=== PATIENT | female | born 1965 | race Caucasian/White ===

== ENCOUNTER 2018-03-04 03:18 | Inpatient (IN) ==
[2018-03-04] MEDS ORDERED: Ipratropium/Albuterol Neb 3 ML IH ONE (04:03)
[2018-03-04] MEDS ORDERED: 0.9 % Sodium Chloride 500 ML IVC ONE (04:05)
--- NOTE | 2018-03-04 04:05 | Emergency Department Note ---
Disposition Clinical Impression: Dyspnea, COPD (chronic obstructive pulmonary disease), History of lung cancer Disposition: Still a Patient Condition: Good Referrals: Jhonny Perdomo MD [Primary Care Provider] - Forms: ED Satisfaction Letter General Adult HPI - General Chief complaint: ED Shortness of Breath/Dyspnea Stated complaint: hamzah Time Seen by Provider: 03/04/18 03:40 Source: patient, EMS Limitations: no limitations Nursing Notes Reviewed: Yes Vital Signs Reviewed: Yes - History of Present Illness HPI Narrative: 52-year-old female with a past medical history of hypertension, hyperlipidemia, lung cancer, COPD. She reports approximately 2 weeks of shortness of breath. She has seen her oncologist about this who has put her on steroids. She is still on the stretcher now. She reports that she is not getting any better. She does state that it feels like her COPD is the problem. No hemoptysis. No hx of PE/DVT. Intermittent cough. No fever. Pain Scale: 0 Consistency: constant Improves with: nothing Worsens with: other (exertion) Associated symptoms: Reports: denies other symptoms Treatments Prior to Arrival: none - Related Data Home Medications Medication Instructions Recorded Confirmed Albuterol Neb [AccuNeb] 0.63 mg IH Q6H PRN 11/27/17 02/28/18 Albuterol Sulfate [Ventolin Hfa] 2 puff IH QID PRN 11/27/17 02/28/18 Atenolol [Tenormin] 25 mg PO DAILY 11/27/17 02/28/18 Diclofenac Sodium [Voltaren] 1 appl TP QID PRN 11/27/17 02/28/18 Gabapentin [Neurontin] 600 mg PO TID 11/27/17 02/28/18 Ipratropium/Albuterol Sulfate 1 puff IH QID 11/27/17 02/24/18 [Combivent Respimat 20-100 Mcg] Loratadine [Claritin] 10 mg PO DAILY 11/27/17 02/28/18 Montelukast [Singulair] 10 mg PO HS 11/27/17 02/28/18 Omeprazole [PriLOSEC] 20 mg PO DAILY 11/27/17 02/28/18 Oxybutynin [Ditropan] 2.5 mg PO DAILY 11/27/17 02/28/18 Oxygen 2 l NS AD 11/27/17 02/28/18 Spironolactone [Aldactone] 25 mg PO BID 11/27/17 02/28/18 DULoxetine [Cymbalta] 30 mg PO DAILY 11/29/17 02/28/18 Previous Rx's Medication Instructions Recorded Promethazine [Phenergan] 25 mg PO Q6HR PRN #30 tablet 01/23/18 Ondansetron [Zofran] 8 mg PO Q8HR PRN #30 tablet 02/10/18 OxyCODONE Immed Rel [Roxicodone 5 5 - 10 mg PO Q4H PRN 30 Days #240 02/10/18 MG] tablet ALPRAZolam [Xanax 0.5 MG Tablet] 0.5 mg PO QID PRN 30 Days #120 02/18/18 tablet Demeclocycline HCl 300 mg PO BID #60 tablet 02/19/18 Benzonatate [Tessalon] 100 mg PO TID #60 capsule 02/20/18 Guaifenesin [Mucus ER] 600 mg PO BID #60 tab.er.12h 02/20/18 Nystatin [Nystatin Suspension] 500,000 units PO QID #120 ml 02/20/18 Ipratropium/Albuterol Neb [Duoneb] 3 ml IH [id number] PRN #100 inhsol 02/25/18 predniSONE [PredniSONE] 10 mg PO DAILY #30 tablet 02/28/18 Allergies Allergy/AdvReac Type Severity Reaction Status Date / Time budesonide [From Symbicort] AdvReac Chest Pain Verified 02/28/18 14:33 Formoterol [From Symbicort] AdvReac Chest Pain Verified 02/28/18 14:33 All systems ED: reviewed and negative except as stated. Constitutional: Denies: fever ENT ED: Denies: throat pain Cardiovascular: Denies: chest pain Respiratory: Reports: cough, dyspnea Gastrointestinal: Denies: abdominal pain Integumentary: Denies: rash Past Medical History - Past Medical History Medical history: Reports: asthma, cancer, COPD, hyperlipidemia, hypertension Surgical history: Reports: appendectomy, , cholecystectomy Psychiatric history: Reports: anxiety, depression - Social History Smoking Status: Current every day smoker Smokeless Tobacco Status: No Alcohol use: Reports: none Drug use: Reports: none Physical Exam - General Limitations: no limitations General appearance: alert, in no apparent distress - Head Head exam: atraumatic - Eye Eye exam: Present: normal appearance, PERRL - ENT ENT exam: normal exam - Neck Neck exam: Present: normal inspection - Respiratory Respiratory exam: Present: other (rhonchi with occasional expiratory wheeze) - Cardiovascular Cardiovascular exam: Present: regular rate, normal rhythm - Abdominal Exam Abdominal exam: Present: soft, Non-Tender - Extremities Exam Extremities exam: Present: other (1+ bilateral edema.) - Back Exam Back exam: Present: normal inspection - Neurological Exam Neurological exam: Present: alert, oriented X3 - Psychiatric Psychiatric exam: Present: normal affect, normal mood - Skin Skin exam: Present: warm, dry Course Course Narrative: CTA pending. Labwork stable. Signed out to the day team to make final disposition pending results. She feels improvement after the breathing treatments. She does have a decreased BP, but is not symptomatic with it. Vital Signs Temperature 98.6 F 03/04/18 03:23 Pulse Rate 88 03/04/18 03:23 Respiratory Rate 18 03/04/18 03:23 Blood Pressure 97/60 03/04/18 03:23 O2 Sat by Pulse Oximetry 95 03/04/18 03:23 Temperature 98.6 F 03/04/18 03:23 Pulse Rate 103 03/04/18 06:05 Respiratory Rate 18 03/04/18 06:05 Blood Pressure 85/54 03/04/18 06:05 O2 Sat by Pulse Oximetry 93 03/04/18 06:05 Oxygen Delivery Oxygen Delivery Nasal Cannula Medical Decision Making - Medical Records Medical records reviewed: Yes I reviewed the patient's medical records. - Lab Data Lab results reviewed: Yes I reviewed the patient's lab results. Result diagrams: 03/04/18 04:23 03/04/18 04:23 Lab Results 03/04/18 03/04/18 03/04/18 Range/Units 04:23 04:23 04:23 WBC 2.5 L (4.3-11.1) K/mcL RBC 2.95 L (3.82-4.97) M/mcL Hgb 8.4 L (11.5-15.4) g/dL Hct 26.4 L (35.3-44.9) % MCV 89.5 (83.0-100.0) fL MCH 28.5 (28.0-33.3) pg MCHC 31.8 (31.6-35.5) g/dL RDW 13.4 (11.5-14.5) % Plt Count 301 (140-400) K/mcL MPV 9.3 L (9.4-12.4) fL Immature Gran % 4.4 H (0-4) % Seg Neutrophils % 80.4 % Lymphocytes % 10.0 % Monocytes % 4.4 % Eosinophils % 0.0 % Basophils % 0.8 % Neutrophils # 2.0 (1.6-8.9) K/mcL Lymphocytes # 0.3 L (0.6-4.6) K/mcL Monocytes # 0.1 (0.0-1.3) K/mcL Eosinophils # 0.0 (0.0-0.6) K/mcL Basophils # 0.0 (0.0-0.2) K/mcL D-Dimer 1220 H (0-500) ng/mLFEU Sodium 133 L (136-145) mEq/L Potassium 4.1 (3.5-5.1) mEq/L Chloride 90 L (98-107) mEq/L Carbon Dioxide 37 H (23-29) mEq/L BUN 16 (6-20) mg/dL Creatinine 0.57 L (0.60-1.20) mg/dL Est GFR ( Amer) > 60 (> 60) Est GFR (Non-Af Amer) > 60 (> 60) BUN/Creatinine Ratio 28 H (6-26) Glucose 115 H (70-105) mg/dL Calculated Osmolality 278 L (280-300) Calcium 9.4 (8.6-10.3) mg/dL Troponin I < 0.03 (< 0.04) ng/mL B-Natriuretic Peptide (Less than 100) pg/mL 03/04/18 Range/Units 04:23 WBC (4.3-11.1) K/mcL RBC (3.82-4.97) M/mcL Hgb (11.5-15.4) g/dL Hct (35.3-44.9) % MCV (83.0-100.0) fL MCH (28.0-33.3) pg MCHC (31.6-35.5) g/dL RDW (11.5-14.5) % Plt Count (140-400) K/mcL MPV (9.4-12.4) fL Immature Gran % (0-4) % Seg Neutrophils % % Lymphocytes % % Monocytes % % Eosinophils % % Basophils % % Neutrophils # (1.6-8.9) K/mcL Lymphocytes # (0.6-4.6) K/mcL Monocytes # (0.0-1.3) K/mcL Eosinophils # (0.0-0.6) K/mcL Basophils # (0.0-0.2) K/mcL D-Dimer (0-500) ng/mLFEU Sodium (136-145) mEq/L Potassium (3.5-5.1) mEq/L Chloride (98-107) mEq/L Carbon Dioxide (23-29) mEq/L BUN (6-20) mg/dL Creatinine (0.60-1.20) mg/dL Est GFR ( Amer) (> 60) Est GFR (Non-Af Amer) (> 60) BUN/Creatinine Ratio (6-26) Glucose (70-105) mg/dL Calculated Osmolality (280-300) Calcium (8.6-10.3) mg/dL Troponin I (< 0.04) ng/mL B-Natriuretic Peptide 86 (Less than 100) pg/mL - Radiology Data Radiology results reviewed: Yes I reviewed the patient's radiology results. - EKG Data EKG #1 EKG attestation: Yes I reviewed and interpreted this EKG. EKG shows normal: sinus rhythm Rate: normal Rhythm: NSR Interpretation: no acute changes Attestation Statement - Attestation Attestation: I examined this patient and my medical decision-making was reviewed with the Resident Physician. I agree with the documented findings, disposition and treatment plan as described except to the extent set forth below. Patient with dyspnea, history of cancer, will need CT scan of the chest to rule out pulmonary embolism. Possible pneumonia on chest x-ray. Would recommend admission for antibiotics, evaluation of dyspnea in the setting of chemotherapy.
[2018-03-04 04:38] LABS: Basophils % 0.8 %; Hematocrit 26.4 % (35.3-44.9); Hemoglobin 8.4 g/dL (11.5-15.4); Immature Granulocytes % 4.4 % (0-4); Lymphocytes # 0.3 K/mcL (0.6-4.6); Mean Corpuscular HGB Conc 31.8 g/dL (31.6-35.5); Mean Corpuscular Hemoglobin 28.5 pg (28.0-33.3); Mean Corpuscular Volume 89.5 fL (83.0-100.0); Mean Platelet Volume 9.3 fL (9.4-12.4); Monocytes # 0.1 K/mcL (0.0-1.3); Monocytes % 4.4 %; Platelet Count 301 K/mcL (140-400); Red Blood Count 2.95 M/mcL (3.82-4.97); Red Cell Distribution Width 13.4 % (11.5-14.5); Segmented Neutrophils % 80.4 %
[2018-03-04] MEDS ORDERED: Isovue-370 500 ML INFUS..BTL IV ONE (04:50)
[2018-03-04 05:02] LABS: Troponin I < 0.03 ng/mL (< 0.04)
[2018-03-04 05:03] LABS: BUN/Creatinine Ratio 28 (6-26); Blood Urea Nitrogen 16 mg/dL (6-20); Calcium 9.4 mg/dL (8.6-10.3); Carbon Dioxide 37 mEq/L (23-29); Chloride 90 mEq/L (98-107); Glucose 115 mg/dL (70-105); Osmolality,Calculated 278 (280-300); Potassium 4.1 mEq/L (3.5-5.1); Sodium 133 mEq/L (136-145); eGFR For African Americans > 60 (> 60); eGFR For Non-African Americans > 60 (> 60)
[2018-03-04] MEDS ORDERED: 0.9 % Sodium Chloride 1,000 ML IVC ONE (06:31)
[2018-03-04] MEDS ORDERED: Ondansetron 4 MG/2 ML VIAL IVP PRN (08:15)
[2018-03-04] MEDS ORDERED: Acetaminophen 325 MG TABLET PO PRN (08:15)
[2018-03-04] MEDS ORDERED: *HR* Promethazine 25 MG/ML VIAL IVP PRN (08:15)
[2018-03-04] MEDS ORDERED: Naloxone 0.4 MG/ML INJ IVP PRN (08:15)
[2018-03-04] MEDS ORDERED: levoFLOXacin 750 MG TABLET PO ONE (08:19)
[2018-03-04] MEDS ORDERED: ALPRAZolam 0.5 MG TABLET PO PRN (08:20)
--- NOTE | 2018-03-04 08:23 | Emergency Department Note ---
Disposition Clinical Impression: History of lung cancer Dyspnea Qualifiers: Dyspnea type: dyspnea on exertion Qualified Code(s): R06.09 - Other forms of dyspnea COPD (chronic obstructive pulmonary disease) Qualifiers: COPD type: unspecified COPD Qualified Code(s): J44.9 - Chronic obstructive pulmonary disease, unspecified Disposition: Admitted As Inpatient Condition: Good Referrals: Jhonny Perdomo MD [Primary Care Provider] - Forms: ED Satisfaction Letter Time of Disposition: 08:00 SOB HPI - General Chief Complaint: ED Shortness of Breath/Dyspnea Stated Complaint: hamzah Time Seen by Provider: 03/04/18 03:40 Source: patient, EMS Mode of arrival: ambulatory Limitations: no limitations Nursing Notes Reviewed: Yes Vital Signs Reviewed: Yes - Related Data Home Medications Medication Instructions Recorded Confirmed Albuterol Neb [AccuNeb] 0.63 mg IH Q6H PRN 11/27/17 03/04/18 Albuterol Sulfate [Ventolin Hfa] 2 puff IH QID PRN 11/27/17 03/04/18 Atenolol [Tenormin] 25 mg PO DAILY 11/27/17 03/04/18 Diclofenac Sodium [Voltaren] 1 appl TP QID PRN 11/27/17 03/04/18 Gabapentin [Neurontin] 600 mg PO TID 11/27/17 03/04/18 Ipratropium/Albuterol Sulfate 1 puff IH QID 11/27/17 03/04/18 [Combivent Respimat 20-100 Mcg] Loratadine [Claritin] 10 mg PO DAILY 11/27/17 03/04/18 Montelukast [Singulair] 10 mg PO HS 11/27/17 03/04/18 Omeprazole [PriLOSEC] 20 mg PO DAILY 11/27/17 03/04/18 Oxybutynin [Ditropan] 2.5 mg PO DAILY 11/27/17 03/04/18 Oxygen 2 l NS AD 11/27/17 03/04/18 Spironolactone [Aldactone] 25 mg PO BID 11/27/17 03/04/18 DULoxetine [Cymbalta] 30 mg PO DAILY 11/29/17 03/04/18 Previous Rx's Medication Instructions Recorded Promethazine [Phenergan] 25 mg PO Q6HR PRN #30 tablet 01/23/18 Ondansetron [Zofran] 8 mg PO Q8HR PRN #30 tablet 02/10/18 OxyCODONE Immed Rel [Roxicodone 5 5 - 10 mg PO Q4H PRN 30 Days #240 02/10/18 MG] tablet ALPRAZolam [Xanax 0.5 MG Tablet] 0.5 mg PO QID PRN 30 Days #120 02/18/18 tablet Benzonatate [Tessalon] 100 mg PO TID #60 capsule 02/20/18 Guaifenesin [Mucus ER] 600 mg PO BID #60 tab.er.12h 02/20/18 Nystatin [Nystatin Suspension] 500,000 units PO QID #120 ml 02/20/18 Ipratropium/Albuterol Neb [Duoneb] 3 ml IH [id number] PRN #100 inhsol 02/25/18 predniSONE [PredniSONE] 10 mg PO DAILY #30 tablet 02/28/18 Allergies Allergy/AdvReac Type Severity Reaction Status Date / Time budesonide [From Symbicort] AdvReac Chest Pain Verified 03/04/18 07:38 Formoterol [From Symbicort] AdvReac Chest Pain Verified 03/04/18 07:38 Constitutional: Denies: fever ENT ED: Denies: throat pain Cardiovascular: Denies: chest pain Respiratory: Reports: cough, dyspnea Gastrointestinal: Denies: abdominal pain Integumentary: Denies: rash Past Medical History - Past Medical History Medical history: Reports: asthma, cancer, COPD, hyperlipidemia, hypertension Surgical history: Reports: appendectomy, , cholecystectomy Psychiatric history: Reports: anxiety, depression - Social History Smoking Status: Current every day smoker Smokeless Tobacco Status: No Alcohol use: Reports: none Drug use: Reports: none Physical Exam - General Limitations: no limitations General appearance: alert, in no apparent distress Course Vital Signs Temperature 98.6 F 03/04/18 03:23 Pulse Rate 88 03/04/18 03:23 Respiratory Rate 18 03/04/18 03:23 Blood Pressure 97/60 03/04/18 03:23 O2 Sat by Pulse Oximetry 95 03/04/18 03:23 Temperature 98.6 F 03/04/18 03:23 Pulse Rate 96 03/04/18 08:01 Respiratory Rate 20 03/04/18 08:01 Blood Pressure 95/64 03/04/18 08:01 O2 Sat by Pulse Oximetry 98 03/04/18 08:01 Oxygen Delivery Oxygen Delivery Nasal Cannula Shortness of Breath/Dyspnea - [facility] Narrative Medical decision making narrative: 52-year-old female received in sign out at the start of my shift pending CTA of the chest. CT of the of the chest did not show evidence of infiltrate, likely shows radiation-induced changes from her chemotherapy and radiation therapy. Patient desatted to 89% on her baseline 2 L. Patient has increased work of breathing still in the emergency department. Patient given Solu-Medrol in the emergency department. She will be admitted to the hospitalist for further Evaluation of Her Dyspnea and Hypoxia Likely Secondary to Her Radiation and Chemotherapy. Unlikely pneumonia without fever - Medical Records Medical records reviewed: Yes I reviewed the patient's medical records. - Lab Data Lab results reviewed: Yes I reviewed the patient's lab results. Result diagrams: 03/04/18 04:23 03/04/18 04:23 Lab Results 03/04/18 03/04/18 03/04/18 Range/Units 04:23 04:23 04:23 WBC 2.5 L (4.3-11.1) K/mcL RBC 2.95 L (3.82-4.97) M/mcL Hgb 8.4 L (11.5-15.4) g/dL Hct 26.4 L (35.3-44.9) % MCV 89.5 (83.0-100.0) fL MCH 28.5 (28.0-33.3) pg MCHC 31.8 (31.6-35.5) g/dL RDW 13.4 (11.5-14.5) % Plt Count 301 (140-400) K/mcL MPV 9.3 L (9.4-12.4) fL Immature Gran % 4.4 H (0-4) % Seg Neutrophils % 80.4 % Lymphocytes % 10.0 % Monocytes % 4.4 % Eosinophils % 0.0 % Basophils % 0.8 % Neutrophils # 2.0 (1.6-8.9) K/mcL Lymphocytes # 0.3 L (0.6-4.6) K/mcL Monocytes # 0.1 (0.0-1.3) K/mcL Eosinophils # 0.0 (0.0-0.6) K/mcL Basophils # 0.0 (0.0-0.2) K/mcL D-Dimer 1220 H (0-500) ng/mLFEU Sodium 133 L (136-145) mEq/L Potassium 4.1 (3.5-5.1) mEq/L Chloride 90 L (98-107) mEq/L Carbon Dioxide 37 H (23-29) mEq/L BUN 16 (6-20) mg/dL Creatinine 0.57 L (0.60-1.20) mg/dL Est GFR ( Amer) > 60 (> 60) Est GFR (Non-Af Amer) > 60 (> 60) BUN/Creatinine Ratio 28 H (6-26) Glucose 115 H (70-105) mg/dL Calculated Osmolality 278 L (280-300) Calcium 9.4 (8.6-10.3) mg/dL Troponin I < 0.03 (< 0.04) ng/mL B-Natriuretic Peptide (Less than 100) pg/mL 03/04/18 Range/Units 04:23 WBC (4.3-11.1) K/mcL RBC (3.82-4.97) M/mcL Hgb (11.5-15.4) g/dL Hct (35.3-44.9) % MCV (83.0-100.0) fL MCH (28.0-33.3) pg MCHC (31.6-35.5) g/dL RDW (11.5-14.5) % Plt Count (140-400) K/mcL MPV (9.4-12.4) fL Immature Gran % (0-4) % Seg Neutrophils % % Lymphocytes % % Monocytes % % Eosinophils % % Basophils % % Neutrophils # (1.6-8.9) K/mcL Lymphocytes # (0.6-4.6) K/mcL Monocytes # (0.0-1.3) K/mcL Eosinophils # (0.0-0.6) K/mcL Basophils # (0.0-0.2) K/mcL D-Dimer (0-500) ng/mLFEU Sodium (136-145) mEq/L Potassium (3.5-5.1) mEq/L Chloride (98-107) mEq/L Carbon Dioxide (23-29) mEq/L BUN (6-20) mg/dL Creatinine (0.60-1.20) mg/dL Est GFR ( Amer) (> 60) Est GFR (Non-Af Amer) (> 60) BUN/Creatinine Ratio (6-26) Glucose (70-105) mg/dL Calculated Osmolality (280-300) Calcium (8.6-10.3) mg/dL Troponin I (< 0.04) ng/mL B-Natriuretic Peptide 86 (Less than 100) pg/mL - Radiology Data Radiology results reviewed: Yes I reviewed the patient's radiology results.
[2018-03-04] MEDS: methylPREDNISolone 125 MG/2 ML VIAL IVP ONE ×2 (08:45→10:15)
[2018-03-04] MEDS ORDERED: Ipratropium/Albuterol Neb 3 ML ONE (08:56)
[2018-03-04] MEDS ORDERED: Albuterol 2.5 MG/3 ML NEBULIZER IH ONE (08:57)
[2018-03-04] MEDS ORDERED: Albuterol 2.5 MG/3 ML NEBULIZER ONE ×2 (08:59→09:04)
--- NOTE | 2018-03-04 09:20 | Internal Med History&Physical ---
Date of Encounter: 03/04/18 Time of Encounter: 09:00 Internal Medicine - H&P: HPI Chief complaint: Shortness of breath, Cough Admitted From: Emergency Dept Plans for Post Hospital Care: Home History of present illness: Ms. 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 She denied any CP. She does c/o fatigue and weakness. She does look very lethargic. Past Med Surg Social Fam HX - Past Medical History Medical history: asthma, cancer, COPD, hyperlipidemia, hypertension Psychiatric history: anxiety, depression - Past Surgical History Surgical History: appendectomy, , cholecystectomy - Social History Smoking Status: Current every day smoker Smokeless Tobacco Status: No Alcohol use: none Drug use: none - Family History Mother Living Status: Hx Family Cardiac Disorders: No Hx Family Respiratory Disorders: Yes (COPD) Hx Family Cancer: No Hx Family GI Disorders: Yes (hernia) Hx Family Endocrine Disorder: Yes (thyriod) Hx Family Neuromuscular Disorders: No Hx Family Neurologic Disorders: No Hx Family HEENT Disorders: No Hx Family Autoimmune Disorders: No Father Living Status: Hx Family Cardiac Disorders: Yes Hx Family Respiratory Disorders: Yes (COPD) Hx Family Cancer: Yes (colon cancer) Hx Family GI Disorders: No Hx Family Endocrine Disorder: No Hx Family Neuromuscular Disorders: No Hx Family Neurologic Disorders: No Hx Family HEENT Disorders: No Hx Family Autoimmune Disorders: No Internal Medicine - H&P: Meds Albuterol Neb [AccuNeb] 0.63 mg IH Q6H PRN 11/27/17 [History] Albuterol Sulfate [Ventolin Hfa] 2 puff IH QID PRN 11/27/17 [History] Atenolol [Tenormin] 25 mg PO DAILY 11/27/17 [History] Diclofenac Sodium [Voltaren] 1 appl TP QID PRN 11/27/17 [History] Gabapentin [Neurontin] 600 mg PO TID 11/27/17 [History] Ipratropium/Albuterol Sulfate [Combivent Respimat 20-100 Mcg] 1 puff IH QID [History] Loratadine [Claritin] 10 mg PO DAILY 11/27/17 [History] Montelukast [Singulair] 10 mg PO HS 11/27/17 [History] Omeprazole [PriLOSEC] 20 mg PO DAILY 11/27/17 [History] Oxybutynin [Ditropan] 2.5 mg PO DAILY 11/27/17 [History] Oxygen 2 l NS AD 11/27/17 [History] Spironolactone [Aldactone] 25 mg PO BID 11/27/17 [History] DULoxetine [Cymbalta] 30 mg PO DAILY 11/29/17 [History] Promethazine [Phenergan] 25 mg PO Q6HR PRN #30 tablet 01/23/18 [Rx] Ondansetron [Zofran] 8 mg PO Q8HR PRN #30 tablet 02/10/18 [Rx] OxyCODONE Immed Rel [Roxicodone 5 MG] 5 - 10 mg PO Q4H PRN 30 Days #240 tablet 02/10/18 [Rx] ALPRAZolam [Xanax 0.5 MG Tablet] 0.5 mg PO QID PRN 30 Days #120 tablet 02/18/18 [Rx] Benzonatate [Tessalon] 100 mg PO TID #60 capsule 02/20/18 [Rx] Guaifenesin [Mucus ER] 600 mg PO BID #60 tab.er.12h 02/20/18 [Rx] Nystatin [Nystatin Suspension] 500,000 units PO QID #120 ml 02/20/18 [Rx] Ipratropium/Albuterol Neb [Duoneb] 3 ml IH [id number] PRN #100 inhsol 02/25/18 [Rx] predniSONE [PredniSONE] 10 mg PO DAILY #30 tablet 02/28/18 [Rx] 3 Allergy/AdvReac Type Severity Reaction Status Date / Time budesonide [From Symbicort] AdvReac Chest Pain Verified 03/04/18 07:38 Formoterol [From Symbicort] AdvReac Chest Pain Verified 03/04/18 07:38 All Systems PM: A 10-system review of systems was performed and is negative for pertinent findings except as documented above in the HPI. Review of systems: All the systems are reviewed everything is benign except the systems and symptoms I mentioned in the history of present illness - Constitutional Vitals: Temp Pulse Resp BP Pulse Ox 98.6 F 115 18 130/78 99 03/04/18 03:23 03/04/18 08:33 03/04/18 09:02 03/04/18 08:33 03/04/18 09:02 General appearance: Present: mild distress, A&O X 3, answers questions appropriately - Head Head exam: Present: atraumatic, normal inspection - Neck Neck exam general surgery: Present: supple - Respiratory Respiratory exam: Present: decreased breath sounds, respiratory distress (mild) , rhonchi (+), wheezes (moderate). Absent: rales - Cardiovascular Cardiovascular exam: Present: +S1, +S2, tachycardia. Absent: systolic murmur - GI/Abdominal GI/Abdominal exam: Present: normal bowel sounds, soft. Absent: rebound, rigid, tenderness - Extremities Exam Extremities exam: Absent: calf tenderness, pedal edema, tenderness - Back Exam Back exam: Absent: CVA tenderness (L), CVA tenderness (R) - Neurological Exam Neurological exam: Present: alert, oriented X3 - Psychiatric Psychiatric exam: Present: anxious - Skin Skin exam: Present: dry. Absent: rash Internal Med - H&P Results - Labs CBC & Chem 7: 03/04/18 04:23 03/04/18 04:23 - Assessment and plan (1) SIRS (systemic inflammatory response syndrome) Current Visit: Yes Status: Acute Assessment and plan: Patient does meet SIRS criteria with sinus tachycardia, leukopenia and source of infection as pneumonia Cont empirical abx Levaquin will place the pt on tele started on IV hydration (2) Acute and chronic respiratory failure with hypoxia Current Visit: No Status: Acute Assessment and plan: Due to pneumonia with underlying COPD and lung cancer reviewed chest x-ray showed left lower lobe atelectasis verses pneumonia continue broad-spectrum antibiotic Levaquin started her on Duoneb schedule Q4 H also placed her on high-dose IV steroids Solu-Medrol 40 mg Q six-hour titrating her oxygen as she required (3) Acute exacerbation of chronic obstructive airways disease Current Visit: No Status: Acute Assessment and plan: See above (4) Pneumonia Current Visit: No Status: Acute Assessment and plan: Mostly bacterial will check sputum culture, Gram stain, step pneumonia, Legionella and respiratory viral panel continue empirical antibiotic with Levaquin Qualifiers: Pneumonia type: due to unspecified organism Laterality: left Lung location: lower lobe of lung Qualified Code(s): J18.1 - Lobar pneumonia, unspecified organism (5) Small cell carcinoma Current Visit: No Status: Acute Assessment and plan: Finished chemo a week ago now undergoing active radiotherapy (6) Anxiety Current Visit: No Status: Chronic Assessment and plan: Resumed home medications Xanax (7) Tobacco abuse Current Visit: No Status: Chronic (8) Protein-calorie malnutrition, mild Current Visit: Yes Status: Acute Assessment and plan: She does look like she has mild protein calorie malnutrition I would consult parking enforcer - Time Spent With Patient Total time spent is greater than 50% in coordination of care (as documented) at patient's floor/unit and/or counseling patient:
[2018-03-04] MEDS: Levofloxacin 500 MG/100 ML 500 MG/100 ML BAG IVPB SCH (10:45)
[2018-03-04] MEDS: 0.9 % Sodium Chloride 1,000 ML IVC SCH ×2 (10:45→23:00)
[2018-03-04] MEDS: Gabapentin 300 MG CAPSULE PO SCH ×3 (10:46→21:37)
[2018-03-04] MEDS: Loratadine 10 MG TABLET PO SCH (10:46)
[2018-03-04] MEDS: Nystatin SUSP 5 ML UD.LIQ PO SCH ×4 (10:46→21:33)
[2018-03-04] MEDS: Benzonatate 100 MG CAPSULE PO SCH ×3 (10:46→21:13)
[2018-03-04] MEDS: Ipratropium/Albuterol Neb 3 ML IH SCH ×4 (11:23→23:22)
[2018-03-04 11:41] LABS: Adenovirus Not Detected (Not Detect); Bordetella Pertussis Not Detected (Not Detect); Chlamydophila pneumoniae Not Detected (Not Detect); Coronavirus 229E Not Detected (Not Detect); Coronavirus HKU1 Not Detected (Not Detect); Coronavirus NL63 Not Detected (Not Detect); Coronavirus OC43 Not Detected (Not Detect); Human Metapneumovirus Not Detected (Not Detect); Human Rhinovirus/Enterovirus Not Detected (Not Detect); Influenza A Subtype 2009 H1 Not Detected (Not Detect); Influenza A Untypeable Not Detected (Not Detect); Influenza B Not Detected (Not Detect); Mycoplasma pneumoniae Not Detected (Not Detect); Parainfluenza Virus 1 Not Detected (Not Detect); Parainfluenza Virus 2 Not Detected (Not Detect); Parainfluenza Virus 3 Not Detected (Not Detect); Parainfluenza Virus 4 Not Detected (Not Detect); Respiratory Syncytial Virus Not Detected (Not Detect)
[2018-03-04] MEDS: MethylPREDNISolone 40 MG/ML VIAL IVP SCH ×3 (13:34→23:59)
[2018-03-04] MEDS: *HR* HYDROcodone/Acet 5/325 mg TABLET PO PRN ×2 (13:46→21:27)
[2018-03-05] MEDS: Ipratropium/Albuterol Neb 3 ML IH SCH ×6 (03:42→23:27)
[2018-03-05] MEDS: *HR* Enoxaparin 40 MG/0.4 ML SYRINGE SQ SCH (05:21)
[2018-03-05] MEDS: MethylPREDNISolone 40 MG/ML VIAL IVP SCH ×3 (05:21→16:47)
[2018-03-05] MEDS: *HR* HYDROcodone/Acet 5/325 mg TABLET PO PRN ×2 (05:44→16:47)
[2018-03-05 07:11] LABS: Red Cell Distribution Width 13.3 % (11.5-14.5)
[2018-03-05 07:13] LABS: Hematocrit 22.7 % (35.3-44.9); Hemoglobin 7.2 g/dL (11.5-15.4); Immature Granulocytes % 1.6 % (0-4); Lymphocytes # 0.1 K/mcL (0.6-4.6); Mean Corpuscular HGB Conc 31.7 g/dL (31.6-35.5); Mean Corpuscular Hemoglobin 28.1 pg (28.0-33.3); Mean Corpuscular Volume 88.7 fL (83.0-100.0); Mean Platelet Volume 8.7 fL (9.4-12.4); Monocytes # 0.1 K/mcL (0.0-1.3); Monocytes % 3.8 %; Neutrophils # 1.6 K/mcL (1.6-8.9); Platelet Count 234 K/mcL (140-400); Red Blood Count 2.56 M/mcL (3.82-4.97); Segmented Neutrophils % 88.6 %
[2018-03-05] MEDS ORDERED: Benzonatate 100 MG CAPSULE PO PRN (07:17)
[2018-03-05 07:30] LABS: BUN/Creatinine Ratio 24 (6-26); Blood Urea Nitrogen 12 mg/dL (6-20); Calcium 8.3 mg/dL (8.6-10.3); Carbon Dioxide 32 mEq/L (23-29); Chloride 93 mEq/L (98-107); Glucose 193 mg/dL (70-105); Osmolality,Calculated 273 (280-300); Sodium 129 mEq/L (136-145); eGFR For African Americans > 60 (> 60); eGFR For Non-African Americans > 60 (> 60)
[2018-03-05 07:49] LABS: Anisocytosis 1+ (Not Present); Platelet Estimate Normal (Normal)
[2018-03-05] MEDS: Gabapentin 300 MG CAPSULE PO SCH ×3 (08:05→21:49)
[2018-03-05] MEDS: Loratadine 10 MG TABLET PO SCH (08:06)
[2018-03-05] MEDS: Levofloxacin 500 MG/100 ML 500 MG/100 ML BAG IVPB SCH (08:06)
[2018-03-05] MEDS: Nystatin SUSP 5 ML UD.LIQ PO SCH ×4 (08:06→21:49)
[2018-03-05] MEDS: 0.9 % Sodium Chloride 1,000 ML IVC SCH (08:07)
[2018-03-05] MEDS: *HR* OxyCODONE Immed Rel 5 MG TABLET PO PRN ×2 (08:29→21:48)
[2018-03-05] MEDS: Spironolactone 25 MG TABLET PO SCH ×2 (08:29→21:49)
[2018-03-05] MEDS ORDERED: Albuterol 2.5 MG/3 ML NEBULIZER IH PRN (12:08)
--- NOTE | 2018-03-05 12:16 | Electrocardiograph Report ---
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
--- NOTE | 2018-03-05 12:51 | Internal Med Progress Note ---
Date of Encounter: 03/05/18 Time of Encounter: 12:49 - Assessment and plan (1) Acute exacerbation of chronic obstructive airways disease Current Visit: Yes Status: Acute Assessment and plan: Continue duonebs,steroids, antibiotics,O2 supplement (2) Pneumonia Current Visit: Yes Status: Acute Assessment and plan: Legionella and Strep Ag negative Blood culture negative Awaiting sputum culture Continue Levaquin, change to full dose 750mg daily Qualifiers: Pneumonia type: due to unspecified organism Laterality: left Lung location: lower lobe of lung Qualified Code(s): J18.1 - Lobar pneumonia, unspecified organism (3) Tobacco abuse Current Visit: Yes Status: Chronic Assessment and plan: encourage cessation (4) Acute and chronic respiratory failure with hypoxia Current Visit: Yes Status: Acute Assessment and plan: Due to pneumonia with underlying COPD and lung cancer Continue O2, now at home dose of O2 (5) Anxiety Current Visit: Yes Status: Chronic Assessment and plan: Resumed home medications Xanax (6) Small cell carcinoma Current Visit: Yes Status: Chronic Assessment and plan: Finished chemo a week ago now undergoing active radiotherapy (7) SIRS (systemic inflammatory response syndrome) Current Visit: Yes Status: Acute Assessment and plan: See sepsis (8) Protein-calorie malnutrition, mild Current Visit: Yes Status: Chronic Assessment and plan: Follow tire maintenance technician /safety and health consultant blair (9) Sepsis Current Visit: Yes Status: Acute Assessment and plan: met sepsis criteria on admission with leukopenia, tacycardia, tachypnea and PNA Blood culture neg Legionella and Strep Ag negative Continue Levaquin IV Qualifiers: Sepsis type: sepsis due to unspecified organism Qualified Code(s): A41.9 - Sepsis, unspecified organism - Time Spent With Patient Total time spent is greater than 50% in coordination of care (as documented) at patient's floor/unit and/or counseling patient: - Subjective Interval history: Seen and examined at the bedside. She reports some improvement in her breathing. She still has cough minimal sputum production. Review patient home medications, and increase Levaquin [place] 7050 mg daily. Blood culture, streptococcal antigen, and Legionella antigen and negative. - Constitutional Vitals: Temp Pulse Resp BP Pulse Ox 97.6 F 86 18 98/61 88 03/05/18 10:39 03/05/18 10:39 03/05/18 10:55 03/05/18 10:39 03/05/18 10:55 General appearance: Present: A&O X 3, pleasant, no acute distress, answers questions appropriately - Head Additional comments: alopecia - Eye Eye exam: Present: PERRL, conjuntiva pink, sclera anicteric Pupils: Present: PERRL - ENT ENT exam: Present: mucous membranes moist - Neck Neck exam general surgery: Present: supple, trachea midline. Absent: lymphadenopathy - Respiratory Respiratory exam: Present: rhonchi - Cardiovascular Cardiovascular exam: Present: RRR, +S1, +S2. Absent: diastolic murmur, gallop, rubs, systolic murmur - GI/Abdominal GI/Abdominal exam: Present: normal bowel sounds, soft, no peritoneal signs. Absent: distended, tenderness - Extremities Exam Extremities exam: Present: warm, radial pulses palpable and symmetrical. Absent : calf tenderness, cyanotic, pedal edema - Neurological Exam Neurological exam: Present: alert, CN II-XII intact, oriented X3, no focal deficits. Absent: pronater drift, facial droop, speech deficit - Skin Skin exam: Present: dry, intact Internal Medicine: Result - Labs CBC & Chem 7: 03/05/18 06:58 03/05/18 06:58 Labs: Short CBC 03/05/18 Range/Units 06:58 WBC 1.8 L (4.3-11.1) K/mcL Hgb 7.2 L (11.5-15.4) g/dL Hct 22.7 L (35.3-44.9) % Plt Count 234 (140-400) K/mcL Neutrophils # 1.6 (1.6-8.9) K/mcL BMP 03/05/18 06:58 Sodium 129 L Potassium 4.0 Chloride 93 L Carbon Dioxide 32 H BUN 12 Creatinine 0.51 L Glucose 193 H Calcium 8.3 L - ABG Interpretation ABG results: PT/INR, D-dimer D-Dimer 1220 ng/mLFEU (0-500) H 03/04/18 04:23 Consult Discharge Plan - Plan Referrals: Jhonny Perdomo MD [Primary Care Provider] - 03/14/18 1:15 pm (Please follow up as schedule...)
[2018-03-06] MEDS: MethylPREDNISolone 40 MG/ML VIAL IVP SCH ×4 (00:52→16:39)
[2018-03-06] MEDS: Ipratropium/Albuterol Neb 3 ML IH SCH ×5 (03:46→20:04)
[2018-03-06] MEDS: *HR* Enoxaparin 40 MG/0.4 ML SYRINGE SQ SCH (05:20)
[2018-03-06] MEDS: *HR* HYDROcodone/Acet 5/325 mg TABLET PO PRN ×3 (05:37→20:48)
[2018-03-06 06:40] LABS: Hemoglobin 8.1 g/dL (11.5-15.4); Immature Granulocytes % 1.2 % (0-4); Lymphocytes # 0.1 K/mcL (0.6-4.6); Lymphocytes % 4.9 %; Mean Corpuscular HGB Conc 32.4 g/dL (31.6-35.5); Mean Corpuscular Hemoglobin 29.1 pg (28.0-33.3); Mean Corpuscular Volume 89.9 fL (83.0-100.0); Mean Platelet Volume 9.7 fL (9.4-12.4); Monocytes # 0.1 K/mcL (0.0-1.3); Neutrophils # 1.4 K/mcL (1.6-8.9); Nucleated Red Blood Cells 2.5 /100 WBC (0); Platelet Count 264 K/mcL (140-400); Red Blood Count 2.78 M/mcL (3.82-4.97); Red Cell Distribution Width 13.3 % (11.5-14.5); Segmented Neutrophils % 85.9 %
[2018-03-06 06:49] LABS: BUN/Creatinine Ratio 18 (6-26); Blood Urea Nitrogen 10 mg/dL (6-20); Calcium 8.7 mg/dL (8.6-10.3); Carbon Dioxide 33 mEq/L (23-29); Chloride 91 mEq/L (98-107); Glucose 198 mg/dL (70-105); Osmolality,Calculated 279 (280-300); Potassium 3.9 mEq/L (3.5-5.1); Sodium 132 mEq/L (136-145); eGFR For African Americans > 60 (> 60); eGFR For Non-African Americans > 60 (> 60)
[2018-03-06 07:34] LABS: Platelet Estimate Normal (Normal)
[2018-03-06] MEDS: Gabapentin 300 MG CAPSULE PO SCH ×3 (08:50→20:47)
[2018-03-06] MEDS: Spironolactone 25 MG TABLET PO SCH ×2 (08:51→20:46)
[2018-03-06] MEDS: Loratadine 10 MG TABLET PO SCH (08:51)
[2018-03-06] MEDS: Nystatin SUSP 5 ML UD.LIQ PO SCH ×4 (08:59→20:47)
[2018-03-06] MEDS ORDERED: Levofloxacin 750 MG/150 ML 750 MG/150 ML BAG IVPB SCH (09:00)
[2018-03-06] MEDS: *HR* OxyCODONE Immed Rel 5 MG TABLET PO PRN ×2 (09:00→16:38)
--- NOTE | 2018-03-06 12:24 | Internal Med Progress Note ---
Date of Encounter: 03/06/18 Time of Encounter: 10:00 - Assessment and plan (1) Acute exacerbation of chronic obstructive airways disease Current Visit: Yes Status: Acute Assessment and plan: Continue duonebs,steroids, antibiotics,O2 supplement (2) Pneumonia Current Visit: Yes Status: Acute Assessment and plan: Legionella and Strep Ag negative Blood culture negative Awaiting sputum culture, prelim negative Continue Levaquin 750mg daily Qualifiers: Pneumonia type: due to unspecified organism Laterality: left Lung location: lower lobe of lung Qualified Code(s): J18.1 - Lobar pneumonia, unspecified organism (3) Tobacco abuse Current Visit: Yes Status: Chronic Assessment and plan: encourage cessation (4) Acute and chronic respiratory failure with hypoxia Current Visit: Yes Status: Acute Assessment and plan: Due to pneumonia with underlying COPD and lung cancer Continue O2, now at home dose of O2 (5) Anxiety Current Visit: Yes Status: Chronic Assessment and plan: Continue home medications Xanax (6) Small cell carcinoma Current Visit: Yes Status: Chronic Assessment and plan: Finished chemo a week ago now undergoing active radiotherapy (7) SIRS (systemic inflammatory response syndrome) Current Visit: Yes Status: Acute (8) Protein-calorie malnutrition, mild Current Visit: Yes Status: Chronic Assessment and plan: Follow 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 /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 mixer 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 (9) Sepsis Current Visit: Yes Status: Acute Assessment and plan: met sepsis criteria on admission with leukopenia, tacycardia, tachypnea and PNA Blood culture neg Legionella and Strep Ag negative Continue Levaquin IV Qualifiers: Sepsis type: sepsis due to unspecified organism Qualified Code(s): A41.9 - Sepsis, unspecified organism (10) Hyponatremia Current Visit: Yes Status: Chronic Assessment and plan: due to SIADH from [place] Resume home Demeclocycline - Time Spent With Patient Total time spent is greater than 50% in coordination of care (as documented) at patient's floor/unit and/or counseling patient: - Subjective Interval history: Seen and examined at the bedside. She reports some improvement in her breathing. She still has cough minimal sputum production. Blood culture, streptococcal antigen, and Legionella antigen and negative. - Constitutional Vitals: Temp Pulse Resp BP Pulse Ox 98.2 F 91 16 97/56 100 03/06/18 10:52 03/06/18 10:52 03/06/18 11:19 03/06/18 10:52 03/06/18 11:19 General appearance: Present: A&O X 3, pleasant, no acute distress, answers questions appropriately - Head Head exam: Present: atraumatic, normocephalic - Eye Eye exam: Present: PERRL, conjuntiva pink, sclera anicteric Pupils: Present: PERRL - Neck Neck exam general surgery: Present: supple, trachea midline. Absent: lymphadenopathy - Respiratory Respiratory exam: Present: wheezes. Absent: accessory muscle use, rales, rhonchi - Cardiovascular Cardiovascular exam: Present: RRR, +S1, +S2. Absent: diastolic murmur, gallop, rubs, systolic murmur - GI/Abdominal GI/Abdominal exam: Present: normal bowel sounds, soft, no peritoneal signs. Absent: distended, tenderness - Extremities Exam Extremities exam: Present: warm, radial pulses palpable and symmetrical. Absent : calf tenderness, cyanotic, pedal edema - Neurological Exam Neurological exam: Present: alert, CN II-XII intact, oriented X3, no focal deficits. Absent: pronater drift, facial droop, speech deficit - Skin Skin exam: Present: dry, intact Internal Medicine: Result - Labs CBC & Chem 7: 03/06/18 05:33 03/06/18 05:33 Labs: Short CBC 03/06/18 Range/Units 05:33 WBC 1.6 L (4.3-11.1) K/mcL Hgb 8.1 L (11.5-15.4) g/dL Hct 25.0 L (35.3-44.9) % Plt Count 264 (140-400) K/mcL Neutrophils # 1.4 L (1.6-8.9) K/mcL BMP 03/06/18 05:33 Sodium 132 L Potassium 3.9 Chloride 91 L Carbon Dioxide 33 H BUN 10 Creatinine 0.55 L Glucose 198 H Calcium 8.7 - ABG Interpretation ABG results: PT/INR, D-dimer D-Dimer 1220 ng/mLFEU (0-500) H 03/04/18 04:23 Consult Discharge Plan - Plan Referrals: Jhonny Perdomo MD [Primary Care Provider] - 03/14/18 1:15 pm (Please follow up as schedule...)
[2018-03-07] MEDS: Ipratropium/Albuterol Neb 3 ML IH SCH ×6 (00:55→20:54)
[2018-03-07] MEDS: MethylPREDNISolone 40 MG/ML VIAL IVP SCH (01:11)
[2018-03-07] MEDS: *HR* OxyCODONE Immed Rel 5 MG TABLET PO PRN ×2 (01:11→09:07)
[2018-03-07] MEDS: *HR* Enoxaparin 40 MG/0.4 ML SYRINGE SQ SCH (04:54)
[2018-03-07] MEDS: *HR* HYDROcodone/Acet 5/325 mg TABLET PO PRN ×2 (04:55→14:00)
[2018-03-07] MEDS ORDERED: predniSONE 20 MG TABLET PO SCH (09:00)
[2018-03-07] MEDS ORDERED: levoFLOXacin 750 MG TABLET PO SCH (09:00)
[2018-03-07] MEDS: Loratadine 10 MG TABLET PO SCH (09:06)
[2018-03-07] MEDS: Spironolactone 25 MG TABLET PO SCH (09:06)
[2018-03-07] MEDS: Gabapentin 300 MG CAPSULE PO SCH ×2 (09:06→14:00)
[2018-03-07] MEDS: Nystatin SUSP 5 ML UD.LIQ PO SCH ×2 (09:06→14:00)
--- NOTE | 2018-03-07 11:51 | Discharge Summary ---
- NOTES TO OUTPATIENT PROVIDER Notes to Outpatient Provider: Admitted for pneumonia and COPDE. Discharged on prednisone taper and levaquin, to complete 7 days of treatment. Other chronic medical conditions remain stable Date of Encounter: 03/07/18 Time of Encounter: 11:42 - Discharge Diagnosis (1) Acute exacerbation of chronic obstructive airways disease Priority: Primary Status: Acute (2) Pneumonia Priority: Primary Status: Acute Qualifiers: Pneumonia type: due to unspecified organism Laterality: left Lung location: lower lobe of lung Qualified Code(s): J18.1 - Lobar pneumonia, unspecified organism (3) Tobacco abuse Priority: Secondary Status: Chronic (4) Acute and chronic respiratory failure with hypoxia Priority: Primary Status: Acute (5) Anxiety Priority: Secondary Status: Chronic (6) Small cell carcinoma Priority: Secondary Status: Chronic (7) SIRS (systemic inflammatory response syndrome) Priority: Primary Status: Acute (8) Protein-calorie malnutrition, mild Priority: Secondary Status: Chronic (9) Sepsis Priority: Primary Status: Acute Qualifiers: Sepsis type: sepsis due to unspecified organism Qualified Code(s): A41.9 - Sepsis, unspecified organism (10) Hyponatremia Priority: Secondary Status: Chronic Hospital course: Ms. Marie is a 52 year old female with small call lung CA on chemo and radiation, Anxiety, tobacco abuse, SIADH She was admitted and managed for sepsis secondary to Pneumonia, acute on chronic hypoxic respiratory failure secondary to Pneumonia and COPD exacerbation Sputum culture as well as Urine Legionella and Strep Ag were negative. CTA ruled out pulmonary embolism and showed interval decrease in the size of the mediastinal and right hilar lymphadenopathy and stable left adrenal mass, severe emphysematous changes, no definite consolidations noted. CBC showed leukopenia, and chem showed chronic hyponatremia The patient was managed with antibiotics, steroids, oxygen supplementation and inhaled nebulizers. She is seen and examined at the bedside today. Cough is still productive of mucoid sputum, she remains afebrile, white count is stable leukopenic, but she may stable. She has no new complaints. Her oxygen requirement has returned to her baseline. She has no new complaints. She is medically stable to be discharged home on oral antibiotics to complete a 7 day course, and tapering prednisone. Other chronic medical conditions remained stable. Follow-up with radiation oncologist, oncologist, and primary care physician, and continue other home medications. Tobacco cessation counseling done. Plan of care was discussed with the patient who verbalized understanding. Discharge discussed with: patient, nurse, case management Time spent discussing smoking cessation with patient: 3 to 10 minutes - Time Spent with Patient Total time spent providing and/or coordinating discharge services: Greater than 30 minutes - Discharge Medications Home Medications: Albuterol Neb [AccuNeb] 0.63 mg IH Q6H PRN 11/27/17 [History] Albuterol Sulfate [Ventolin Hfa] 2 puff IH QID PRN 11/27/17 [History] Atenolol [Tenormin] 25 mg PO DAILY 11/27/17 [History] Diclofenac Sodium [Voltaren] 1 appl TP QID PRN 11/27/17 [History] Gabapentin [Neurontin] 600 mg PO TID 11/27/17 [History] Ipratropium/Albuterol Sulfate [Combivent Respimat 20-100 Mcg] 1 puff IH QID [History] Loratadine [Claritin] 10 mg PO DAILY 11/27/17 [History] Montelukast [Singulair] 10 mg PO HS 11/27/17 [History] Omeprazole [PriLOSEC] 20 mg PO DAILY 11/27/17 [History] Oxybutynin [Ditropan] 2.5 mg PO DAILY 11/27/17 [History] Oxygen 2 l NS AD 11/27/17 [History] Spironolactone [Aldactone] 25 mg PO BID 11/27/17 [History] DULoxetine [Cymbalta] 30 mg PO DAILY 11/29/17 [History] Promethazine [Phenergan] 25 mg PO Q6HR PRN #30 tablet 01/23/18 [Rx] Ondansetron [Zofran] 8 mg PO Q8HR PRN #30 tablet 02/10/18 [Rx] OxyCODONE Immed Rel [Roxicodone 5 MG] 5 - 10 mg PO Q4H PRN 30 Days #240 tablet 02/10/18 [Rx] ALPRAZolam [Xanax 0.5 MG Tablet] 0.5 mg PO QID PRN 30 Days #120 tablet 02/18/18 [Rx] Benzonatate [Tessalon] 100 mg PO TID #60 capsule 02/20/18 [Rx] Guaifenesin [Mucus ER] 600 mg PO BID #60 tab.er.12h 02/20/18 [Rx] Nystatin [Nystatin Suspension] 500,000 units PO QID #120 ml 02/20/18 [Rx] Ipratropium/Albuterol Neb [Duoneb] 3 ml IH [id number] PRN #100 inhsol 02/25/18 [Rx] Demeclocycline [Declomycin] 300 mg PO Q12HR tablet 03/07/18 [Rx] Docusate [Colace] 100 mg PO BID PRN capsule 03/07/18 [Rx] levoFLOXacin [Levaquin] 750 mg PO DAILY #4 tablet 03/07/18 [Rx] predniSONE [PredniSONE] See Taper PO DAILY #20 tablet 03/07/18 [Rx] Allergies/Adverse Reactions: 3 Allergy/AdvReac Type Severity Reaction Status Date / Time budesonide [From Symbicort] AdvReac Chest Pain Verified 03/04/18 07:38 Formoterol [From Symbicort] AdvReac Chest Pain Verified 03/04/18 07:38 Date of admission: 03/04/18 08:53 Primary care physician: Jhonny Perdomo MD Consults: 03/04/18 09:28 Consult to Nutrition [CONS] Routine Comment: Consulting Provider: NUTRITION Reason for Dietary Consult: PO Supplementation Discharging clinician: Williams Hernandez Anticipated date of discharge: 03/07/18 - Constitutional Vitals: Temp Pulse Resp BP Pulse Ox 98.4 F 101 18 114/70 95 03/07/18 09:40 03/07/18 09:40 03/07/18 09:40 03/07/18 09:40 03/07/18 09:40 General appearance: Present: A&O X 3, pleasant, no acute distress, answers questions appropriately - Head Head exam: Present: atraumatic, normocephalic - Eye Eye exam: Present: PERRL, conjuntiva pink, sclera anicteric Pupils: Present: PERRL - Neck Neck exam general surgery: Present: supple, trachea midline. Absent: lymphadenopathy - Respiratory Respiratory exam: Present: rhonchi. Absent: stridor, wheezes, tachypnea - Cardiovascular Cardiovascular exam: Present: RRR, +S1, +S2. Absent: diastolic murmur, gallop, rubs, systolic murmur - GI/Abdominal GI/Abdominal exam: Present: normal bowel sounds, soft, no peritoneal signs. Absent: distended, tenderness - Extremities Exam Extremities exam: Present: warm, radial pulses palpable and symmetrical. Absent : calf tenderness, cyanotic, pedal edema - Neurological Exam Neurological exam: Present: alert, CN II-XII intact, oriented X3, no focal deficits. Absent: pronater drift, facial droop, speech deficit - Skin Skin exam: Present: dry, intact - Patient Status Disposition: Home, Self-Care Condition: Good Functional capacity at discharge: independent ambulation Overall status at discharge: patient is progressing back to baseline - Discharge Instructions Follow Up With: Jhonny Perdomo MD [Primary Care Provider] - 03/14/18 1:15 pm (Please follow up as schedule...) - Diet and Activity Activity: resume usual activities as tolerated, wear oxygen at all times Diet: low salt diet
[2018-03-07 15:40] VITALS: BP 109/62
== END 2018-03-07 17:45 | disposition home or self-care (01) | DRG 720 ==
LOC: EMEROO 03:18 → 2ANU 03:18 → SUATTDRO 08:53 → 2ANU 09:27
PROVIDERS: ADMIT Family Medicine; ATTEND Internal Medicine

== ENCOUNTER 2018-03-29 12:27 | Inpatient (IN) ==
[2018-03-29] MEDS ORDERED: Ipratropium/Albuterol Neb 3 ML IH ONE (12:33)
[2018-03-29] MEDS ORDERED: methylPREDNISolone 125 MG/2 ML VIAL IVP ONE (12:33)
[2018-03-29] MEDS ORDERED: Isovue-370 500 ML INFUS..BTL IV ONE (12:37)
[2018-03-29] MEDS ORDERED: Piperacillin/Tazobactam 3.375 GM in 0.9 % Sodium Chloride Mini Bag 100 ML IVPB ONE (12:38)
[2018-03-29] MEDS ORDERED: Levofloxacin 750 MG/150 ML 750 MG/150 ML BAG IVPB ONE (12:38)
[2018-03-29] MEDS: 0.9 % Sodium Chloride 1,000 ML IVC SCH ×2 (12:46→13:40)
--- NOTE | 2018-03-29 12:47 | Emergency Department Note ---
Disposition Clinical Impression: COPD exacerbation, Acute and chronic respiratory failure with hypoxia Anemia Qualifiers: Anemia type: unspecified type Qualified Code(s): D64.9 - Anemia, unspecified Lung cancer Qualifiers: Laterality: unspecified laterality Lung location: unspecified part of lung Qualified Code(s): C34.90 - Malignant neoplasm of unspecified part of unspecified bronchus or lung Disposition: Admitted As Inpatient Condition: Fair Time of Disposition: 15:42 General Adult HPI - General Chief complaint: ED Shortness of Breath/Dyspnea Stated complaint: MATT Time Seen by Provider: 03/29/18 12:32 Source: patient, EMS Mode of arrival: EMS Limitations: no limitations Nursing Notes Reviewed: Yes Vital Signs Reviewed: Yes - History of Present Illness HPI Narrative: Patient is a 52-year-old female with a current history of lung cancer in which she is currently undergoing chemotherapy treatments at the [facility]. She is brought in by squad from her home clinic presentation of worsening shortness of breath and productive cough. On exam she has diffuse wheezes in all lungs arvizu. She states that she receives chemotherapy Saturday and Saturday of every week. She states approximately 2 days ago she began having increased shortness of breath and productive cough. States that she has noted feeling warm, however has not checked her temperature. Patient states that she has been undergoing chemotherapy for lung cancer for the past 2 months, she has no port she states they placed an IV and every treatment. Patient states that she is a former smoker having quit 2 months ago. States that she is also on a baseline 2 L nasal cannula oxygen at home due to her COPD. She states that she takes breathing treatments once every 6 hours at home of albuterol. She received 1 treatment of albuterol in the squad she said this improved her symptoms mildly. Pain Scale: 5 - Related Data Home Medications Medication Instructions Recorded Confirmed Albuterol Neb [AccuNeb] 0.63 mg IH Q6H PRN 11/27/17 03/29/18 Albuterol Sulfate [Ventolin Hfa] 2 puff IH QID PRN 11/27/17 03/29/18 Atenolol [Tenormin] 25 mg PO DAILY 11/27/17 03/29/18 Diclofenac Sodium [Voltaren] 1 appl TP QID PRN 11/27/17 03/29/18 Gabapentin [Neurontin] 600 mg PO TID 11/27/17 03/29/18 Ipratropium/Albuterol Sulfate 1 puff IH QID 11/27/17 03/29/18 [Combivent Respimat 20-100 Mcg] Loratadine [Claritin] 10 mg PO DAILY 11/27/17 03/29/18 Montelukast [Singulair] 10 mg PO HS 11/27/17 03/29/18 Omeprazole [PriLOSEC] 20 mg PO DAILY 11/27/17 03/29/18 Oxybutynin [Ditropan] 2.5 mg PO DAILY 11/27/17 03/29/18 Oxygen 2 l NS AD 11/27/17 03/29/18 Spironolactone [Aldactone] 25 mg PO BID 11/27/17 03/29/18 DULoxetine [Cymbalta] 30 mg PO DAILY 11/29/17 03/29/18 Previous Rx's Medication Instructions Recorded Promethazine [Phenergan] 25 mg PO Q6HR PRN #30 tablet 01/23/18 Ondansetron [Zofran] 8 mg PO Q8HR PRN #30 tablet 02/10/18 Nystatin [Nystatin Suspension] 500,000 units PO QID #120 ml 02/20/18 Ipratropium/Albuterol Neb [Duoneb] 3 ml IH [id number] PRN #100 inhsol 02/25/18 Docusate [Colace] 100 mg PO BID PRN capsule 03/07/18 Nicotine Patch [Nicoderm] 14 mg TD DAILY #30 patch.td24 03/07/18 ALPRAZolam [Xanax 0.5 MG Tablet] 0.5 mg PO QID PRN 30 Days #120 03/17/18 tablet OxyCODONE Immed Rel [Roxicodone 5 5 - 10 mg PO Q4H PRN 30 Days #240 03/17/18 MG] tablet Allergies Allergy/AdvReac Type Severity Reaction Status Date / Time budesonide [From Symbicort] AdvReac Chest Pain Verified 03/04/18 07:38 Formoterol [From Symbicort] AdvReac Chest Pain Verified 03/04/18 07:38 All systems ED: reviewed and negative except as stated. Review of Systems: As Per HPI Constitutional: Reports: fever, weakness. Denies: chills ENT ED: Denies: throat pain, congestion, dysphagia Cardiovascular: Reports: dyspnea on exertion. Denies: chest pain, palpitations , orthopnea, edema, syncope Respiratory: Reports: cough, wheezes, sputum production. Denies: hemoptysis Gastrointestinal: Denies: abdominal pain, nausea, vomiting, diarrhea Genitourinary: Denies: urgency, dysuria Musculoskeletal: Denies: back pain, neck pain Integumentary: Denies: rash Neurological: Denies: headache, weakness Past Medical History - Past Medical History Attestation: Yes The following information was validated with the patient. Medical history: Reports: asthma, cancer, COPD, hyperlipidemia, hypertension Surgical history: Reports: appendectomy, , cholecystectomy Psychiatric history: Reports: anxiety, depression - Social History Smoking Status: Former smoker Smokeless Tobacco Status: No Alcohol use: Reports: none Drug use: Reports: none Physical Exam VITAL SIGNS: Patient is tachycardic on exam in the 120s, has tachypnea greater than 20, afebrile, and blood pressure is normotensive, and has increased oxygen requirements of 3L's saturation at 92%. CONSTITUTIONAL: Patient is ill-appearing; A & O 3. She does appear to have increased work of breathing and is in moderate respiratory distress. She related with difficulty from the stretcher to the hospital bed. She is sitting up she is able to speak in full sentences with a breath in between. HEAD: Normocephalic; atraumatic EYES: PERRL, no scleral icterus NOSE: The nose is normal in appearance without rhinorrhea NECK: No JVD or distended neck veins RESP: Patient does have diffuse wheezing moderately throughout all lung arvizu. Patient also has coarse rhonchorous sounds in the upper airway that improved with coughing. CARD: Regular rhythm, without murmurs, rub or gallop ABD: Non-distended; non-tender, soft, without rigidity, rebound or guarding,no pulsatile mass CHEST: No pain with palpation SKIN: Normal for age and race; warm and dry without diaphoresis ; no apparent lesions EXTREMITIES: Pulses are 2 plus and equal times 4 extremities, no peripheral edema or calf muscle pain - General Limitations: no limitations General appearance: alert, in distress Course Course Narrative: On exam patient appears to be in respiratory distress, she has increased oxygen requirements, tachypnea, no fever patient has difficulty in relating from the EMS bed to the hospital bed. Patient will undergo a workup for COPD versus pneumonia versus pulmonary embolism versus cardiac etiology of the shortness of breath. Given her increased sputum production and cough highest of my concerns is COPD versus pneumonia or infectious cause. Given patient's tachycardia and tachypnea suspected infection I am considering her sepsis at this time. She will undergo blood cultures, lab work, EKG, chest x-ray, and CTA to rule out PE. She will be treated with initial normal saline bolus at this time given that her blood pressure is stable. Not being criteria for sepsis shock or severe sepsis at this time. We will continue to monitor patient's response to treatment and initiate IV antibiotics. - Reevaluation(s) Reevaluation #1: Patient is completed her one hour breathing treatments. Oxygen saturation remains at 92% on 3 L, respirations are 18-20, heart rate is improving from the 120s to 110. Her blood pressure remained stable at this time. Her breathing has improved, however given her work of breathing and her continued wheezing considering BiPAP at this time we will reevaluate the patient and 20 minutes. Patient's CBC shows a leukopenia as well as an anemia which does appear to be chronic for this patient. Still waiting on other labs to return for patient to go to CT scan. Time: 13:32 Reevaluation #2: Patient continues to do well on NC oxygen. Will provide additional albuterol round. Discussed the patient's case with her woven label designer Dr. Adams to discuss a blood transfusion. States that he has been following her blood work and she has been anemic which is secondary to the chemoradiation that she is currently undergoing. He does suggest a 1 unit transfusion to see if that helps with her symptoms. The patient was typed and screened she will be given 1 unit of blood. She also be admitted for COPD exacerbation. Time: 14:50 Reevaluation #3: Discussed the patient's case with the hospitalist on-call. Discussed admitting the patient for COPD as well as anemia. Discussed initiating blood transfusion while in the emergency department also discussed continuing treatment for COPD as well as antibiotics. Hospitalist agrees with this plan and he agrees to accept the patient. Time: 16:19 Vital Signs Temperature 98.1 F 03/29/18 12:29 Pulse Rate 126 06/23/18 12:29 Respiratory Rate 20 03/29/18 12:29 Blood Pressure 115/68 03/29/18 12:29 O2 Sat by Pulse Oximetry 92 03/29/18 12:29 Temperature 97.9 F 03/29/18 16:02 Pulse Rate 117 03/29/18 16:30 Respiratory Rate 22 03/29/18 16:30 Blood Pressure 128/83 03/29/18 16:30 O2 Sat by Pulse Oximetry 96 03/29/18 16:30 Oxygen Delivery Oxygen Delivery Nasal Cannula Medical Decision Making - Medical Records Medical records reviewed: Yes I reviewed the patient's medical records. - Lab Data Lab results reviewed: Yes I reviewed the patient's lab results. Result diagrams: 03/29/18 12:49 03/29/18 12:49 Lab Results 03/29/18 03/29/18 03/29/18 Range/Units 12:49 12:49 12:49 WBC 1.4 L (4.3-11.1) K/mcL RBC 2.44 L (3.82-4.97) M/mcL Hgb 7.3 L (11.5-15.4) g/dL Hct 22.1 L (35.3-44.9) % MCV 90.6 (83.0-100.0) fL MCH 29.9 (28.0-33.3) pg MCHC 33.0 (31.6-35.5) g/dL RDW 18.0 H (11.5-14.5) % Plt Count 140 (140-400) K/mcL MPV 9.7 (9.4-12.4) fL Immature Gran % 3.6 (0-4) % Seg Neutrophils % 91.4 % Lymphocytes % 4.3 % Monocytes % 0.7 % Eosinophils % 0.0 % Basophils % 0.0 % Neutrophils # 1.3 L (1.6-8.9) K/mcL Lymphocytes # 0.1 L (0.6-4.6) K/mcL Monocytes # 0.0 (0.0-1.3) K/mcL Eosinophils # 0.0 (0.0-0.6) K/mcL Basophils # 0.0 (0.0-0.2) K/mcL Toxic Granulation Present A (Not Present) Platelet Estimate Normal (Normal) Sodium 133 L (136-145) mEq/L Potassium 3.9 (3.5-5.1) mEq/L Chloride 89 L (98-107) mEq/L Carbon Dioxide 36 H (23-29) mEq/L BUN 17 (6-20) mg/dL Creatinine 0.59 L (0.60-1.20) mg/dL Est GFR ( Amer) > 60 (> 60) Est GFR (Non-Af Amer) > 60 (> 60) BUN/Creatinine Ratio 29 H (6-26) Glucose 119 H (70-105) mg/dL Calculated Osmolality 279 L (280-300) Lactic Acid 0.8 (0.5-2.2) mmol/L Calcium 9.0 (8.6-10.3) mg/dL Phosphorus 4.2 (2.7-4.5) mg/dL Magnesium 1.3 L (1.6-2.6) mg/dL Total Bilirubin 0.7 (0.3-1.0) mg/dL Direct Bilirubin 0.2 (0.0-0.2) mg/dL Indirect Bilirubin 0.5 (0.0-1.2) mg/dL AST 20 (13-39) Units/L ALT 14 (7-52) Units/L Alkaline Phosphatase 75 (34-104) Units/L Troponin I < 0.03 (< 0.04) ng/mL B-Natriuretic Peptide (Less than 100) pg/mL Serum Total Protein 5.9 L (6.4-8.9) g/dL Albumin 3.6 (3.5-5.7) g/dL Globulin 2.3 L (2.4-3.5) g/dL Albumin/Globulin Ratio 1.6 (1.1-2.2) Urine Color (Yellow) Urine Clarity (Clear) Urine pH (5.0-8.0) pH Units Ur Specific [place] (1.010-1.025) Urine Protein (Neg-Trace) mg/dL Urine Glucose (UA) (Normal) mg/dL Urine Ketones (Negative) mg/dL Urine Blood (Negative) Urine Nitrite (Negative) Urine Bilirubin (Negative) Urine Urobilinogen (Normal) mg/dL Ur Leukocyte Esterase (Negative) Urine Microscopic RBC (0-3) per hpf Urine Microscopic WBC (0-3) per hpf Ur Squamous Epith Cells (None-Few) per lpf Urine Bacteria (None-Few) per hpf Hyaline Casts (None-Few) per lpf Ur Culture Indicated? (NO) Blood Type Antibody Screen Crossmatch 03/29/18 03/29/18 03/29/18 Range/Units 12:49 13:30 13:36 WBC (4.3-11.1) K/mcL RBC (3.82-4.97) M/mcL Hgb (11.5-15.4) g/dL Hct (35.3-44.9) % MCV (83.0-100.0) fL MCH (28.0-33.3) pg MCHC (31.6-35.5) g/dL RDW (11.5-14.5) % Plt Count (140-400) K/mcL MPV (9.4-12.4) fL Immature Gran % (0-4) % Seg Neutrophils % % Lymphocytes % % Monocytes % % Eosinophils % % Basophils % % Neutrophils # (1.6-8.9) K/mcL Lymphocytes # (0.6-4.6) K/mcL Monocytes # (0.0-1.3) K/mcL Eosinophils # (0.0-0.6) K/mcL Basophils # (0.0-0.2) K/mcL Toxic Granulation (Not Present) Platelet Estimate (Normal) Sodium (136-145) mEq/L Potassium (3.5-5.1) mEq/L Chloride (98-107) mEq/L Carbon Dioxide (23-29) mEq/L BUN (6-20) mg/dL Creatinine (0.60-1.20) mg/dL Est GFR ( Amer) (> 60) Est GFR (Non-Af Amer) (> 60) BUN/Creatinine Ratio (6-26) Glucose (70-105) mg/dL Calculated Osmolality (280-300) Lactic Acid (0.5-2.2) mmol/L Calcium (8.6-10.3) mg/dL Phosphorus (2.7-4.5) mg/dL Magnesium (1.6-2.6) mg/dL Total Bilirubin (0.3-1.0) mg/dL Direct Bilirubin (0.0-0.2) mg/dL Indirect Bilirubin (0.0-1.2) mg/dL AST (13-39) Units/L ALT (7-52) Units/L Alkaline Phosphatase (34-104) Units/L Troponin I (< 0.04) ng/mL B-Natriuretic Peptide 141 H (Less than 100) pg/mL Serum Total Protein (6.4-8.9) g/dL Albumin (3.5-5.7) g/dL Globulin (2.4-3.5) g/dL Albumin/Globulin Ratio (1.1-2.2) Urine Color Yellow (Yellow) Urine Clarity Clear (Clear) Urine pH 6.5 (5.0-8.0) pH Units Ur Specific [place] 1.018 (1.010-1.025) Urine Protein Trace (Neg-Trace) mg/dL Urine Glucose (UA) Normal (Normal) mg/dL Urine Ketones 40 H (Negative) mg/dL Urine Blood Negative (Negative) Urine Nitrite Negative (Negative) Urine Bilirubin Negative (Negative) Urine Urobilinogen Normal (Normal) mg/dL Ur Leukocyte Esterase Small H (Negative) Urine Microscopic RBC 0-3 (0-3) per hpf Urine Microscopic WBC 3-5 H (0-3) per hpf Ur Squamous Epith Cells Many H (None-Few) per lpf Urine Bacteria None Seen (None-Few) per hpf Hyaline Casts None Seen (None-Few) per lpf Ur Culture Indicated? NO. A (NO) Blood Type A POSITIVE Antibody Screen NEGATIVE Crossmatch See Detail - Radiology Data Radiology results reviewed: Yes I reviewed the patient's radiology results. Chest X-Ray 03/29/18 12:33 IMPRESSION: No acute cardiopulmonary abnormality. Stable chest. Emphysema. D/ / Rima Martinez MD / Rima Martinez MD Interpreting Provider: Rima Martinez MD Chest CTA 03/29/18 12:37 IMPRESSION: 1. No pulmonary embolism. 2. Mucous plugging in the left lower lobe with complete opacification of the right middle lobar bronchus. There is near complete atelectasis of the right middle lobe. 3. Advanced centrilobular emphysema. Stable fibrotic changes. 4. Apparent decrease in the size of a pulmonary nodule in the right lower lobe. Continued imaging follow-up is recommended in 6 months. D/ / Jose Marsh MD / Joes Marsh MD Interpreting Provider: Jose Marsh MD - EKG Data EKG #1 EKG attestation: Yes I reviewed and interpreted this EKG. EKG results narrative: EKG done at 12:30 shows sinus tachycardia at a rate of 122 bpm. Normal axis. NH is shortened at 122, QRS is 77, QT is 272 and QTc is 344 and these are within normal limits. No signs of ST elevation, ST depression or new Q waves present. No signs of ischemia at this time. Critical Care Time Critical Care Time: Yes Total Critical Care Time: 35 Attestation: Critical care time managing patient's shortness of breath is 35 minutes. Attestation Statement - Attestation Attestation: Patient was seen with resident physician. I reviewed the history, physical, assessment and plan, and agree with the findings. I also personally evaluated this patient and had [id number] time with this patient. 52-year-old female currently being treated for lung cancer by [facility]. She presents to the emergency department with worsening shortness of breath for last 2-3 days. She says symptoms have been getting progressively worse with increased cough and sputum production. Also said increased work of breathing. She has felt warm but has not actually checked her temperature. No nausea vomiting or diarrhea. Denies chest pain. Review systems as above remainder negative. Physical exam vital signs patient's tachycardic. Blood pressure stable. ENT is unremarkable. Heart tachycardic regular rhythm. Lungs diffuse wheezing throughout with increased work of breathing, on arrival patient was very much struggling. Abdomen is soft and nontender. Extremities are largely unremarkable. Neurologically alert and oriented. Skin no obvious rashes. Psych normal little bit anxious. ED course we will do full septic and pulmonary workup on the patient. We will give aggressive respiratory therapy's and oxygen therapy as well. The patient will be admitted to the hospitalist service her IV antibiotics and a respiratory care. She improved throughout her stay. CT scan of the chest did not reveal PE, but rather some mucous plugging. Her respiratory status improved with the breathing treatments. We spoke with the hospitalist service agreed to accept the patient for a more definitive management. Chest x-ray did not show pneumonia but with her initial vital signs she was given an initial antibiotic dose to cover her for potential sepsis, meeting the criteria with her vital signs. Critical care time for this case is 35 minutes. Agree with the resident physician assessment and plan.
[2018-03-29 13:04] LABS: Hematocrit 22.1 % (35.3-44.9); Hemoglobin 7.3 g/dL (11.5-15.4); Immature Granulocytes % 3.6 % (0-4); Lymphocytes # 0.1 K/mcL (0.6-4.6); Lymphocytes % 4.3 %; Mean Corpuscular Hemoglobin 29.9 pg (28.0-33.3); Mean Corpuscular Volume 90.6 fL (83.0-100.0); Mean Platelet Volume 9.7 fL (9.4-12.4); Monocytes % 0.7 %; Neutrophils # 1.3 K/mcL (1.6-8.9); Platelet Count 140 K/mcL (140-400); Red Blood Count 2.44 M/mcL (3.82-4.97); Segmented Neutrophils % 91.4 %
[2018-03-29 13:31] LABS: Alanine Aminotransferase 14 Units/L (7-52); Albumin 3.6 g/dL (3.5-5.7); Albumin/Globulin Ratio 1.6 (1.1-2.2); Alkaline Phosphatase 75 Units/L (34-104); Aspartate Amino Transferase 20 Units/L (13-39); BUN/Creatinine Ratio 29 (6-26); Bilirubin,Direct 0.2 mg/dL (0.0-0.2); Bilirubin,Indirect 0.5 mg/dL (0.0-1.2); Bilirubin,Total 0.7 mg/dL (0.3-1.0); Blood Urea Nitrogen 17 mg/dL (6-20); Carbon Dioxide 36 mEq/L (23-29); Chloride 89 mEq/L (98-107); Globulin 2.3 g/dL (2.4-3.5); Glucose 119 mg/dL (70-105); Magnesium 1.3 mg/dL (1.6-2.6); Osmolality,Calculated 279 (280-300); Phosphorous 4.2 mg/dL (2.7-4.5); Potassium 3.9 mEq/L (3.5-5.1); Sodium 133 mEq/L (136-145); Total Protein 5.9 g/dL (6.4-8.9); Troponin I < 0.03 ng/mL (< 0.04); eGFR For African Americans > 60 (> 60); eGFR For Non-African Americans > 60 (> 60)
[2018-03-29 13:40] LABS: Platelet Estimate Normal (Normal); Toxic Granulation Present (Not Present)
[2018-03-29 13:45] LABS: Bilirubin,Urine Negative (Negative); Blood,Urine Negative (Negative); Clarity,Urine Clear (Clear); Color,Urine Yellow (Yellow); Glucose,Urine (UA) Normal (Normal); Ketones,Urine 40 mg/dL (Negative); Leukocyte Esterase,Urine Small (Negative); Nitrite,Urine Negative (Negative); PH,Urine 6.5 pH Units (5.0-8.0); Protein,Urine Trace mg/dL (Neg-Trace); Specific Gravity,Urine 1.018 (1.010-1.025); Urobilinogen,Urine Normal (Normal)
[2018-03-29 13:48] LABS: Bacteria,Urine None Seen per hpf (None-Few); Hyaline Casts,Urine None Seen per lpf (None-Few); RBC,Urine 0-3 per hpf (0-3); Squamous Epithelial Cell,Urine Many per lpf (None-Few)
[2018-03-29] MEDS ORDERED: Albuterol 2.5 MG/3 ML NEBULIZER IH ONE (14:27)
--- NOTE | 2018-03-29 17:49 | Internal Med History&Physical ---
Date of Encounter: 03/29/18 Time of Encounter: 17:36 Internal Medicine - H&P: HPI Admitted From: Emergency Dept Plans for Post Hospital Care: Home History of present illness: Current is a 52 year old female hyponatremia, lung cancer, chronic respiratory failure, small cell carcinoma, SIADH, COPD (emphysema), protein calorie malnutrition, tobacco abuse, and hypoxia. Pt is currently undergoing chemo at [facility]. Pt reports that she has been short of breath more than usual. SHe is on 2L NC of oxygen at home. She also reports subjective fevers and chills. Coughs on occasion but rare sputum. She denies chest pain. She also complains of pain in her legs. In ED WBC 1.4, hgb 7.3, hct 22.1, plt 140. Na 133, K 3.9, HCO3 36, BUN 17, Cr 0.59. BNP 141. Urine analysis leuks small, squamous epithelial cells, WBC 3-5 Chest x ray IMPRESSION: No acute cardiopulmonary abnormality. Stable chest. Emphysema. Past Med Surg Social Fam HX - Past Medical History Medical history: asthma, cancer, COPD, hyperlipidemia, hypertension Additional medical history: lung CA Psychiatric history: anxiety, depression - Past Surgical History Surgical History: appendectomy, , cholecystectomy Additional surgical history: x3 - Social History Smoking Status: Former smoker Smokeless Tobacco Status: No Alcohol use: none Drug use: none - Family History Mother Living Status: Hx Family Cardiac Disorders: No Hx Family Respiratory Disorders: Yes (COPD) Hx Family Cancer: No Hx Family GI Disorders: Yes (hernia) Hx Family Endocrine Disorder: Yes (thyriod) Hx Family Neuromuscular Disorders: No Hx Family Neurologic Disorders: No Hx Family HEENT Disorders: No Hx Family Autoimmune Disorders: No Father Living Status: Hx Family Cardiac Disorders: Yes Hx Family Respiratory Disorders: Yes (COPD) Hx Family Cancer: Yes (colon cancer) Hx Family GI Disorders: No Hx Family Endocrine Disorder: No Hx Family Neuromuscular Disorders: No Hx Family Neurologic Disorders: No Hx Family HEENT Disorders: No Hx Family Autoimmune Disorders: No Internal Medicine - H&P: Meds Albuterol Neb [AccuNeb] 0.63 mg IH Q6H PRN 11/27/17 [History] Albuterol Sulfate [Ventolin Hfa] 2 puff IH QID PRN 11/27/17 [History] Atenolol [Tenormin] 25 mg PO DAILY 11/27/17 [History] Diclofenac Sodium [Voltaren] 1 appl TP QID PRN 11/27/17 [History] Gabapentin [Neurontin] 600 mg PO TID 11/27/17 [History] Ipratropium/Albuterol Sulfate [Combivent Respimat 20-100 Mcg] 1 puff IH QID [History] Loratadine [Claritin] 10 mg PO DAILY 11/27/17 [History] Montelukast [Singulair] 10 mg PO HS 11/27/17 [History] Omeprazole [PriLOSEC] 20 mg PO DAILY 11/27/17 [History] Oxybutynin [Ditropan] 2.5 mg PO DAILY 11/27/17 [History] Oxygen 2 l NS AD 11/27/17 [History] Spironolactone [Aldactone] 25 mg PO BID 11/27/17 [History] DULoxetine [Cymbalta] 30 mg PO DAILY 11/29/17 [History] Promethazine [Phenergan] 25 mg PO Q6HR PRN #30 tablet 01/23/18 [Rx] Ondansetron [Zofran] 8 mg PO Q8HR PRN #30 tablet 02/10/18 [Rx] Nystatin [Nystatin Suspension] 500,000 units PO QID #120 ml 02/20/18 [Rx] Ipratropium/Albuterol Neb [Duoneb] 3 ml IH [id number] PRN #100 inhsol 02/25/18 [Rx] Docusate [Colace] 100 mg PO BID PRN capsule 03/07/18 [Rx] Nicotine Patch [Nicoderm] 14 mg TD DAILY #30 patch.td24 03/07/18 [Rx] ALPRAZolam [Xanax 0.5 MG Tablet] 0.5 mg PO QID PRN 30 Days #120 tablet 03/17/18 [Rx] OxyCODONE Immed Rel [Roxicodone 5 MG] 5 - 10 mg PO Q4H PRN 30 Days #240 tablet 03/17/18 [Rx] 3 Allergy/AdvReac Type Severity Reaction Status Date / Time budesonide [From Symbicort] AdvReac Chest Pain Verified 03/04/18 07:38 Formoterol [From Symbicort] AdvReac Chest Pain Verified 03/04/18 07:38 All Systems PM: A 10-system review of systems was performed and is negative for pertinent findings except as documented above in the HPI. - Constitutional Vitals: Temp Pulse Resp BP Pulse Ox 97.9 F 107 20 131/71 98 03/29/18 17:31 03/29/18 17:31 03/29/18 17:31 03/29/18 17:31 03/29/18 17:31 General appearance: Present: mild distress, A&O X 3 - Head Head exam: Present: atraumatic, normocephalic Additional comments: Alopecia related to chemo - Eye Eye exam: Present: PERRL, conjuntiva pink, sclera anicteric Pupils: Present: PERRL - Neck Neck exam general surgery: Present: supple, trachea midline. Absent: lymphadenopathy - Respiratory Respiratory exam: Present: wheezes. Absent: accessory muscle use, rales, rhonchi Additional comments: B/L expiratory wheezes on exam. - Cardiovascular Cardiovascular exam: Present: RRR, +S1, +S2. Absent: diastolic murmur, gallop, rubs, systolic murmur - GI/Abdominal GI/Abdominal exam: Present: normal bowel sounds, soft, no peritoneal signs. Absent: distended, tenderness - Extremities Exam Extremities exam: Present: warm, radial pulses palpable and symmetrical. Absent : calf tenderness, cyanotic, pedal edema - Neurological Exam Neurological exam: Present: CN II-XII intact, oriented X3, no focal deficits. Absent: pronater drift, facial droop, speech deficit - Skin Skin exam: Present: dry, intact Internal Med - H&P Results - Labs CBC & Chem 7: 03/29/18 12:49 03/29/18 12:49 - Assessment and plan (1) Dyspnea Current Visit: No Status: Acute Assessment and plan: Pt requiring more oxygen than her baseline. Will continue oxygen supplement. Give Duonebs brenda and prn. steroid taper. Will reassess following blood transfusion. Qualifiers: Dyspnea type: dyspnea on exertion Qualified Code(s): R06.09 - Other forms of dyspnea (2) Protein-calorie malnutrition, mild Current Visit: No Status: Chronic Assessment and plan: secondary o hx of small cell carcinoma. May give boost supplment as needed. (3) Anemia Current Visit: Yes Status: Acute Assessment and plan: Given one unit RBC, will give another unit of PRBC and monitor CBC. Qualifiers: Anemia type: unspecified type Qualified Code(s): D64.9 - Anemia, unspecified (4) Small cell carcinoma Current Visit: No Status: Chronic Assessment and plan: Pt is undergoing chemo at [facility]. Follow up out pt as brenda. (5) Acute exacerbation of chronic obstructive airways disease Current Visit: No Status: Acute Assessment and plan: Duoneb brenda and prn nebs. Oxygen prn. Steroid taper. Given one time antibiotic therapy in ED for possible HCAP but imaging ngative for infiltrate, infection, or opacity. Will monitor for now. (6) Leukopenia due to antineoplastic chemotherapy Current Visit: Yes Status: Acute Assessment and plan: Will monitor CBC - Time Spent With Patient Total time spent is greater than 50% in coordination of care (as documented) at patient's floor/unit and/or counseling patient: 25 - 35 minutes
[2018-03-29] MEDS ORDERED: (Diclofenac Sodium [Voltaren] 1 APPL) TP PRN (18:47)
[2018-03-29] MEDS ORDERED: Albuterol Neb 0.63 MG/3 ML VIAL IH PRN (18:47)
[2018-03-29] MEDS ORDERED: Naloxone 0.4 MG/ML INJ IVP PRN (18:52)
[2018-03-29] MEDS ORDERED: Acetaminophen 325 MG TABLET PO PRN (18:52)
[2018-03-29] MEDS: *HR* OxyCODONE Immed Rel 5 MG TABLET PO PRN (20:13)
[2018-03-29] MEDS: ALPRAZolam 0.5 MG TABLET PO PRN (20:14)
[2018-03-29] MEDS: Spironolactone 25 MG TABLET PO SCH (20:14)
[2018-03-29] MEDS: Gabapentin 300 MG CAPSULE PO SCH (20:14)
[2018-03-29] MEDS: Nystatin SUSP 5 ML UD.LIQ PO SCH (20:14)
[2018-03-29] MEDS: Ipratropium/Albuterol Neb 3 ML IH SCH (22:06)
[2018-03-29] MEDS: MethylPREDNISolone 40 MG/ML VIAL IVP SCH (23:00)
[2018-03-30] MEDS: Ipratropium/Albuterol Neb 3 ML IH SCH ×5 (03:20→23:54)
[2018-03-30] MEDS: ALPRAZolam 0.5 MG TABLET PO PRN ×2 (04:10→20:16)
[2018-03-30] MEDS: *HR* OxyCODONE Immed Rel 5 MG TABLET PO PRN ×4 (04:10→20:16)
[2018-03-30 04:43] LABS: Mean Platelet Volume 9.5 fL (9.4-12.4); Monocytes % 0.9 %
[2018-03-30 04:45] LABS: Eosinophils % 0.9 %; Hematocrit 20.7 % (35.3-44.9); Hemoglobin 6.8 g/dL (11.5-15.4); Immature Granulocytes % 11.6 % (0-4); Lymphocytes % 3.6 %; Mean Corpuscular HGB Conc 32.9 g/dL (31.6-35.5); Mean Corpuscular Hemoglobin 28.9 pg (28.0-33.3); Mean Corpuscular Volume 88.1 fL (83.0-100.0); Neutrophils # 0.9 K/mcL (1.6-8.9); Platelet Count 117 K/mcL (140-400); Red Blood Count 2.35 M/mcL (3.82-4.97); Red Cell Distribution Width 16.9 % (11.5-14.5)
[2018-03-30 05:01] LABS: BUN/Creatinine Ratio 21 (6-26); Blood Urea Nitrogen 12 mg/dL (6-20); Calcium 8.5 mg/dL (8.6-10.3); Carbon Dioxide 33 mEq/L (23-29); Chloride 95 mEq/L (98-107); Glucose 181 mg/dL (70-105); Osmolality,Calculated 282 (280-300); Potassium 3.9 mEq/L (3.5-5.1); Sodium 134 mEq/L (136-145); eGFR For African Americans > 60 (> 60); eGFR For Non-African Americans > 60 (> 60)
[2018-03-30 05:07] LABS: Anisocytosis 2+ (Not Present); Platelet Estimate Normal (Normal); Poikilocytosis 2+ (Not Present); Polychromasia 1+ (Not Present)
[2018-03-30] MEDS: MethylPREDNISolone 40 MG/ML VIAL IVP SCH ×3 (06:15→16:01)
[2018-03-30 08:50] LABS: Immature Reticulocyte % 2.1 % (11.0-38.0); Retculocyte # 0.03 M/mcL (0.05-0.10); Reticulocyte % 1.3 % (1.6-2.8)
--- NOTE | 2018-03-30 08:54 | Internal Med Progress Note ---
Date of Encounter: 03/30/18 Time of Encounter: 09:00 - Assessment and plan (1) Acute and chronic respiratory failure with hypoxia Current Visit: Yes Status: Acute Assessment and plan: Seconadary to COPD exacerbation. Continue nebs, steroids and antibiotics (2) Anemia Current Visit: Yes Status: Acute Assessment and plan: R/o GI bleed vs bone marrow suppression from malignancy. Obtain retic count, stool FOBT. Patient was transfused 1 unit of PRBC overnight. Hemoglobin 6.8 this am from 7.2. Repeat CBC and Transfuse 2 units PRBC if <7. GI consulted for endoscopy but patient declined EGD/colonoscopy. Will feed and inform GI Qualifiers: Anemia type: unspecified type Qualified Code(s): D64.9 - Anemia, unspecified (3) Acute exacerbation of chronic obstructive airways disease Current Visit: No Status: Acute Assessment and plan: Nebs, steroids and antibiotics (4) Leukopenia due to antineoplastic chemotherapy Current Visit: Yes Status: Acute Assessment and plan: Continue to monitor CBC. Outpatient follow up (5) Small cell carcinoma Current Visit: No Status: Chronic Assessment and plan: Continue chemotherapy and outpatient follow up (6) DVT prophylaxis Current Visit: No Status: Acute Assessment and plan: scdS - Time Spent With Patient Total time spent is greater than 50% in coordination of care (as documented) at patient's floor/unit and/or counseling patient: - Subjective Interval history: No acute events overnight - Constitutional Vitals: Temp Pulse Resp BP Pulse Ox 97.8 F 109 18 122/76 96 03/30/18 07:51 03/30/18 07:51 03/30/18 07:51 03/30/18 07:51 03/30/18 07:51 General appearance: Present: mild distress, A&O X 3 - Head Head exam: Present: atraumatic, normocephalic - Eye Eye exam: Present: PERRL, conjuntiva pink, sclera anicteric Pupils: Present: PERRL - Neck Neck exam general surgery: Present: supple, trachea midline. Absent: lymphadenopathy - Respiratory Respiratory exam: Present: CTAB. Absent: accessory muscle use, rales, rhonchi, wheezes - Cardiovascular Cardiovascular exam: Present: RRR, +S1, +S2. Absent: diastolic murmur, gallop, rubs, systolic murmur - GI/Abdominal GI/Abdominal exam: Present: normal bowel sounds, soft, no peritoneal signs. Absent: distended, tenderness - Extremities Exam Extremities exam: Present: warm, radial pulses palpable and symmetrical. Absent : calf tenderness, cyanotic, pedal edema - Neurological Exam Neurological exam: Present: CN II-XII intact, oriented X3, no focal deficits. Absent: pronater drift, facial droop, speech deficit - Skin Skin exam: Present: dry, intact Internal Medicine: Result - Labs CBC & Chem 7: 03/30/18 10:01 03/30/18 04:14 Labs: Short CBC 03/30/18 Range/Units 04:14 WBC 1.1 L (4.3-11.1) K/mcL Hgb 6.8 L (11.5-15.4) g/dL Hct 20.7 L (35.3-44.9) % Plt Count 117 L (140-400) K/mcL Neutrophils # 0.9 L (1.6-8.9) K/mcL BMP 03/30/18 04:14 Sodium 134 L Potassium 3.9 Chloride 95 L Carbon Dioxide 33 H BUN 12 Creatinine 0.56 L Glucose 181 H Calcium 8.5 L - VTE Documentation of Mechanical Device: Graduated compression elastic hosiery Consult Discharge Plan - Plan Referrals: Jhonny Perdomo MD [Primary Care Provider] -
[2018-03-30] MEDS: Gabapentin 300 MG CAPSULE PO SCH ×3 (09:37→20:17)
[2018-03-30] MEDS: Nystatin SUSP 5 ML UD.LIQ PO SCH ×4 (09:38→20:16)
[2018-03-30] MEDS: Levofloxacin 500 MG/100 ML 500 MG/100 ML BAG IVPB SCH (09:38)
[2018-03-30] MEDS: Spironolactone 25 MG TABLET PO SCH ×2 (09:38→20:16)
[2018-03-30] MEDS: Loratadine 10 MG TABLET PO SCH (09:38)
[2018-03-30] MEDS: Nicotine 14 MG PATCH.TD24 TD SCH (09:39)
[2018-03-30 10:25] LABS: Basophils % 1.3 %; Hematocrit 21.3 % (35.3-44.9); Hemoglobin 7.1 g/dL (11.5-15.4); Immature Granulocytes % 10.2 % (0-4); Lymphocytes # 0.1 K/mcL (0.6-4.6); Lymphocytes % 5.1 %; Mean Corpuscular HGB Conc 33.3 g/dL (31.6-35.5); Mean Corpuscular Hemoglobin 29.1 pg (28.0-33.3); Mean Corpuscular Volume 87.3 fL (83.0-100.0); Mean Platelet Volume 10.1 fL (9.4-12.4); Monocytes % 1.9 %; Neutrophils # 1.3 K/mcL (1.6-8.9); Platelet Count 102 K/mcL (140-400); Red Blood Count 2.44 M/mcL (3.82-4.97); Red Cell Distribution Width 16.7 % (11.5-14.5); Segmented Neutrophils % 81.5 %
[2018-03-30 10:55] LABS: Anisocytosis 2+ (Not Present); Platelet Estimate Decreased (Normal)
[2018-03-30] MEDS ORDERED: 0.9 % Sodium Chloride 250 ML ONE (14:52)
[2018-03-30 19:34] LABS: Hematocrit 27.1 % (35.3-44.9); Lymphocytes # 0.1 K/mcL (0.6-4.6); Mean Corpuscular HGB Conc 32.8 g/dL (31.6-35.5); Mean Corpuscular Volume 91.2 fL (83.0-100.0); Platelet Count 115 K/mcL (140-400); Red Blood Count 2.97 M/mcL (3.82-4.97); Red Cell Distribution Width 16.1 % (11.5-14.5)
[2018-03-30 19:35] LABS: Hemoglobin 8.9 g/dL (11.5-15.4)
[2018-03-30 20:00] LABS: Neutrophils # 3.2 K/mcL (1.6-8.9)
[2018-03-30 20:01] LABS: Anisocytosis 2+ (Not Present); Macrocytosis Present (Not Present); Platelet Estimate Slight Decrease (Normal); Toxic Granulation Present (Not Present)
[2018-03-31] MEDS: MethylPREDNISolone 40 MG/ML VIAL IVP SCH ×4 (00:41→20:11)
[2018-03-31] MEDS: Ipratropium/Albuterol Neb 3 ML IH SCH ×6 (03:39→23:53)
[2018-03-31 04:07] LABS: Hemoglobin 7.8 g/dL (11.5-15.4)
[2018-03-31 04:09] LABS: Hematocrit 23.8 % (35.3-44.9); Immature Platelets 2.4 % (1.1-6.1); Mean Corpuscular HGB Conc 32.8 g/dL (31.6-35.5); Mean Corpuscular Hemoglobin 29.3 pg (28.0-33.3); Mean Corpuscular Volume 89.5 fL (83.0-100.0); Mean Platelet Volume 9.4 fL (9.4-12.4); Platelet Count 112 K/mcL (140-400); Red Blood Count 2.66 M/mcL (3.82-4.97); Red Cell Distribution Width 16.1 % (11.5-14.5)
[2018-03-31 04:31] LABS: BUN/Creatinine Ratio 22 (6-26); Blood Urea Nitrogen 12 mg/dL (6-20); Calcium 8.5 mg/dL (8.6-10.3); Carbon Dioxide 34 mEq/L (23-29); Chloride 95 mEq/L (98-107); Glucose 227 mg/dL (70-105); Osmolality,Calculated 283 (280-300); Potassium 3.9 mEq/L (3.5-5.1); Sodium 133 mEq/L (136-145); eGFR For African Americans > 60 (> 60); eGFR For Non-African Americans > 60 (> 60)
[2018-03-31 04:36] LABS: Anisocytosis 2+ (Not Present); Macrocytosis Present (Not Present); Neutrophils # 2.1 K/mcL (1.6-8.9); Platelet Estimate Slight Decrease (Normal)
[2018-03-31 04:37] LABS: Toxic Granulation Present (Not Present)
[2018-03-31] MEDS: *HR* OxyCODONE Immed Rel 5 MG TABLET PO PRN ×4 (05:29→20:14)
--- NOTE | 2018-03-31 07:03 | Electrocardiograph Report ---
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
[2018-03-31] MEDS: Loratadine 10 MG TABLET PO SCH (07:49)
[2018-03-31] MEDS: Spironolactone 25 MG TABLET PO SCH ×2 (07:49→20:14)
[2018-03-31] MEDS: Gabapentin 300 MG CAPSULE PO SCH ×3 (07:49→20:14)
[2018-03-31] MEDS: Levofloxacin 500 MG/100 ML 500 MG/100 ML BAG IVPB SCH (07:50)
[2018-03-31] MEDS: Nicotine 14 MG PATCH.TD24 TD SCH (07:50)
[2018-03-31] MEDS: Nystatin SUSP 5 ML UD.LIQ PO SCH ×4 (07:50→18:33)
[2018-03-31] MEDS: Ondansetron ODT 4 MG TAB.RAPDIS PO PRN ×2 (08:01→15:38)
--- NOTE | 2018-03-31 08:21 | Internal Med Progress Note ---
Date of Encounter: 03/31/18 Time of Encounter: 08:20 - Assessment and plan (1) Acute and chronic respiratory failure with hypoxia Current Visit: Yes Status: Acute Assessment and plan: Seconadary to COPD exacerbation. Continue nebs, steroids and antibiotics (2) Anemia Current Visit: Yes Status: Acute Assessment and plan: R/o GI bleed vs bone marrow suppression from malignancy. Obtain retic count, stool FOBT. Patient has been transfused a total of 2units. Hemoglobin 7.8 this am. GI consulted for endoscopy but patient declined EGD/colonoscopy. Will feed and inform GI Qualifiers: Anemia type: unspecified type Qualified Code(s): D64.9 - Anemia, unspecified (3) Acute exacerbation of chronic obstructive airways disease Current Visit: No Status: Acute Assessment and plan: Nebs, steroids and antibiotics (4) Leukopenia due to antineoplastic chemotherapy Current Visit: Yes Status: Acute Assessment and plan: Continue to monitor CBC. Outpatient follow up (5) Small cell carcinoma Current Visit: No Status: Chronic Assessment and plan: Continue chemotherapy and outpatient follow up (6) DVT prophylaxis Current Visit: No Status: Acute Assessment and plan: scdS - Time Spent With Patient Total time spent is greater than 50% in coordination of care (as documented) at patient's floor/unit and/or counseling patient: - Subjective Interval history: No acute events overnight - Constitutional Vitals: Temp Pulse Resp BP Pulse Ox 97.4 F L 100 16 123/75 96 03/31/18 06:48 03/31/18 06:48 03/31/18 07:14 03/31/18 06:48 03/31/18 07:14 General appearance: Present: mild distress, A&O X 3 - Head Head exam: Present: atraumatic, normocephalic - Eye Eye exam: Present: PERRL, conjuntiva pink, sclera anicteric Pupils: Present: PERRL - Neck Neck exam general surgery: Present: supple, trachea midline. Absent: lymphadenopathy - Respiratory Respiratory exam: Present: CTAB. Absent: accessory muscle use, rales, rhonchi, wheezes - Cardiovascular Cardiovascular exam: Present: RRR, +S1, +S2. Absent: diastolic murmur, gallop, rubs, systolic murmur - GI/Abdominal GI/Abdominal exam: Present: normal bowel sounds, soft, no peritoneal signs. Absent: distended, tenderness - Extremities Exam Extremities exam: Present: warm, radial pulses palpable and symmetrical. Absent : calf tenderness, cyanotic, pedal edema - Neurological Exam Neurological exam: Present: CN II-XII intact, oriented X3, no focal deficits. Absent: pronater drift, facial droop, speech deficit - Skin Skin exam: Present: dry, intact Internal Medicine: Result - Labs CBC & Chem 7: 03/31/18 03:37 03/31/18 03:37 Labs: Short CBC 03/30/18 03/30/18 03/30/18 Range/Units 04:14 10:01 19:22 WBC 1.1 L 1.6 L 3.3 L D (4.3-11.1) K/mcL Hgb 6.8 L 7.1 L 8.9 L D (11.5-15.4) g/dL Hct 20.7 L 21.3 L 27.1 L (35.3-44.9) % Plt Count 117 L 102 L 115 L (140-400) K/mcL Neutrophils # 0.9 L 1.3 L 3.2 (1.6-8.9) K/mcL 03/31/18 Range/Units 03:37 WBC 2.1 L (4.3-11.1) K/mcL Hgb 7.8 L (11.5-15.4) g/dL Hct 23.8 L (35.3-44.9) % Plt Count 112 L (140-400) K/mcL Neutrophils # 2.1 (1.6-8.9) K/mcL BMP 03/31/18 03:37 Sodium 133 L Potassium 3.9 Chloride 95 L Carbon Dioxide 34 H BUN 12 Creatinine 0.54 L Glucose 227 H Calcium 8.5 L - VTE Documentation of Mechanical Device: Graduated compression elastic hosiery Consult Discharge Plan - Plan Referrals: Jhonny Perdomo MD [Primary Care Provider] -
[2018-04-01] MEDS: ALPRAZolam 0.5 MG TABLET PO PRN (00:24)
[2018-04-01] MEDS: *HR* OxyCODONE Immed Rel 5 MG TABLET PO PRN ×3 (00:24→11:23)
[2018-04-01] MEDS: Ondansetron ODT 4 MG TAB.RAPDIS PO PRN (00:25)
[2018-04-01] MEDS: Nystatin SUSP 5 ML UD.LIQ PO SCH ×2 (01:21→08:52)
[2018-04-01] MEDS: MethylPREDNISolone 40 MG/ML VIAL IVP SCH ×2 (01:29→07:04)
[2018-04-01] MEDS: Ipratropium/Albuterol Neb 3 ML IH SCH ×3 (03:45→11:18)
[2018-04-01 04:27] LABS: Mean Platelet Volume 9.4 fL (9.4-12.4)
[2018-04-01 04:29] LABS: Hematocrit 24.2 % (35.3-44.9); Hemoglobin 7.8 g/dL (11.5-15.4); Mean Corpuscular HGB Conc 32.2 g/dL (31.6-35.5); Mean Corpuscular Hemoglobin 29.2 pg (28.0-33.3); Mean Corpuscular Volume 90.6 fL (83.0-100.0); Red Blood Count 2.67 M/mcL (3.82-4.97); Red Cell Distribution Width 16.3 % (11.5-14.5)
[2018-04-01 04:32] LABS: Platelet Count 78 K/mcL (140-400)
[2018-04-01 04:51] LABS: BUN/Creatinine Ratio 24 (6-26); Blood Urea Nitrogen 13 mg/dL (6-20); Calcium 8.3 mg/dL (8.6-10.3); Carbon Dioxide 38 mEq/L (23-29); Chloride 93 mEq/L (98-107); Glucose 231 mg/dL (70-105); Osmolality,Calculated 287 (280-300); Sodium 135 mEq/L (136-145); eGFR For African Americans > 60 (> 60); eGFR For Non-African Americans > 60 (> 60)
[2018-04-01 04:52] LABS: Anisocytosis 1+ (Not Present); Hypochromasia Present (Not Present); Macrocytosis Present (Not Present); Platelet Estimate Decreased (Normal)
[2018-04-01 07:07] VITALS: BP 116/73
[2018-04-01] MEDS: Loratadine 10 MG TABLET PO SCH (08:52)
[2018-04-01] MEDS: Levofloxacin 500 MG/100 ML 500 MG/100 ML BAG IVPB SCH (08:52)
[2018-04-01] MEDS: Gabapentin 300 MG CAPSULE PO SCH (08:52)
[2018-04-01] MEDS: Spironolactone 25 MG TABLET PO SCH (08:53)
[2018-04-01] MEDS: Nicotine 14 MG PATCH.TD24 TD SCH (08:53)
[2018-04-01] MEDS ORDERED: levoFLOXacin 500 MG TABLET PO SCH (10:00)
--- NOTE | 2018-04-01 10:05 | Discharge Summary ---
<Alcides Baxter - Last Filed: 04/01/18 10:01> - NOTES TO OUTPATIENT PROVIDER Notes to Outpatient Provider: Make sure patient follows up with her oncology team and follows her blood counts Orders not resulted at time of discharge: Pending orders 03/30/18 08:36 Occult Blood,Stool [BF] Routine 04/02/18 04:00 Basic Metabolic Panel AM 0400 CBC [Complete Blood Count] [HEME] AM 0400 04/03/18 04:00 Basic Metabolic Panel AM 0400 CBC [Complete Blood Count] [HEME] AM 0400 04/04/18 04:00 Basic Metabolic Panel AM 0400 CBC [Complete Blood Count] [HEME] AM 0400 04/05/18 04:00 Basic Metabolic Panel AM 0400 CBC [Complete Blood Count] [HEME] AM 0400 Date of Encounter: 04/01/18 Time of Encounter: 10:02 - Discharge Diagnosis (1) Acute exacerbation of chronic obstructive airways disease Priority: Primary Status: Acute (2) Acute and chronic respiratory failure with hypoxia Priority: Primary Status: Acute (3) Small cell carcinoma Priority: Secondary Status: Chronic (4) Anemia Priority: Secondary Status: Chronic Qualifiers: Anemia type: unspecified type Qualified Code(s): D64.9 - Anemia, unspecified (5) Leukopenia due to antineoplastic chemotherapy Priority: Secondary Status: Chronic Hospital course: Ms. Marie is a 52 year old female with history of small cell lung cancer, pancytopenia, COPD presented with shortness of breath, wheezing, increased sputum production. Patient underwent CTA to rule out PE as well as lower extremity Dopplers which were negative for DVT/PE. She was treated for COPD exacerbation with IV antibiotics, steroids, and breathing treatments. Patient improved and has returned to her home oxygen dose. She states she feels much better today and she is ready to go home. Patient was noted to be pancytopenic which is chronic for her due to her ongoing chemotherapy treatments. She will follow-up with her oncologist this week. Patient will be discharged home in stable condition. Discharge discussed with: patient, nurse - Time Spent with Patient Total time spent providing and/or coordinating discharge services: - Discharge Medications Prescriptions: levoFLOXacin [Levaquin] 500 mg PO DAILY #3 tablet predniSONE [PredniSONE] 40 mg PO DAILY 2 Days #4 tablet Home Medications: Albuterol Neb [AccuNeb] 0.63 mg IH Q6H PRN 11/27/17 [History] Albuterol Sulfate [Ventolin Hfa] 2 puff IH QID PRN 11/27/17 [History] Atenolol [Tenormin] 25 mg PO DAILY 11/27/17 [History] Diclofenac Sodium [Voltaren] 1 appl TP QID PRN 11/27/17 [History] Gabapentin [Neurontin] 600 mg PO TID 11/27/17 [History] Ipratropium/Albuterol Sulfate [Combivent Respimat 20-100 Mcg] 1 puff IH QID [History] Loratadine [Claritin] 10 mg PO DAILY 11/27/17 [History] Montelukast [Singulair] 10 mg PO HS 11/27/17 [History] Omeprazole [PriLOSEC] 20 mg PO DAILY 11/27/17 [History] Oxybutynin [Ditropan] 2.5 mg PO DAILY 11/27/17 [History] Oxygen 2 l NS AD 11/27/17 [History] Spironolactone [Aldactone] 25 mg PO BID 11/27/17 [History] DULoxetine [Cymbalta] 30 mg PO DAILY 11/29/17 [History] Promethazine [Phenergan] 25 mg PO Q6HR PRN #30 tablet 01/23/18 [Rx] Ondansetron [Zofran] 8 mg PO Q8HR PRN #30 tablet 02/10/18 [Rx] Nystatin [Nystatin Suspension] 500,000 units PO QID #120 ml 02/20/18 [Rx] Ipratropium/Albuterol Neb [Duoneb] 3 ml IH [id number] PRN #100 inhsol 02/25/18 [Rx] Docusate [Colace] 100 mg PO BID PRN capsule 03/07/18 [Rx] Nicotine Patch [Nicoderm] 14 mg TD DAILY #30 patch.[id number] 03/07/18 [Rx] ALPRAZolam [Xanax 0.5 MG Tablet] 0.5 mg PO QID PRN 30 Days #120 tablet 03/17/18 [Rx] OxyCODONE Immed Rel [Roxicodone 5 MG] 5 - 10 mg PO Q4H PRN 30 Days #240 tablet 03/17/18 [Rx] levoFLOXacin [Levaquin] 500 mg PO DAILY #3 tablet 04/01/18 [Rx] predniSONE [PredniSONE] 40 mg PO DAILY 2 Days #4 tablet 04/01/18 [Rx] Allergies/Adverse Reactions: 3 Allergy/AdvReac Type Severity Reaction Status Date / Time budesonide [From Symbicort] AdvReac Chest Pain Verified 03/04/18 07:38 Formoterol [From Symbicort] AdvReac Chest Pain Verified 03/04/18 07:38 Date of admission: 03/29/18 16:26 Primary care physician: Jhonny Perdomo MD Consults: 03/29/18 19:14 Consult to Nurse Navigator [CONS] Routine Comment: 03/30/18 08:44 Consult to Gastroenterology [CONS] Routine Consulting Provider: Gastroenterology Cheryl Reason for Consult: anemia r/o GI bleed Call Completed: Yes Discharging clinician: Alcides Baxter Anticipated date of discharge: 04/01/18 - Constitutional Vitals: Temp Pulse Resp BP Pulse Ox 98.1 F 102 16 116/73 92 04/01/18 07:04 04/01/18 07:04 04/01/18 07:25 04/01/18 07:04 04/01/18 07:25 General appearance: Present: A&O X 3, no acute distress - Respiratory Respiratory exam: Present: wheezes (mild, diffuse). Absent: CTAB, rales, rhonchi - Cardiovascular Cardiovascular exam: Present: RRR. Absent: gallop, rubs, systolic murmur - GI/Abdominal GI/Abdominal exam: Present: soft. Absent: distended, tenderness - Neurological Exam Neurological exam: Present: alert, CN II-XII intact, oriented X3, no focal deficits - Patient Status Disposition: Home, Self-Care Condition: Fair Functional capacity at discharge: independent ambulation Overall status at discharge: patient is progressing back to baseline - Discharge Instructions Instructions: Prednisone (By mouth), Levofloxacin (By mouth), Acute Respiratory Distress Syndrome (DC), Chronic Obstructive Pulmonary Disease (DC), Anemia (GEN) Follow Up With: Jhonny Perdomo MD [Primary Care Provider] - 04/07/18 10:00 am () Wilian Armstrong Jr, [employer]FORM [employer] SUPERVISOR [Advanced Practice Nurse] - 04/07/18 8:45 am Additional Instructions: Please follow-up with your primary care physician within one week. Please follow-up with your cancer doctors as scheduled. Please take your antibiotic and steroid until completed. Please resume your home medications. Please return for new or worsening symptoms. - Diet and Activity Activity: increase activity as tolerated, wear oxygen at all times Diet: advance to your usual diet - VTE Documentation of Mechanical Device: Graduated compression elastic hosiery <Chalo Ceja - Last Filed: 04/01/18 14:43> Orders not resulted at time of discharge: Pending orders 03/30/18 08:36 Occult Blood,Stool [BF] Routine Date of Encounter: 04/01/18 - Discharge Diagnosis (1) Acute exacerbation of chronic obstructive airways disease Status: Acute (2) Acute and chronic respiratory failure with hypoxia Status: Acute (3) Small cell carcinoma Status: Chronic (4) Anemia Status: Chronic Qualifiers: Anemia type: unspecified type Qualified Code(s): D64.9 - Anemia, unspecified (5) Leukopenia due to antineoplastic chemotherapy Status: Chronic Hospital course: Ms. Marie is a 52 year old female - Time Spent with Patient Total time spent providing and/or coordinating discharge services: Date of admission: 03/29/18 16:26 Primary care physician: Jhonny Perdomo MD Consults: 03/29/18 19:14 Consult to Nurse Navigator [CONS] Routine Comment: 03/30/18 08:44 Consult to Gastroenterology [CONS] Routine Consulting Provider: Gastroenterology Cheryl Reason for Consult: anemia r/o GI bleed Call Completed: Yes - Constitutional Vitals: Temp Pulse Resp BP Pulse Ox 98.1 F 102 16 116/73 92 04/01/18 07:04 04/01/18 07:04 04/01/18 07:25 04/01/18 07:04 04/01/18 07:25 - Attending Attestation I performed an independent interview and examine this patient. I agree with the findings, assessment, and plan of , internal medicine resident. I discussed the case with him in detail. Patient is doing well and is stable for discharge. She is not neutropenic but she is trending that way, consistent with recent chemotherapy. Medically she is improved. She will have close follow-up with her primary care physician as well as oncologist. Advised to return immediately should she have fevers, worsening shortness of breath, or any other problems. She will continue with Levaquin to complete A 7 day course. She will continue prednisone around for 2 additional days. 36 minutes spent on discharge and coordination of care, counseling.
== END 2018-04-01 11:41 | disposition home or self-care (01) | DRG 140 ==
LOC: EMEROO 12:27 → 2NENU 16:26
PROVIDERS: ADMIT Hospitalist; ATTEND Hospitalist

== ENCOUNTER 2018-04-02 01:35 | Inpatient (IN) ==
[2018-04-02] MEDS ORDERED: Ipratropium/Albuterol Neb 3 ML ONE (01:46)
[2018-04-02] MEDS ORDERED: methylPREDNISolone 125 MG/2 ML VIAL IVP ONE (01:49)
[2018-04-02] MEDS ORDERED: Ipratropium/Albuterol Neb 3 ML IH ONE ×2 (01:49→01:51)
[2018-04-02] MEDS ORDERED: Ondansetron 4 MG/2 ML VIAL ONE (01:50)
[2018-04-02] MEDS ORDERED: Ondansetron 4 MG/2 ML VIAL IVP ONE ×2 (01:58→02:14)
[2018-04-02 02:14] LABS: ABG Base Excess 18 mEq/L (-2 to 3); ABG HCO3 48 mEq/L (21-27); ABG Oxygen Saturation 100 % (95-98); ABG PCO2 109 mmHg (35-45); ABG PH 7.26 pH Units (7.32-7.45); ABG PO2 256 mmHg (85-104); ABG TCO2 52 mEq/L (20-26)
--- NOTE | 2018-04-02 02:42 | Emergency Department Note ---
Disposition Clinical Impression: Acute exacerbation of chronic obstructive airways disease Respiratory failure Qualifiers: Chronicity: unspecified Respiratory failure complication: hypoxia and hypercapnia Qualified Code(s): J96.91 - Respiratory failure, unspecified with hypoxia Neutropenia Qualifiers: Neutropenia type: unspecified Qualified Code(s): D70.9 - Neutropenia, unspecified Disposition: Admitted As Inpatient Condition: Critical General Adult HPI - General Chief complaint: ED Shortness of Breath/Dyspnea Stated complaint: sob Time Seen by Provider: 04/02/18 01:43 Source: EMS Limitations: altered mental status Nursing Notes Reviewed: Yes Vital Signs Reviewed: Yes - History of Present Illness Pain Scale: 0 - Related Data Home Medications Medication Instructions Recorded Confirmed Albuterol Neb [AccuNeb] 0.63 mg IH Q6H PRN 11/27/17 03/29/18 Albuterol Sulfate [Ventolin Hfa] 2 puff IH Q4H PRN 11/27/17 04/02/18 Atenolol [Tenormin] 25 mg PO DAILY 11/27/17 04/02/18 Diclofenac Sodium [Voltaren] 1 appl TP 5XD 11/27/17 04/02/18 Gabapentin [Neurontin] 600 mg PO TID 11/27/17 04/02/18 Ipratropium/Albuterol Sulfate 1 puff IH QID 11/27/17 04/02/18 [Combivent Respimat 20-100 Mcg] Loratadine [Claritin] 10 mg PO DAILY 11/27/17 04/02/18 Montelukast [Singulair] 10 mg PO HS 11/27/17 04/02/18 Omeprazole [PriLOSEC] 20 mg PO DAILY 11/27/17 04/02/18 Oxybutynin [Ditropan] 2.5 mg PO DAILY 11/27/17 04/02/18 Oxygen 2 l NS AD 11/27/17 03/29/18 Spironolactone [Aldactone] 25 mg PO BID 11/27/17 04/02/18 DULoxetine [Cymbalta] 30 mg PO DAILY 11/29/17 04/02/18 Fluticasone/Salmeterol [Advair 1 puff IH BID 04/02/18 04/02/18 250-50 Diskus] Fluticasone/Vilanterol [Breo 1 puff IH DAILY 04/02/18 04/02/18 Ellipta 100-25 Mcg INH] Nicotine Patch [Nicoderm] 21 mg TD DAILY 04/02/18 04/02/18 Previous Rx's Medication Instructions Recorded Ipratropium/Albuterol Neb [Duoneb] 3 ml IH [id number] PRN #100 inhsol 02/25/18 Docusate [Colace] 100 mg PO BID PRN capsule 03/07/18 ALPRAZolam [Xanax 0.5 MG Tablet] 0.5 mg PO QID PRN 30 Days #120 03/17/18 tablet OxyCODONE Immed Rel [Roxicodone 5 5 - 10 mg PO Q4H PRN 30 Days #240 03/17/18 MG] tablet levoFLOXacin [Levaquin] 500 mg PO DAILY #3 tablet 04/01/18 predniSONE [PredniSONE] 40 mg PO DAILY 2 Days #4 tablet 04/01/18 Allergies Allergy/AdvReac Type Severity Reaction Status Date / Time budesonide [From Symbicort] AdvReac Chest Pain Verified 03/04/18 07:38 Formoterol [From Symbicort] AdvReac Chest Pain Verified 03/04/18 07:38 Past Medical History - Past Medical History Medical history: Reports: asthma, cancer, COPD, hyperlipidemia, hypertension Surgical history: Reports: appendectomy, , cholecystectomy Psychiatric history: Reports: anxiety, depression - Social History Smoking Status: Former smoker Smokeless Tobacco Status: No Alcohol use: Reports: none Drug use: Reports: none Physical Exam - General Limitations: altered mental status General appearance: lethargic Course Vital Signs Temperature 97.8 F 04/02/18 01:42 Pulse Rate 97 04/02/18 01:42 Respiratory Rate 22 04/02/18 01:42 Blood Pressure 163/97 04/02/18 01:42 O2 Sat by Pulse Oximetry 98 04/02/18 01:42 Temperature 98.7 F 04/08/18 15:20 Pulse Rate 87 04/08/18 15:31 Respiratory Rate 18 04/08/18 15:20 Blood Pressure 132/68 04/08/18 15:20 O2 Sat by Pulse Oximetry 95 04/08/18 15:20 Oxygen Delivery Oxygen Delivery Bipap Medical Decision Making - Lab Data Result diagrams: 04/08/18 03:25 04/08/18 09:20 Lab Results 04/02/18 04/02/18 04/02/18 Range/Units 01:46 02:10 02:34 WBC (4.3-11.1) K/mcL RBC (3.82-4.97) M/mcL Hgb (11.5-15.4) g/dL Hct (35.3-44.9) % MCV (83.0-100.0) fL MCH (28.0-33.3) pg MCHC (31.6-35.5) g/dL RDW (11.5-14.5) % Plt Count (140-400) K/mcL MPV (9.4-12.4) fL Immature Gran % (0-4) % Seg Neutrophils % % Lymphocytes % % Monocytes % % Eosinophils % % Basophils % % Neutrophils # (1.6-8.9) K/mcL Lymphocytes # (0.6-4.6) K/mcL Monocytes # (0.0-1.3) K/mcL Eosinophils # (0.0-0.6) K/mcL Basophils # (0.0-0.2) K/mcL Toxic Granulation (Not Present) Platelet Estimate (Normal) Anisocytosis (Not Present) Sample Site L Radial ABG pH 7.26 L (7.32-7.45) pH Units ABG pCO2 109 H* (35-45) mmHg ABG pO2 256 H (85-104) mmHg ABG HCO3 48 H (21-27) mEq/L ABG Total CO2 52 H (20-26) mEq/L ABG O2 Saturation 100 H (95-98) % ABG Base Excess 18 H (-2 to 3) mEq/L Yuri Test Positive Respiration Rate O2 Delivery Device AeroTx Inspired O2 10.0 (1-15=lpm eu25-886=%) Tidal Volume cc Sodium 136 (136-145) mEq/L Potassium 3.8 (3.5-5.1) mEq/L Chloride 90 L (98-107) mEq/L Carbon Dioxide 42 H* (23-29) mEq/L BUN 18 (6-20) mg/dL Creatinine 0.54 L (0.60-1.20) mg/dL Est GFR ( Amer) > 60 (> 60) Est GFR (Non-Af Amer) > 60 (> 60) BUN/Creatinine Ratio 33 H (6-26) Glucose 130 H (70-105) mg/dL POC Glucose (70-99) mg/dL Calculated Osmolality 286 (280-300) Lactic Acid 0.8 (0.5-2.2) mmol/L Calcium 9.0 (8.6-10.3) mg/dL Total Bilirubin 0.5 (0.3-1.0) mg/dL AST 16 (13-39) Units/L ALT 11 (7-52) Units/L Alkaline Phosphatase 55 (34-104) Units/L Troponin I < 0.03 (< 0.04) ng/mL Serum Total Protein 6.0 L (6.4-8.9) g/dL Albumin 3.7 (3.5-5.7) g/dL Globulin 2.3 L (2.4-3.5) g/dL Albumin/Globulin Ratio 1.6 (1.1-2.2) 04/02/18 04/02/18 04/02/18 Range/Units 03:35 03:37 06:48 WBC 0.4 L* D (4.3-11.1) K/mcL RBC 3.08 L (3.82-4.97) M/mcL Hgb 9.0 L (11.5-15.4) g/dL Hct 28.6 L (35.3-44.9) % MCV 92.9 (83.0-100.0) fL MCH 29.2 (28.0-33.3) pg MCHC 31.5 L (31.6-35.5) g/dL RDW 16.2 H (11.5-14.5) % Plt Count 88 L (140-400) K/mcL MPV 9.5 (9.4-12.4) fL Immature Gran % 17.1 H (0-4) % Seg Neutrophils % 62.9 % Lymphocytes % 14.3 % Monocytes % 5.7 % Eosinophils % 0.0 % Basophils % 0.0 % Neutrophils # 0.3 L (1.6-8.9) K/mcL Lymphocytes # 0.1 L (0.6-4.6) K/mcL Monocytes # 0.0 (0.0-1.3) K/mcL Eosinophils # 0.0 (0.0-0.6) K/mcL Basophils # 0.0 (0.0-0.2) K/mcL Toxic Granulation Present A (Not Present) Platelet Estimate Decreased L (Normal) Anisocytosis 1+ A (Not Present) Sample Site R Radial ABG pH 7.33 (7.32-7.45) pH Units ABG pCO2 87 H* D (35-45) mmHg ABG pO2 103 D (85-104) mmHg ABG HCO3 46 H (21-27) mEq/L ABG Total CO2 49 H (20-26) mEq/L ABG O2 Saturation 97 (95-98) % ABG Base Excess 17 H (-2 to 3) mEq/L Yuri Test N/A Respiration Rate 20 O2 Delivery Device BiPAP Inspired O2 40.0 (1-15=lpm [id number]=%) Tidal Volume 500 cc Sodium (136-145) mEq/L Potassium (3.5-5.1) mEq/L Chloride (98-107) mEq/L Carbon Dioxide (23-29) mEq/L BUN (6-20) mg/dL Creatinine (0.60-1.20) mg/dL Est GFR ( Amer) (> 60) Est GFR (Non-Af Amer) (> 60) BUN/Creatinine Ratio (6-26) Glucose (70-105) mg/dL POC Glucose 147 H (70-99) mg/dL Calculated Osmolality (280-300) Lactic Acid (0.5-2.2) mmol/L Calcium (8.6-10.3) mg/dL Total Bilirubin (0.3-1.0) mg/dL AST (13-39) Units/L ALT (7-52) Units/L Alkaline Phosphatase (34-104) Units/L Troponin I (< 0.04) ng/mL Serum Total Protein (6.4-8.9) g/dL Albumin (3.5-5.7) g/dL Globulin (2.4-3.5) g/dL Albumin/Globulin Ratio (1.1-2.2) 04/02/18 04/02/18 04/02/18 Range/Units 09:48 13:36 16:10 WBC (4.3-11.1) K/mcL RBC (3.82-4.97) M/mcL Hgb (11.5-15.4) g/dL Hct (35.3-44.9) % MCV (83.0-100.0) fL MCH (28.0-33.3) pg MCHC (31.6-35.5) g/dL RDW (11.5-14.5) % Plt Count (140-400) K/mcL MPV (9.4-12.4) fL Immature Gran % (0-4) % Seg Neutrophils % % Lymphocytes % % Monocytes % % Eosinophils % % Basophils % % Neutrophils # (1.6-8.9) K/mcL Lymphocytes # (0.6-4.6) K/mcL Monocytes # (0.0-1.3) K/mcL Eosinophils # (0.0-0.6) K/mcL Basophils # (0.0-0.2) K/mcL Toxic Granulation (Not Present) Platelet Estimate (Normal) Anisocytosis (Not Present) Sample Site ABG pH (7.32-7.45) pH Units ABG pCO2 (35-45) mmHg ABG pO2 (85-104) mmHg ABG HCO3 (21-27) mEq/L ABG Total CO2 (20-26) mEq/L ABG O2 Saturation (95-98) % ABG Base Excess (-2 to 3) mEq/L Yuri Test Respiration Rate O2 Delivery Device Inspired O2 (1-15=lpm [id number]=%) Tidal Volume cc Sodium (136-145) mEq/L Potassium (3.5-5.1) mEq/L Chloride (98-107) mEq/L Carbon Dioxide (23-29) mEq/L BUN (6-20) mg/dL Creatinine (0.60-1.20) mg/dL Est GFR ( Amer) (> 60) Est GFR (Non-Af Amer) (> 60) BUN/Creatinine Ratio (6-26) Glucose (70-105) mg/dL POC Glucose (70-99) mg/dL Calculated Osmolality (280-300) Lactic Acid 0.7 (0.5-2.2) mmol/L Calcium (8.6-10.3) mg/dL Total Bilirubin (0.3-1.0) mg/dL AST (13-39) Units/L ALT (7-52) Units/L Alkaline Phosphatase (34-104) Units/L Troponin I < 0.03 < 0.03 (< 0.04) ng/mL Serum Total Protein (6.4-8.9) g/dL Albumin (3.5-5.7) g/dL Globulin (2.4-3.5) g/dL Albumin/Globulin Ratio (1.1-2.2) Attestation Statement - Attestation Attestation: I examined this patient and my medical decision-making was reviewed with the Resident Physician. I agree with the documented findings, disposition and treatment plan as described except to the extent set forth below. Findings consistent with acute on chronic hypercapnic respiratory failure. Will attempt BIPAP, recheck ABG, plan to admit. The high probability of a clinically significant, sudden or life threatening deterioration of the [respiratory] system(s) required my full and direct attention, intervention and personal management. The aggregate critical care time was [35] minutes. This time is in addition to time spent performing reported procedures but includes the following:
[2018-04-02 03:24] LABS: Troponin I < 0.03 ng/mL (< 0.04)
[2018-04-02 03:32] LABS: Alanine Aminotransferase 11 Units/L (7-52); Albumin 3.7 g/dL (3.5-5.7); Albumin/Globulin Ratio 1.6 (1.1-2.2); Alkaline Phosphatase 55 Units/L (34-104); Aspartate Amino Transferase 16 Units/L (13-39); BUN/Creatinine Ratio 33 (6-26); Bilirubin,Total 0.5 mg/dL (0.3-1.0); Blood Urea Nitrogen 18 mg/dL (6-20); Carbon Dioxide 42 mEq/L (23-29); Chloride 90 mEq/L (98-107); Globulin 2.3 g/dL (2.4-3.5); Glucose 130 mg/dL (70-105); Osmolality,Calculated 286 (280-300); Potassium 3.8 mEq/L (3.5-5.1); Sodium 136 mEq/L (136-145); eGFR For African Americans > 60 (> 60); eGFR For Non-African Americans > 60 (> 60)
[2018-04-02 03:45] LABS: ABG Base Excess 17 mEq/L (-2 to 3); ABG HCO3 46 mEq/L (21-27); ABG Oxygen Saturation 97 % (95-98); ABG PCO2 87 mmHg (35-45); ABG PH 7.33 pH Units (7.32-7.45); ABG PO2 103 mmHg (85-104); ABG TCO2 49 mEq/L (20-26); Blood Gas Respiration Rate 20; Blood Gas VT 500 cc
[2018-04-02 03:47] LABS: Red Cell Distribution Width 16.2 % (11.5-14.5)
[2018-04-02 03:49] LABS: Hematocrit 28.6 % (35.3-44.9); Immature Granulocytes % 17.1 % (0-4); Lymphocytes # 0.1 K/mcL (0.6-4.6); Lymphocytes % 14.3 %; Mean Corpuscular HGB Conc 31.5 g/dL (31.6-35.5); Mean Corpuscular Hemoglobin 29.2 pg (28.0-33.3); Mean Corpuscular Volume 92.9 fL (83.0-100.0); Mean Platelet Volume 9.5 fL (9.4-12.4); Monocytes % 5.7 %; Neutrophils # 0.3 K/mcL (1.6-8.9); Red Blood Count 3.08 M/mcL (3.82-4.97); Segmented Neutrophils % 62.9 %
[2018-04-02 03:53] LABS: Platelet Count 88 K/mcL (140-400)
[2018-04-02] MEDS ORDERED: Levofloxacin 750 MG/150 ML 750 MG/150 ML BAG IVPB ONE (03:58)
[2018-04-02 04:06] LABS: Anisocytosis 1+ (Not Present); Platelet Estimate Decreased (Normal); Toxic Granulation Present (Not Present)
--- NOTE | 2018-04-02 04:52 | Emergency Department Note ---
Disposition Clinical Impression: Acute exacerbation of chronic obstructive airways disease Respiratory failure Qualifiers: Chronicity: unspecified Respiratory failure complication: hypoxia and hypercapnia Qualified Code(s): J96.91 - Respiratory failure, unspecified with hypoxia; J96.92 - Respiratory failure, unspecified with hypercapnia Neutropenia Qualifiers: Neutropenia type: unspecified Qualified Code(s): D70.9 - Neutropenia, unspecified Disposition: Admitted As Inpatient Condition: Critical General Adult HPI - General Chief complaint: ED Shortness of Breath/Dyspnea Stated complaint: sob Time Seen by Provider: 04/02/18 01:43 Source: patient, EMS Limitations: altered mental status Nursing Notes Reviewed: Yes Vital Signs Reviewed: Yes - History of Present Illness HPI Narrative: 52 year old female with history of small cell lung cancer, pancytopenia, COPD presented with shortness of breath, wheezing, increased sputum production. Patient was admitted to hospital for exacerbation of COPD, respiratory failure a week ago. Patient was discharged home yesterday due to stable condition. Unfortunately patient experienced worsening shortness of breath and changed mental status since this morning. Patient's family called ambulance and sent her back to ER. Patient has severe shortness of breath and drowsiness when arriving at ER. No chills and a fever. Pt is currently on Chemotherapy for lung cancer. Onset (ago): day(s) (1) Location: other (shortness of breath and drowsiness) Pain Scale: 0 Consistency: constant - Related Data Home Medications Medication Instructions Recorded Confirmed Albuterol Neb [AccuNeb] 0.63 mg IH Q6H PRN 11/27/17 03/29/18 Albuterol Sulfate [Ventolin Hfa] 2 puff IH QID PRN 11/27/17 03/29/18 Atenolol [Tenormin] 25 mg PO DAILY 11/27/17 03/29/18 Diclofenac Sodium [Voltaren] 1 appl TP QID PRN 11/27/17 03/29/18 Gabapentin [Neurontin] 600 mg PO TID 11/27/17 03/29/18 Ipratropium/Albuterol Sulfate 1 puff IH QID 11/27/17 03/29/18 [Combivent Respimat 20-100 Mcg] Loratadine [Claritin] 10 mg PO DAILY 11/27/17 03/29/18 Montelukast [Singulair] 10 mg PO HS 11/27/17 03/29/18 Omeprazole [PriLOSEC] 20 mg PO DAILY 11/27/17 03/29/18 Oxybutynin [Ditropan] 2.5 mg PO DAILY 11/27/17 03/29/18 Oxygen 2 l NS AD 11/27/17 03/29/18 Spironolactone [Aldactone] 25 mg PO BID 11/27/17 03/29/18 DULoxetine [Cymbalta] 30 mg PO DAILY 11/29/17 03/29/18 Previous Rx's Medication Instructions Recorded Promethazine [Phenergan] 25 mg PO Q6HR PRN #30 tablet 01/23/18 Ondansetron [Zofran] 8 mg PO Q8HR PRN #30 tablet 02/10/18 Nystatin [Nystatin Suspension] 500,000 units PO QID #120 ml 02/20/18 Ipratropium/Albuterol Neb [Duoneb] 3 ml IH [id number] PRN #100 inhsol 02/25/18 Docusate [Colace] 100 mg PO BID PRN capsule 03/07/18 Nicotine Patch [Nicoderm] 14 mg TD DAILY #30 patch.[id number] 03/07/18 ALPRAZolam [Xanax 0.5 MG Tablet] 0.5 mg PO QID PRN 30 Days #120 03/17/18 tablet OxyCODONE Immed Rel [Roxicodone 5 5 - 10 mg PO Q4H PRN 30 Days #240 03/17/18 MG] tablet levoFLOXacin [Levaquin] 500 mg PO DAILY #3 tablet 04/01/18 predniSONE [PredniSONE] 40 mg PO DAILY 2 Days #4 tablet 04/01/18 Allergies Allergy/AdvReac Type Severity Reaction Status Date / Time budesonide [From Symbicort] AdvReac Chest Pain Verified 03/04/18 07:38 Formoterol [From Symbicort] AdvReac Chest Pain Verified 03/04/18 07:38 Constitutional: Denies: fever, chills, weakness, weight change Eyes: Denies: eye pain, eye discharge, vision change ENT ED: Denies: ear pain, throat pain, dental pain, hearing loss, epistaxis, congestion, dysphagia Cardiovascular: Denies: chest pain, palpitations, dyspnea on exertion, edema, syncope Respiratory: Reports: dyspnea, wheezes. Denies: cough, hemoptysis, stridor Gastrointestinal: Denies: abdominal pain, nausea, vomiting, diarrhea, constipation, hematemesis, melena, hematochezia Genitourinary: Denies: dysuria, frequency, hematuria, discharge Musculoskeletal: Denies: back pain, neck pain, arthralgia, myalgia Integumentary: Denies: rash, abrasion, lesions Neurological: Reports: other (Drowsiness). Denies: headache, weakness, numbness , paresthesias, confusion, abnormal gait, vertigo Psychiatric: Denies: anxiety, depression, suicidal thoughts, homicidal thoughts , auditory hallucinations, visual hallucinations Endocrine: Denies: fatigue Hematological/Lymphatic: Denies: easy bleeding, easy bruising Allergic/Immunologic: Denies: facial swelling, urticaria Past Medical History - Past Medical History Medical history: Reports: asthma, cancer, COPD, hyperlipidemia, hypertension Surgical history: Reports: appendectomy, , cholecystectomy Psychiatric history: Reports: anxiety, depression - Social History Smoking Status: Former smoker Smokeless Tobacco Status: No Alcohol use: Reports: none Drug use: Reports: none Physical Exam - General Limitations: altered mental status General appearance: lethargic - Head Head exam: atraumatic, normocephalic, normal inspection - Eye Eye exam: Present: normal appearance, PERRL, EOMI - ENT ENT exam: normal exam, normal oropharynx, mucous membranes moist - Neck Neck exam: Present: normal inspection, full ROM, trachea midline - Chest Chest inspection: Present: symmetric chest wall rise - Respiratory Respiratory exam: Present: respiratory distress, wheezes, accessory muscle use - Cardiovascular Cardiovascular exam: Present: tachycardia - Abdominal Exam Abdominal exam: Present: soft, Non-Tender. Absent: tenderness, distention, guarding, rebound, rigidity - Extremities Exam Extremities exam: Present: normal inspection, full ROM. Absent: tenderness, pedal edema - Back Exam Back exam: Present: normal inspection, full ROM. Absent: tenderness - Neurological Exam Neurological exam: Present: other (Severe drowsiness, awakable, but not able to answer questions) - Skin Skin exam: Present: warm, dry, intact, normal color Course Vital Signs Temperature 97.8 F 04/02/18 01:42 Pulse Rate 97 04/02/18 01:42 Respiratory Rate 22 04/02/18 01:42 Blood Pressure 163/97 04/02/18 01:42 O2 Sat by Pulse Oximetry 98 04/02/18 01:42 Temperature 97.8 F 04/02/18 01:42 Pulse Rate 92 04/02/18 04:38 Respiratory Rate 21 04/02/18 04:38 Blood Pressure 104/82 04/02/18 04:38 O2 Sat by Pulse Oximetry 93 04/02/18 04:38 Oxygen Delivery Oxygen Delivery Bipap Medical Decision Making - MDM Narrative Medical decision making narrative: 52 year old female with history of stage III lung cancer, COPD presents with worsening shortness of breath and mental status change. Patient was admitted to hospital a week ago for respiratory failure, COPD exacerbation, pancytopenia. Patient was discharged to home yesterday due to stable condition. Patient experienced worsening shortness of breath and drowsiness since this morning. Physical exam: Drowsiness, awakable, but not able to answer questions, severe breath distress, wheezing in bilateral lungs, tachycardia. O2 sat 93 with bipap. labs: CO2 107 when arriving, decreased to 42 after being applied bipap, white cell 0.4. chest xray: Right basilar atelectasis or, less likely, pneumonia. But considering white cell 0.4, pt is treated with antibiotics. Pt will be admitted to ICU for respiratory failure, neutropenia, and COPD exacerbation. Spoke with hospitalist - Lab Data Result diagrams: 04/02/18 03:35 04/02/18 01:46 Lab Results 04/02/18 04/02/18 04/02/18 Range/Units 01:46 02:10 02:34 WBC (4.3-11.1) K/mcL RBC (3.82-4.97) M/mcL Hgb (11.5-15.4) g/dL Hct (35.3-44.9) % MCV (83.0-100.0) fL MCH (28.0-33.3) pg MCHC (31.6-35.5) g/dL RDW (11.5-14.5) % Plt Count (140-400) K/mcL MPV (9.4-12.4) fL Immature Gran % (0-4) % Seg Neutrophils % % Lymphocytes % % Monocytes % % Eosinophils % % Basophils % % Neutrophils # (1.6-8.9) K/mcL Lymphocytes # (0.6-4.6) K/mcL Monocytes # (0.0-1.3) K/mcL Eosinophils # (0.0-0.6) K/mcL Basophils # (0.0-0.2) K/mcL Toxic Granulation (Not Present) Platelet Estimate (Normal) Anisocytosis (Not Present) Sample Site L Radial ABG pH 7.26 L (7.32-7.45) pH Units ABG pCO2 109 H* (35-45) mmHg ABG pO2 256 H (85-104) mmHg ABG HCO3 48 H (21-27) mEq/L ABG Total CO2 52 H (20-26) mEq/L ABG O2 Saturation 100 H (95-98) % ABG Base Excess 18 H (-2 to 3) mEq/L Yuri Test Positive Respiration Rate O2 Delivery Device AeroTx Inspired O2 10.0 (1-15=lpm oi43-795=%) Tidal Volume cc Sodium 136 (136-145) mEq/L Potassium 3.8 (3.5-5.1) mEq/L Chloride 90 L (98-107) mEq/L Carbon Dioxide 42 H* (23-29) mEq/L BUN 18 (6-20) mg/dL Creatinine 0.54 L (0.60-1.20) mg/dL Est GFR ( Amer) > 60 (> 60) Est GFR (Non-Af Amer) > 60 (> 60) BUN/Creatinine Ratio 33 H (6-26) Glucose 130 H (70-105) mg/dL Calculated Osmolality 286 (280-300) Lactic Acid 0.8 (0.5-2.2) mmol/L Calcium 9.0 (8.6-10.3) mg/dL Total Bilirubin 0.5 (0.3-1.0) mg/dL AST 16 (13-39) Units/L ALT 11 (7-52) Units/L Alkaline Phosphatase 55 (34-104) Units/L Troponin I < 0.03 (< 0.04) ng/mL Serum Total Protein 6.0 L (6.4-8.9) g/dL Albumin 3.7 (3.5-5.7) g/dL Globulin 2.3 L (2.4-3.5) g/dL Albumin/Globulin Ratio 1.6 (1.1-2.2) 04/02/18 04/02/18 Range/Units 03:35 03:37 WBC 0.4 L* D (4.3-11.1) K/mcL RBC 3.08 L (3.82-4.97) M/mcL Hgb 9.0 L (11.5-15.4) g/dL Hct 28.6 L (35.3-44.9) % MCV 92.9 (83.0-100.0) fL MCH 29.2 (28.0-33.3) pg MCHC 31.5 L (31.6-35.5) g/dL RDW 16.2 H (11.5-14.5) % Plt Count 88 L (140-400) K/mcL MPV 9.5 (9.4-12.4) fL Immature Gran % 17.1 H (0-4) % Seg Neutrophils % 62.9 % Lymphocytes % 14.3 % Monocytes % 5.7 % Eosinophils % 0.0 % Basophils % 0.0 % Neutrophils # 0.3 L (1.6-8.9) K/mcL Lymphocytes # 0.1 L (0.6-4.6) K/mcL Monocytes # 0.0 (0.0-1.3) K/mcL Eosinophils # 0.0 (0.0-0.6) K/mcL Basophils # 0.0 (0.0-0.2) K/mcL Toxic Granulation Present A (Not Present) Platelet Estimate Decreased L (Normal) Anisocytosis 1+ A (Not Present) Sample Site R Radial ABG pH 7.33 (7.32-7.45) pH Units ABG pCO2 87 H* D (35-45) mmHg ABG pO2 103 D (85-104) mmHg ABG HCO3 46 H (21-27) mEq/L ABG Total CO2 49 H (20-26) mEq/L ABG O2 Saturation 97 (95-98) % ABG Base Excess 17 H (-2 to 3) mEq/L Yuri Test N/A Respiration Rate 20 O2 Delivery Device BiPAP Inspired O2 40.0 (1-15=lpm [id number]=%) Tidal Volume 500 cc Sodium (136-145) mEq/L Potassium (3.5-5.1) mEq/L Chloride (98-107) mEq/L Carbon Dioxide (23-29) mEq/L BUN (6-20) mg/dL Creatinine (0.60-1.20) mg/dL Est GFR ( Amer) (> 60) Est GFR (Non-Af Amer) (> 60) BUN/Creatinine Ratio (6-26) Glucose (70-105) mg/dL Calculated Osmolality (280-300) Lactic Acid (0.5-2.2) mmol/L Calcium (8.6-10.3) mg/dL Total Bilirubin (0.3-1.0) mg/dL AST (13-39) Units/L ALT (7-52) Units/L Alkaline Phosphatase (34-104) Units/L Troponin I (< 0.04) ng/mL Serum Total Protein (6.4-8.9) g/dL Albumin (3.5-5.7) g/dL Globulin (2.4-3.5) g/dL Albumin/Globulin Ratio (1.1-2.2)
[2018-04-02] MEDS ORDERED: Dexmedetomidine HCl 400 MCG/100 ML MLS IVC ONE (09:22)
[2018-04-02] MEDS ORDERED: Naloxone 0.4 MG/ML INJ IVP PRN (09:31)
--- NOTE | 2018-04-02 09:36 | Pulmonology History & Physical ---
<Douglas Coughlin - Last Filed: 04/02/18 13:56> Date of Encounter: 04/02/18 Time of Encounter: 09:36 Assessment and Plan (1) Sepsis Current visit: No Status: Acute Systems based plan: - Patient seen and examined. - Labs, radiology, chart personally reviewed. LEAD APPLICATION ARCHITECT: Intermittently sleepy, but likely related to her hypercapnia, otherwise responds appropriately Pulmonary: Severe COPD, which is further complicated by her malignancy. Pulmonary embolism cannot be ruled out, so she was started on Lovenox. She had bilateral DVT ultrasounds just 3 days ago that were normal. Once she is more stable and resuscitated we will likely get a CT of her chest to further evaluate for PE versus underlying pneumonia that may have been missed on chest x -ray Cardiovascular: Has been hemodynamically stable. We will monitor closely GI: Nothing by mouth Nutrition per dietary and GI prophylaxis per routine Heme: DVT prophylaxis covered currently by the therapeutic Lovenox ID: Continue antibiotics and plan to de-escalation Renal: Trend Endorcine: Monitor blood glucose Lines: all lines checked and no evidence of infections Skin: skin care to prevent pressure ulcers per nursing routine care Overall prognosis is poor 1. Neutropenia and pancytopenia, likely related to her receiving chemotherapy. She was also tachycardic. Chest x-ray showed a possible pneumonia versus atelectasis. Due to her history of cancer involving the lung. We will treat her aggressively as a healthcare acquired pneumonia with vancomycin and Zosyn and Levaquin, pending blood and respiratory cultures. 2. A voided massive IV fluid bolus due to concern of her volume overload with her already requiring BiPAP and would not want to have to intubate her with her severe COPD as she would be very difficult to liberate from the vent 3. We will continue antibiotics with plan to de-escalate 4. When necessary boluses of fluid if she becomes hypotensive 5. PE cannot be ruled out. She had bilateral DVT ultrasounds 3 days ago that were normal. However, with her malignancy this puts her at significantly increased risk of having thromboembolic disease , so she was started on a milligram per kilogram of Lovenox twice a day. We will monitor for any signs of bleeding, but negative currently Qualifiers: Sepsis type: sepsis due to unspecified organism Qualified Code(s): A41.9 - Sepsis, unspecified organism (2) Lung cancer Current visit: Yes Status: Acute 1. 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 We will consult with oncology for further management Qualifiers: Laterality: unspecified laterality Lung location: unspecified part of lung Qualified Code(s): C34.90 - Malignant neoplasm of unspecified part of unspecified bronchus or lung (3) Acute and chronic respiratory failure with hypoxia Current visit: Yes Status: Acute 1. Multifactorial related to severe COPD and new lung cancer. Patient was placed on BiPAP and had hypercapnic respiratory failure. We will continue BiPAP and wean as tolerated (4) DVT prophylaxis Current visit: Yes Status: Acute 1. Lovenox for concern over PE, will de-escalate once PE is ruled out History of Present Illness Chief complaint: dyspnea HPI: Ms. Marie is a 52 year old female presenting from the ER with the complaint of shortness of breath. She has a past medical history of chronic respiratory failure with is O2 dependent at 2LPM fir severe COPD. 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 Presented to the ED SOB just one day after being discharged from this hospital for COPD exacerbation. She also c/o increased sputum production which she had prior to previous admission that had resolved with treatment as an inpatient. According to the ER record, she was somnolent and was placed on BiPAP. No fevers, chest pain, abd pain, vomiting, diarrhea, rash. Past Med Surg Social Fam HX - Past Medical History Medical history: asthma, cancer, COPD, hyperlipidemia, hypertension Additional medical history: lung CA Psychiatric history: anxiety, depression - Past Surgical History Surgical History: appendectomy, , cholecystectomy Additional surgical history: x3 - Social History Smoking Status: Former smoker Smokeless Tobacco Status: No Alcohol use: none Drug use: none - Family History Mother Living Status: Hx Family Cardiac Disorders: No Hx Family Respiratory Disorders: Yes (COPD) Hx Family Cancer: No Hx Family GI Disorders: Yes (hernia) Hx Family Endocrine Disorder: Yes (thyriod) Hx Family Neuromuscular Disorders: No Hx Family Neurologic Disorders: No Hx Family HEENT Disorders: No Hx Family Autoimmune Disorders: No Father Living Status: Hx Family Cardiac Disorders: Yes Hx Family Respiratory Disorders: Yes (COPD) Hx Family Cancer: Yes (colon cancer) Hx Family GI Disorders: No Hx Family Endocrine Disorder: No Hx Family Neuromuscular Disorders: No Hx Family Neurologic Disorders: No Hx Family HEENT Disorders: No Hx Family Autoimmune Disorders: No Medications and Allergies Albuterol Neb [AccuNeb] 0.63 mg IH Q6H PRN 11/27/17 [History] Albuterol Sulfate [Ventolin Hfa] 2 puff IH Q4H PRN 11/27/17 [History] Atenolol [Tenormin] 25 mg PO DAILY 11/27/17 [History] Diclofenac Sodium [Voltaren] 1 appl TP 5XD 11/27/17 [History] Gabapentin [Neurontin] 600 mg PO TID 11/27/17 [History] Ipratropium/Albuterol Sulfate [Combivent Respimat 20-100 Mcg] 1 puff IH QID [History] Loratadine [Claritin] 10 mg PO DAILY 11/27/17 [History] Montelukast [Singulair] 10 mg PO HS 11/27/17 [History] Omeprazole [PriLOSEC] 20 mg PO DAILY 11/27/17 [History] Oxybutynin [Ditropan] 2.5 mg PO DAILY 11/27/17 [History] Oxygen 2 l NS AD 11/27/17 [History] Spironolactone [Aldactone] 25 mg PO BID 11/27/17 [History] DULoxetine [Cymbalta] 30 mg PO DAILY 11/29/17 [History] Ipratropium/Albuterol Neb [Duoneb] 3 ml IH [id number] PRN #100 inhsol 02/25/18 [Rx] Docusate [Colace] 100 mg PO BID PRN capsule 03/07/18 [Rx] ALPRAZolam [Xanax 0.5 MG Tablet] 0.5 mg PO QID PRN 30 Days #120 tablet 03/17/18 [Rx] OxyCODONE Immed Rel [Roxicodone 5 MG] 5 - 10 mg PO Q4H PRN 30 Days #240 tablet 03/17/18 [Rx] levoFLOXacin [Levaquin] 500 mg PO DAILY #3 tablet 04/01/18 [Rx] predniSONE [PredniSONE] 40 mg PO DAILY 2 Days #4 tablet 04/01/18 [Rx] Fluticasone/Salmeterol [Advair 250-50 Diskus] 1 puff IH BID 04/02/18 [History] Fluticasone/Vilanterol [Breo Ellipta 100-25 Mcg INH] 1 puff IH DAILY 04/02/18 [ History] Nicotine Patch [Nicoderm] 21 mg TD DAILY 04/02/18 [History] 3 Allergy/AdvReac Type Severity Reaction Status Date / Time budesonide [From Symbicort] AdvReac Chest Pain Verified 03/04/18 07:38 Formoterol [From Symbicort] AdvReac Chest Pain Verified 03/04/18 07:38 All Systems: The remainder of the systems were reviewed and are negative Review of Systems: As reviewed in the HPI. All other systems reviewed are negative or normal. Physical Examination Vital Signs: Vital Signs, Last 4 Hours Temp Pulse Resp BP Pulse Ox 04/02/18 08:00 99 16 115/52 94 04/02/18 07:28 22 109/61 95 04/02/18 06:57 97.7 F 94 24 141/71 95 04/02/18 05:52 103 29 171/77 95 General appearance: asleep Eyes: nonicteric ENT: oropharynx dry Neck: supple Effort: mildly labored (BiPAP) Auscultation: bilateral: diminished breath sounds Cardiovascular: regular rate and rhythm Gastrointestinal: normoactive bowel sounds, non-distended Integumentary: normal Extremities: no cyanosis, no edema, no clubbing Musculoskeletal: no deformities, ROM normal unable to assess due to mental status Results - Laboratory Findings CBC and BMP: 04/02/18 03:35 04/02/18 01:46 ABG ABG pH 7.33 pH Units (7.32-7.45) 04/02/18 03:37 ABG pCO2 87 mmHg (35-45) H* D 04/02/18 03:37 ABG pO2 103 mmHg (85-104) D 04/02/18 03:37 ABG O2 Saturation 97 % (95-98) 04/02/18 03:37 Abnormal lab findings: Abnormal lab results WBC 0.4 K/mcL (4.3-11.1) L* D 04/02/18 03:35 RBC 3.08 M/mcL (3.82-4.97) L 04/02/18 03:35 Hgb 9.0 g/dL (11.5-15.4) L 04/02/18 03:35 Hct 28.6 % (35.3-44.9) L 04/02/18 03:35 MCHC 31.5 g/dL (31.6-35.5) L 04/02/18 03:35 RDW 16.2 % (11.5-14.5) H 04/02/18 03:35 Plt Count 88 K/mcL (140-400) L 04/02/18 03:35 Immature Gran % 17.1 % (0-4) H 04/02/18 03:35 Neutrophils # 0.3 K/mcL (1.6-8.9) L 04/02/18 03:35 Lymphocytes # 0.1 K/mcL (0.6-4.6) L 04/02/18 03:35 Toxic Granulation Present (Not Present) A 04/02/18 03:35 Platelet Estimate Decreased (Normal) L 04/02/18 03:35 Anisocytosis 1+ (Not Present) A 04/02/18 03:35 ABG pCO2 87 mmHg (35-45) H* D 04/02/18 03:37 ABG HCO3 46 mEq/L (21-27) H 04/02/18 03:37 ABG Total CO2 49 mEq/L (20-26) H 04/02/18 03:37 ABG Base Excess 17 mEq/L (-2 to 3) H 04/02/18 03:37 Chloride 90 mEq/L (98-107) L 04/02/18 01:46 Carbon Dioxide 42 mEq/L (23-29) H* 04/02/18 01:46 Creatinine 0.54 mg/dL (0.60-1.20) L 04/02/18 01:46 BUN/Creatinine Ratio 33 (6-26) H 04/02/18 01:46 Glucose 130 mg/dL (70-105) H 04/02/18 01:46 POC Glucose 147 mg/dL (70-99) H 04/02/18 06:48 Serum Total Protein 6.0 g/dL (6.4-8.9) L 04/02/18 01:46 Globulin 2.3 g/dL (2.4-3.5) L 04/02/18 01:46 <Emmanuel Contreras S - Last Filed: 04/02/18 20:14> Date of Encounter: 04/02/18 History of Present Illness HPI: Current is a 52 year old female All Systems: The remainder of the systems were reviewed and are negative Physical Examination Vital Signs: Vital Signs, Last 4 Hours Temp Pulse Resp BP Pulse Ox 04/02/18 19:50 23 130/76 94 04/02/18 18:00 95 23 118/74 95 04/02/18 17:00 83 22 118/67 93 04/02/18 16:15 97.5 F L 04/02/18 16:00 78 25 112/55 92 Results - Laboratory Findings CBC and BMP: 04/02/18 03:35 04/02/18 01:46 ABG ABG pH 7.33 pH Units (7.32-7.45) 04/02/18 03:37 ABG pCO2 87 mmHg (35-45) H* D 04/02/18 03:37 ABG pO2 103 mmHg (85-104) D 04/02/18 03:37 ABG O2 Saturation 97 % (95-98) 04/02/18 03:37 Abnormal lab findings: Abnormal lab results WBC 0.4 K/mcL (4.3-11.1) L* D 04/02/18 03:35 RBC 3.08 M/mcL (3.82-4.97) L 04/02/18 03:35 Hgb 9.0 g/dL (11.5-15.4) L 04/02/18 03:35 Hct 28.6 % (35.3-44.9) L 04/02/18 03:35 MCHC 31.5 g/dL (31.6-35.5) L 04/02/18 03:35 RDW 16.2 % (11.5-14.5) H 04/02/18 03:35 Plt Count 88 K/mcL (140-400) L 04/02/18 03:35 Immature Gran % 17.1 % (0-4) H 04/02/18 03:35 Neutrophils # 0.3 K/mcL (1.6-8.9) L 04/02/18 03:35 Lymphocytes # 0.1 K/mcL (0.6-4.6) L 04/02/18 03:35 Toxic Granulation Present (Not Present) A 04/02/18 03:35 Platelet Estimate Decreased (Normal) L 04/02/18 03:35 Anisocytosis 1+ (Not Present) A 04/02/18 03:35 ABG pCO2 87 mmHg (35-45) H* D 04/02/18 03:37 ABG HCO3 46 mEq/L (21-27) H 04/02/18 03:37 ABG Total CO2 49 mEq/L (20-26) H 04/02/18 03:37 ABG Base Excess 17 mEq/L (-2 to 3) H 04/02/18 03:37 Chloride 90 mEq/L (98-107) L 04/02/18 01:46 Carbon Dioxide 42 mEq/L (23-29) H* 04/02/18 01:46 Creatinine 0.54 mg/dL (0.60-1.20) L 04/02/18 01:46 BUN/Creatinine Ratio 33 (6-26) H 04/02/18 01:46 Glucose 130 mg/dL (70-105) H 04/02/18 01:46 POC Glucose 147 mg/dL (70-99) H 04/02/18 06:48 Serum Total Protein 6.0 g/dL (6.4-8.9) L 04/02/18 01:46 Globulin 2.3 g/dL (2.4-3.5) L 04/02/18 01:46 - Attending Attestation I saw and evaluated this patient and my medical decision-making was reviewed with the Resident Physician. I agree with the documented findings, disposition and treatment plan as described except to the extent set forth below. We independently had [id number] contact with the patient Except for few additional assesment I spent 35 minutes of Critical Care time with this patient. It involved decision making of high complexity to assess, manipulate, and support vital organ system failure and/or to prevent further life threatening deterioration of the patient's condition. The time involved in the performance of separately reportable procedures was not counted toward critical care time. Patient seen and examined at bedside Labs, radiology, chart personally reviewed. Management was reviewed during multidisciplinary critical care rounds. LEAD APPLICATION ARCHITECT:Patient was anxious during BIPAP use started on Precedex patient is tolerating BIPAP well . Patient is following commands . Pulm: Patient has acute exacerbation of COPD she started to vomit may be she aspirated led to flare up of COPD she was recently discharged that is yesterday from the hospital for COPD exacerbation , few days ago she was ruled out for PE at that time since the sudden onset of symptoms will empirically treat for PE . To continue steroids , bronchodilators , antibiotics for HAP . Patient has acceptable oxygenation BIPAP . Patient to continue BIPAP for Acute on Chronic hypoxic and hypercapnic respiratory failure. Cards: Patient is hemodynamically stable . FEN-GI:NPO for now Renal: Labs and output reviewed ID: Patient had tachycardia and tachypnea it all looks like her COPD flare up i doubt she has sepsis at this point . Since she is neutropenic will do Broad spectrum antibiotic and cultures . Patient lactate was normal Heme/Onc:Patient small cell lung ca now on chemo and radiation Endo: Glucose Monitored Integ/MSK: Skin Care per routine ICU Nursing Protocol to prevent ulcers. Lines: All lines examined without evidence of infection : Dispo: Critically ill high chance of endotracheal intubation . CODE:Full Code
[2018-04-02] MEDS ORDERED: Vancomycin (wt based) 1,000 MG VIAL IVPB SCH (10:00)
[2018-04-02] MEDS: Dexmedetomidine HCl 400 MCG/100 ML MLS IVC SCH ×2 (10:15→19:50)
[2018-04-02] MEDS: Ipratropium/Albuterol Neb 3 ML IH SCH ×4 (11:32→23:52)
[2018-04-02] MEDS: MethylPREDNISolone 40 MG/ML VIAL IVP SCH ×2 (11:37→20:34)
[2018-04-02] MEDS: *HR* Enoxaparin 80 MG/0.8 ML SYRINGE SQ SCH ×2 (11:37→23:21)
[2018-04-02] MEDS: Piperacillin/Tazobactam 3.375 GM in 0.9 % Sodium Chloride Mini Bag 100 ML IVPB SCH ×2 (11:37→20:34)
--- NOTE | 2018-04-02 12:26 | Electrocardiograph Report ---
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
[2018-04-02] MEDS ORDERED: Piperacillin/Tazobactam 3.375 GM VIAL ONE (17:25)
[2018-04-02] MEDS: Famotidine 20 MG/2 ML VIAL IVP SCH (17:38)
[2018-04-02] MEDS ORDERED: ALPRAZolam 1 MG TABLET PO PRN (23:11)
[2018-04-02] MEDS ORDERED: ALPRAZolam 1 MG TABLET PO ONE (23:11)
[2018-04-03] MEDS: Dexmedetomidine HCl 400 MCG/100 ML MLS IVC SCH ×4 (01:50→20:46)
[2018-04-03] MEDS: Piperacillin/Tazobactam 3.375 GM in 0.9 % Sodium Chloride Mini Bag 100 ML IVPB SCH ×3 (03:27→20:53)
[2018-04-03] MEDS: MethylPREDNISolone 40 MG/ML VIAL IVP SCH ×3 (03:28→20:54)
[2018-04-03] MEDS: Ipratropium/Albuterol Neb 3 ML IH SCH ×5 (03:53→20:09)
[2018-04-03 04:03] LABS: Hematocrit 22.5 % (35.3-44.9); Hemoglobin 7.5 g/dL (11.5-15.4); Lymphocytes # 0.1 K/mcL (0.6-4.6); Mean Corpuscular HGB Conc 33.3 g/dL (31.6-35.5); Mean Corpuscular Hemoglobin 30.2 pg (28.0-33.3); Mean Corpuscular Volume 90.7 fL (83.0-100.0); Mean Platelet Volume 9.7 fL (9.4-12.4); Monocytes % 6.7 %; Neutrophils # 0.1 K/mcL (1.6-8.9); Red Blood Count 2.48 M/mcL (3.82-4.97); Red Cell Distribution Width 15.1 % (11.5-14.5); Segmented Neutrophils % 53.3 %
[2018-04-03 04:06] LABS: Platelet Count 44 K/mcL (140-400)
[2018-04-03 04:08] LABS: Prothrombin Time 10.7 Seconds (9.4-12.1)
[2018-04-03 04:25] LABS: Alanine Aminotransferase 10 Units/L (7-52); Albumin 3.2 g/dL (3.5-5.7); Albumin/Globulin Ratio 1.8 (1.1-2.2); Alkaline Phosphatase 47 Units/L (34-104); Aspartate Amino Transferase 12 Units/L (13-39); BUN/Creatinine Ratio 37 (6-26); Bilirubin,Direct 0.1 mg/dL (0.0-0.2); Bilirubin,Indirect 0.5 mg/dL (0.0-1.2); Bilirubin,Total 0.6 mg/dL (0.3-1.0); Blood Urea Nitrogen 22 mg/dL (6-20); Calcium 8.6 mg/dL (8.6-10.3); Carbon Dioxide 43 mEq/L (23-29); Chloride 91 mEq/L (98-107); Globulin 1.8 g/dL (2.4-3.5); Glucose 152 mg/dL (70-105); Magnesium 1.5 mg/dL (1.6-2.6); Osmolality,Calculated 288 (280-300); Potassium 4.2 mEq/L (3.5-5.1); Sodium 136 mEq/L (136-145); eGFR For African Americans > 60 (> 60); eGFR For Non-African Americans > 60 (> 60)
[2018-04-03 04:28] LABS: Platelet Estimate Decreased (Normal)
[2018-04-03] MEDS: Famotidine 20 MG/2 ML VIAL IVP SCH ×2 (05:29→18:04)
--- NOTE | 2018-04-03 07:39 | Pulmonology Progress Note ---
<Douglas Coughlin - Last Filed: 04/03/18 16:30> Date of Encounter: 04/03/18 Time of Encounter: 07:39 Assessment and Plan (1) Sepsis Current Visit: No Status: Acute Systems based plan: - Patient seen and examined. - Labs, radiology, chart personally reviewed. AUTHOR AGENT: Intermittently sleepy, but likely related to her hypercapnia, otherwise responds appropriately Pulmonary: Severe COPD, which is further complicated by her malignancy. Pulmonary embolism cannot be ruled out, so she was started on Lovenox. She had bilateral DVT ultrasounds just 3 days ago that were normal. Once she is more stable and resuscitated we will likely get a CT of her chest to further evaluate for PE versus underlying pneumonia that may have been missed on chest x -ray Cardiovascular: Has been hemodynamically stable. We will monitor closely GI: Nothing by mouth Nutrition per dietary and GI prophylaxis per routine Heme: DVT prophylaxis covered currently by the therapeutic Lovenox ID: Continue antibiotics and plan to de-escalation Renal: Trend Endorcine: Monitor blood glucose Lines: all lines checked and no evidence of infections Skin: skin care to prevent pressure ulcers per nursing routine care Overall prognosis is poor 1. Neutropenia and pancytopenia, likely related to her receiving chemotherapy. She was also tachycardic. Chest x-ray showed a possible pneumonia versus atelectasis. Due to her history of cancer involving the lung. We will treat her aggressively as a healthcare acquired pneumonia with vancomycin and Zosyn and Levaquin, pending blood and respiratory cultures. 2. A voided massive IV fluid bolus due to concern of her volume overload with her already requiring BiPAP and would not want to have to intubate her with her severe COPD as she would be very difficult to liberate from the vent 3. We will continue antibiotics with plan to de-escalate 4. When necessary boluses of fluid if she becomes hypotensive 5. PE cannot be ruled out. She had bilateral DVT ultrasounds 3 days ago that were normal. However, with her malignancy this puts her at significantly increased risk of having thromboembolic disease , so she was started on a milligram per kilogram of Lovenox twice a day. We will monitor for any signs of bleeding, but negative currently Qualifiers: Sepsis type: sepsis due to unspecified organism Qualified Code(s): A41.9 - Sepsis, unspecified organism (2) Lung cancer Current Visit: Yes Status: Acute 1. 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 We will consult with oncology for further management Qualifiers: Laterality: unspecified laterality Lung location: unspecified part of lung Qualified Code(s): C34.90 - Malignant neoplasm of unspecified part of unspecified bronchus or lung (3) Acute and chronic respiratory failure with hypoxia Current Visit: Yes Status: Acute 1. Multifactorial related to severe COPD and new lung cancer. Patient was placed on BiPAP and had hypercapnic respiratory failure. We will continue BiPAP and wean as tolerated (4) DVT prophylaxis Current Visit: Yes Status: Acute 1. Lovenox for concern over PE, will de-escalate once PE is ruled out Objective PUL Vital signs: Last Vital Signs Temp 98.8 F 04/02/18 23:55 Pulse 67 04/03/18 06:05 Resp 26 04/03/18 06:05 BP 123/96 04/03/18 06:05 Pulse Ox 97 04/03/18 06:05 Results - Laboratory Findings CBC and BMP: 04/03/18 03:33 04/03/18 03:33 ABG ABG pH 7.33 pH Units (7.32-7.45) 04/02/18 03:37 ABG pCO2 87 mmHg (35-45) H* D 04/02/18 03:37 ABG pO2 103 mmHg (85-104) D 04/02/18 03:37 ABG O2 Saturation 97 % (95-98) 04/02/18 03:37 PT/INR, D-dimer PT 10.7 Seconds (9.4-12.1) 04/03/18 03:33 Abnormal lab findings: Abnormal lab results WBC 0.2 K/mcL (4.3-11.1) L* 04/03/18 03:33 RBC 2.48 M/mcL (3.82-4.97) L 04/03/18 03:33 Hgb 7.5 g/dL (11.5-15.4) L D 04/03/18 03:33 Hct 22.5 % (35.3-44.9) L 04/03/18 03:33 RDW 15.1 % (11.5-14.5) H 04/03/18 03:33 Plt Count 44 K/mcL (140-400) L 04/03/18 03:33 Neutrophils # 0.1 K/mcL (1.6-8.9) L 04/03/18 03:33 Lymphocytes # 0.1 K/mcL (0.6-4.6) L 04/03/18 03:33 Toxic Granulation Present (Not Present) A 04/02/18 03:35 Platelet Estimate Decreased (Normal) L 04/03/18 03:33 Anisocytosis 1+ (Not Present) A 04/02/18 03:35 ABG pCO2 87 mmHg (35-45) H* D 04/02/18 03:37 ABG HCO3 46 mEq/L (21-27) H 04/02/18 03:37 ABG Total CO2 49 mEq/L (20-26) H 04/02/18 03:37 ABG Base Excess 17 mEq/L (-2 to 3) H 04/02/18 03:37 Chloride 91 mEq/L (98-107) L 04/03/18 03:33 Carbon Dioxide 43 mEq/L (23-29) H* 04/03/18 03:33 BUN 22 mg/dL (6-20) H 04/03/18 03:33 Creatinine 0.59 mg/dL (0.60-1.20) L 04/03/18 03:33 BUN/Creatinine Ratio 37 (6-26) H 04/03/18 03:33 Glucose 152 mg/dL (70-105) H 04/03/18 03:33 POC Glucose 147 mg/dL (70-99) H 04/02/18 06:48 Magnesium 1.5 mg/dL (1.6-2.6) L 04/03/18 03:33 AST 12 Units/L (13-39) L 04/03/18 03:33 Serum Total Protein 5.0 g/dL (6.4-8.9) L 04/03/18 03:33 Albumin 3.2 g/dL (3.5-5.7) L 04/03/18 03:33 Globulin 1.8 g/dL (2.4-3.5) L 04/03/18 03:33 - Clinical Findings Intake & Output: Intake & Output 04/02/18 04/02/18 04/03/18 15:59 23:59 07:59 Intake Total 90 / 266 556 / 556 Output Total 600 / 600 0 / 0 Balance -510 / -334 556 / 556 Weight 75.6 kg Consult Discharge Plan - Plan Referrals: NONE,PCP [Primary Care Provider] - <Emmanuel Contreras - Last Filed: 04/03/18 16:46> Date of Encounter: 04/03/18 Objective PUL Vital signs: Last Vital Signs Temp 97.9 F 04/03/18 15:59 Pulse 71 04/03/18 15:00 Resp 24 04/03/18 15:00 BP 148/101 04/03/18 15:00 Pulse Ox 100 04/03/18 15:00 Results - Laboratory Findings CBC and BMP: 04/03/18 03:33 04/03/18 03:33 ABG ABG pH 7.33 pH Units (7.32-7.45) 04/02/18 03:37 ABG pCO2 87 mmHg (35-45) H* D 04/02/18 03:37 ABG pO2 103 mmHg (85-104) D 04/02/18 03:37 ABG O2 Saturation 97 % (95-98) 04/02/18 03:37 PT/INR, D-dimer PT 10.7 Seconds (9.4-12.1) 04/03/18 03:33 Abnormal lab findings: Abnormal lab results WBC 0.2 K/mcL (4.3-11.1) L* 04/03/18 03:33 RBC 2.48 M/mcL (3.82-4.97) L 04/03/18 03:33 Hgb 7.5 g/dL (11.5-15.4) L D 04/03/18 03:33 Hct 22.5 % (35.3-44.9) L 04/03/18 03:33 RDW 15.1 % (11.5-14.5) H 04/03/18 03:33 Plt Count 44 K/mcL (140-400) L 04/03/18 03:33 Neutrophils # 0.1 K/mcL (1.6-8.9) L 04/03/18 03:33 Lymphocytes # 0.1 K/mcL (0.6-4.6) L 04/03/18 03:33 Toxic Granulation Present (Not Present) A 04/02/18 03:35 Platelet Estimate Decreased (Normal) L 04/03/18 03:33 Anisocytosis 1+ (Not Present) A 04/02/18 03:35 ABG pCO2 87 mmHg (35-45) H* D 04/02/18 03:37 ABG HCO3 46 mEq/L (21-27) H 04/02/18 03:37 ABG Total CO2 49 mEq/L (20-26) H 04/02/18 03:37 ABG Base Excess 17 mEq/L (-2 to 3) H 04/02/18 03:37 Chloride 91 mEq/L (98-107) L 04/03/18 03:33 Carbon Dioxide 43 mEq/L (23-29) H* 04/03/18 03:33 BUN 22 mg/dL (6-20) H 04/03/18 03:33 Creatinine 0.59 mg/dL (0.60-1.20) L 04/03/18 03:33 BUN/Creatinine Ratio 37 (6-26) H 04/03/18 03:33 Glucose 152 mg/dL (70-105) H 04/03/18 03:33 POC Glucose 147 mg/dL (70-99) H 04/02/18 06:48 Magnesium 1.5 mg/dL (1.6-2.6) L 04/03/18 03:33 AST 12 Units/L (13-39) L 04/03/18 03:33 Serum Total Protein 5.0 g/dL (6.4-8.9) L 04/03/18 03:33 Albumin 3.2 g/dL (3.5-5.7) L 04/03/18 03:33 Globulin 1.8 g/dL (2.4-3.5) L 04/03/18 03:33 Ur Squamous Epith Cells Moderate per lpf (None-Few) H 04/03/18 12:18 - Clinical Findings Intake & Output: Intake & Output 04/03/18 04/03/18 04/03/18 07:59 15:59 23:59 Intake Total 556 / 556 359.9 / 359.9 Output Total 0 / 0 0 / 0 Balance 556 / 556 359.9 / 359.9 - Attending Attestation - Attending Attestation I saw and evaluated this patient and my medical decision-making was reviewed with the Resident Physician. I agree with the documented findings, disposition and treatment plan as described except to the extent set forth below. We independently had [id number] contact with the patient Except for few additional assesment Patient seen and examined at bedside Labs, radiology, chart personally reviewed. Management was reviewed during multidisciplinary critical care rounds. AUTHOR AGENT:Patient is conscious oriented , Patient is following commands , she is anxious still on precedex will add some low Benzodiazepine Pulm: Patient has acute exacerbation of COPD she started to vomit may be she aspirated led to flare up of COPD she was recently discharged that is yesterday from the hospital for COPD exacerbation , few days ago she was ruled out for PE at that time since the sudden onset of symptoms will empirically treat for PE . To continue steroids , bronchodilators , antibiotics for HAP . Patient has acceptable oxygenation BIPAP . Patient to continue BIPAP for Acute on Chronic hypoxic and hypercapnic respiratory failure. 04/03 Patient has Acute on Chronic hypercapnic respiratory failure stable for now will give her a break see how she does in the night she should go no BIPAP Cards: Patient is hemodynamically stable . FEN-GI:Can Advance diet as tolerated . Renal: Labs and output reviewed ID: Patient had tachycardia and tachypnea it all looks like her COPD flare up i doubt she has sepsis at this point . Since she is neutropenic will do Broad spectrum antibiotic and cultures . Patient lactate was normal 04/03 Patient is Neutropenic to continue broad spectrum antibiotics concern for aspiration pneumonia . Heme/Onc:Patient small cell lung ca now on chemo and radiation Endo: Glucose Monitored Integ/MSK: Skin Care per routine ICU Nursing Protocol to prevent ulcers. Lines: All lines examined without evidence of infection : Dispo: Critically ill high chance of endotracheal intubation . CODE:Full Code
[2018-04-03] MEDS: Levofloxacin 750 MG/150 ML 750 MG/150 ML BAG IVPB SCH (08:13)
[2018-04-03] MEDS ORDERED: Magnesium Sulfate 2 GM/100 ML PIGGYBACK IVPB ONE (08:35)
[2018-04-03] MEDS ORDERED: Isovue-370 500 ML INFUS..BTL IV ONE (10:38)
[2018-04-03] MEDS ORDERED: Lidocaine -MPF 1% 2 ML VIAL ID PRN (10:41)
--- NOTE | 2018-04-03 10:45 | Discharge Summary ---
Orders not resulted at time of discharge: Pending orders 04/03/18 10:38 CTA chest [CT angio chest] [CT] Routine 04/03/18 22:00 Vancomycin,Trough Timed Date of Encounter: 04/03/18 Hospital course: Ms. Marie is a 52 year old female - Time Spent with Patient Total time spent providing and/or coordinating discharge services: - Discharge Medications Home Medications: Albuterol Neb [AccuNeb] 0.63 mg IH Q6H PRN 11/27/17 [History] Albuterol Sulfate [Ventolin Hfa] 2 puff IH Q4H PRN 11/27/17 [History] Atenolol [Tenormin] 25 mg PO DAILY 11/27/17 [History] Diclofenac Sodium [Voltaren] 1 appl TP 5XD 11/27/17 [History] Gabapentin [Neurontin] 600 mg PO TID 11/27/17 [History] Ipratropium/Albuterol Sulfate [Combivent Respimat 20-100 Mcg] 1 puff IH QID [History] Loratadine [Claritin] 10 mg PO DAILY 11/27/17 [History] Montelukast [Singulair] 10 mg PO HS 11/27/17 [History] Omeprazole [PriLOSEC] 20 mg PO DAILY 11/27/17 [History] Oxybutynin [Ditropan] 2.5 mg PO DAILY 11/27/17 [History] Oxygen 2 l NS AD 11/27/17 [History] Spironolactone [Aldactone] 25 mg PO BID 11/27/17 [History] DULoxetine [Cymbalta] 30 mg PO DAILY 11/29/17 [History] Ipratropium/Albuterol Neb [Duoneb] 3 ml IH [id number] PRN #100 inhsol 02/25/18 [Rx] Docusate [Colace] 100 mg PO BID PRN capsule 03/07/18 [Rx] ALPRAZolam [Xanax 0.5 MG Tablet] 0.5 mg PO QID PRN 30 Days #120 tablet 03/17/18 [Rx] OxyCODONE Immed Rel [Roxicodone 5 MG] 5 - 10 mg PO Q4H PRN 30 Days #240 tablet 03/17/18 [Rx] levoFLOXacin [Levaquin] 500 mg PO DAILY #3 tablet 04/01/18 [Rx] predniSONE [PredniSONE] 40 mg PO DAILY 2 Days #4 tablet 04/01/18 [Rx] Fluticasone/Salmeterol [Advair 250-50 Diskus] 1 puff IH BID 04/02/18 [History] Fluticasone/Vilanterol [Breo Ellipta 100-25 Mcg INH] 1 puff IH DAILY 04/02/18 [ History] Nicotine Patch [Nicoderm] 21 mg TD DAILY 04/02/18 [History] Allergies/Adverse Reactions: 3 Allergy/AdvReac Type Severity Reaction Status Date / Time budesonide [From Symbicort] AdvReac Chest Pain Verified 03/04/18 07:38 Formoterol [From Symbicort] AdvReac Chest Pain Verified 03/04/18 07:38 Date of admission: 04/02/18 21:59 Primary care physician: PCP NONE Consults: 04/03/18 07:56 Consult to Oncology [CONS] Stat Consulting Provider: [facility] Reason for Consult: R small cell lung CA, currently getting rad, neutropenia Time Notified: 07:56 Call Completed: Yes - Constitutional Vitals: Temp Pulse Resp BP Pulse Ox 97.4 F L 75 30 123/76 98 04/03/18 08:03 04/03/18 08:00 04/03/18 08:03 04/03/18 08:03 04/03/18 08:03 - Patient Status Condition: Critical - Discharge Instructions Follow Up With: NONE,PCP [Primary Care Provider] -
[2018-04-03] MEDS ORDERED: Artificial Tears SOLN 15 ML BOTTLE BOTH EYES PRN (11:46)
[2018-04-03] MEDS: *HR* Enoxaparin 80 MG/0.8 ML SYRINGE SQ SCH (11:57)
[2018-04-03] MEDS: *HR* LORazepam 2 MG/ML VIAL IVP PRN (11:57)
[2018-04-03 12:54] LABS: Bilirubin,Urine Negative (Negative); Blood,Urine Negative (Negative); Clarity,Urine Clear (Clear); Color,Urine Yellow (Yellow); Glucose,Urine (UA) Normal (Normal); Ketones,Urine Negative (Negative); Leukocyte Esterase,Urine Negative (Negative); Nitrite,Urine Negative (Negative); PH,Urine 7.5 pH Units (5.0-8.0); Protein,Urine Trace mg/dL (Neg-Trace); Specific Gravity,Urine 1.019 (1.010-1.025); Urobilinogen,Urine Normal (Normal)
[2018-04-03 12:59] LABS: Bacteria,Urine None Seen per hpf (None-Few); Hyaline Casts,Urine None Seen per lpf (None-Few); RBC,Urine 0-3 per hpf (0-3); Squamous Epithelial Cell,Urine Moderate per lpf (None-Few); WBC,Urine 0-3 per hpf (0-3)
--- NOTE | 2018-04-03 13:28 | Oncology Inp Consult Note ---
Date of Encounter: 04/03/18 Time of Encounter: 11:45 Assessment and Plan (1) Small cell carcinoma Status: Chronic Assessment and plan: Current therapy includes concurrent chemoradiation with Carboplatin and Etoposide. Treatment placed on hold until stable and acute issues resolve. She is on bipap for her hypercapnic respiratory failure with the plan to wean as tolerated. (2) Neutropenia Status: Acute Assessment and plan: Pancytopenia with severe neutropenia ANC 100 secondary to dose reduced carboplatin/etoposide s/p cycle #3 on 03/24/2018. Treatment to remain supportive, no role for CSF at this time. Agree with broad spectrum ATB coverage with de-escalation per ICU provider team. She has been afebrile since admission. She has no evidence of bleeding, her coags are normal. Qualifiers: Neutropenia type: unspecified Qualified Code(s): D70.9 - Neutropenia, unspecified (3) DVT prophylaxis Status: Acute Assessment and plan: Placed on lovenox 1mg/kg/dose Q12 hours per ICU team with the plan for CTA today to rule out PE. If CTA negative for PE agree with de-escalation of lovenox to prophylactic dose. - Data of Consult Patient: known to practice within the last 3 years Consult date: 04/03/18 Requesting Physician: Bud Munoz MD Primary Care Provider: PCP NONE - Consult Narrative Reason for consult: Small cell lung cancer History of present illness: Ms. Marie is a 52 year old female diagnosed with locally advanced versus metastatic small cell lung cancer initially diagnosed 01/07/18 by biopsy and BAL. She has a nonspecific left adrenal nodule by imaging 12/06/2017. She has a history of emphysema on chronic oxygen and tobacco abuse. Current therapy includes concurrent chemoradiation with Carboplatin and Etoposide initiated 02/03. She received cycle #3 on 03/24/18 with dose reduced etoposide/carboplatin secondary to toxicity from therapy. She was recently discharged from the hospital for COPD exacerbation for about one day prior to her presentation to the ER on 04/02/2018. She presented to the ER via squad for altered mental status and increased SOB. Per ER documentation she was noted to be drowsy but was easily aroused, in severe respiratory distress with a CO2 of 107 on arrival. Her CO2 quickly responded to a level of 42 with application of bipap. CXR reveals Right basilar atelectasis or, less likely, pneumonia. She was admitted to ICU with sepsis and hypercapnic respiratory failure on bipap. Past Med Surg Social Fam HX - Past Medical History Medical history: asthma, cancer, COPD, hyperlipidemia, hypertension Additional medical history: lung CA Psychiatric history: anxiety, depression - Past Surgical History Surgical History: appendectomy, , cholecystectomy Additional surgical history: x3 - Social History Smoking Status: Former smoker Smokeless Tobacco Status: No Alcohol use: none Drug use: none - Family History Mother Living Status: Hx Family Cardiac Disorders: No Hx Family Respiratory Disorders: Yes (COPD) Hx Family Cancer: No Hx Family GI Disorders: Yes (hernia) Hx Family Endocrine Disorder: Yes (thyriod) Hx Family Neuromuscular Disorders: No Hx Family Neurologic Disorders: No Hx Family HEENT Disorders: No Hx Family Autoimmune Disorders: No Father Living Status: Hx Family Cardiac Disorders: Yes Hx Family Respiratory Disorders: Yes (COPD) Hx Family Cancer: Yes (colon cancer) Hx Family GI Disorders: No Hx Family Endocrine Disorder: No Hx Family Neuromuscular Disorders: No Hx Family Neurologic Disorders: No Hx Family HEENT Disorders: No Hx Family Autoimmune Disorders: No Medications and Allergies Albuterol Neb [AccuNeb] 0.63 mg IH Q6H PRN 11/27/17 [History] Albuterol Sulfate [Ventolin Hfa] 2 puff IH Q4H PRN 11/27/17 [History] Atenolol [Tenormin] 25 mg PO DAILY 11/27/17 [History] Diclofenac Sodium [Voltaren] 1 appl TP 5XD 11/27/17 [History] Gabapentin [Neurontin] 600 mg PO TID 11/27/17 [History] Ipratropium/Albuterol Sulfate [Combivent Respimat 20-100 Mcg] 1 puff IH QID [History] Loratadine [Claritin] 10 mg PO DAILY 11/27/17 [History] Montelukast [Singulair] 10 mg PO HS 11/27/17 [History] Omeprazole [PriLOSEC] 20 mg PO DAILY 11/27/17 [History] Oxybutynin [Ditropan] 2.5 mg PO DAILY 11/27/17 [History] Oxygen 2 l NS AD 11/27/17 [History] Spironolactone [Aldactone] 25 mg PO BID 11/27/17 [History] DULoxetine [Cymbalta] 30 mg PO DAILY 11/29/17 [History] Ipratropium/Albuterol Neb [Duoneb] 3 ml IH [id number] PRN #100 inhsol 02/25/18 [Rx] Docusate [Colace] 100 mg PO BID PRN capsule 03/07/18 [Rx] ALPRAZolam [Xanax 0.5 MG Tablet] 0.5 mg PO QID PRN 30 Days #120 tablet 03/17/18 [Rx] OxyCODONE Immed Rel [Roxicodone 5 MG] 5 - 10 mg PO Q4H PRN 30 Days #240 tablet 03/17/18 [Rx] levoFLOXacin [Levaquin] 500 mg PO DAILY #3 tablet 04/01/18 [Rx] predniSONE [PredniSONE] 40 mg PO DAILY 2 Days #4 tablet 04/01/18 [Rx] Fluticasone/Salmeterol [Advair 250-50 Diskus] 1 puff IH BID 04/02/18 [History] Fluticasone/Vilanterol [Breo Ellipta 100-25 Mcg INH] 1 puff IH DAILY 04/02/18 [ History] Nicotine Patch [Nicoderm] 21 mg TD DAILY 04/02/18 [History] 3 Allergy/AdvReac Type Severity Reaction Status Date / Time budesonide [From Symbicort] AdvReac Chest Pain Verified 03/04/18 07:38 Formoterol [From Symbicort] AdvReac Chest Pain Verified 03/04/18 07:38 Constitutional: Present: fatigue, weakness. Absent: anorexia, chills, fever(s) , weight loss Eyes: Absent: change in vision Nose, mouth and throat: Absent: dysphagia Cardiovascular: Absent: chest pain Respiratory: Present: as per HPI, cough, dyspnea, wheezing. Absent: hemoptysis Gastrointestinal: Absent: abdominal pain, nausea, vomiting Musculoskeletal: Present: muscle weakness Integumentary: Absent: wounds Neurological: Absent: focal weakness, frequent falls Hematologic/Lymphatic: Present: as per HPI Oncology - Exam - Constitutional Vitals: Temp Pulse Resp BP Pulse Ox 97.5 F L 75 30 123/76 98 04/03/18 11:59 04/03/18 08:00 04/03/18 08:03 04/03/18 08:03 04/03/18 08:03 General appearance: cooperative, mild distress, no febrile - Head Head exam: Present: atraumatic - ENT ENT exam: Present: mucous membranes moist - Respiratory Respiratory exam: Present: decreased breath sounds, wheezes. Absent: respiratory distress Additional comments: mild distress, tachypneic, on high flow O2 taking break from bipap - Cardiovascular Cardiovascular exam: Present: RRR, +S1, +S2 - GI/Abdominal GI/Abdominal exam: Present: normal bowel sounds, soft. Absent: guarding, rebound, tenderness - Extremities Exam Extremities exam: Absent: calf tenderness - Neurological Exam Neurological exam: Present: alert, oriented X3, no focal deficits, strengths equal and symetr throughout - Psychiatric Psychiatric exam: Present: agitated - Skin Skin exam: Present: dry, intact, normal color, warm Consult Discharge Plan - Plan Referrals: NONE,PCP [Primary Care Provider] -
[2018-04-04] MEDS: Ipratropium/Albuterol Neb 3 ML IH SCH ×7 (00:11→23:56)
[2018-04-04 03:52] LABS: Hematocrit 21.7 % (35.3-44.9); Hemoglobin 7.3 g/dL (11.5-15.4); Lymphocytes % 21.4 %; Mean Corpuscular HGB Conc 33.6 g/dL (31.6-35.5); Mean Corpuscular Volume 86.1 fL (83.0-100.0); Mean Platelet Volume 10.9 fL (9.4-12.4); Monocytes % 14.3 %; Neutrophils # 0.1 K/mcL (1.6-8.9); Red Blood Count 2.52 M/mcL (3.82-4.97); Red Cell Distribution Width 14.9 % (11.5-14.5); Segmented Neutrophils % 64.3 %
[2018-04-04 03:56] LABS: Platelet Count 39 K/mcL (140-400)
[2018-04-04 04:04] LABS: BUN/Creatinine Ratio 35 (6-26); Blood Urea Nitrogen 20 mg/dL (6-20); Calcium 8.4 mg/dL (8.6-10.3); Carbon Dioxide 39 mEq/L (23-29); Chloride 91 mEq/L (98-107); Glucose 159 mg/dL (70-105); Magnesium 1.7 mg/dL (1.6-2.6); Osmolality,Calculated 284 (280-300); Potassium 4.2 mEq/L (3.5-5.1); Sodium 134 mEq/L (136-145); eGFR For African Americans > 60 (> 60); eGFR For Non-African Americans > 60 (> 60)
[2018-04-04] MEDS: MethylPREDNISolone 40 MG/ML VIAL IVP SCH ×3 (04:14→20:24)
[2018-04-04] MEDS: Piperacillin/Tazobactam 3.375 GM in 0.9 % Sodium Chloride Mini Bag 100 ML IVPB SCH ×3 (04:15→18:34)
[2018-04-04 04:32] LABS: Large Platelets Present (Not Present); Platelet Estimate Decreased (Normal)
[2018-04-04] MEDS: Dexmedetomidine HCl 400 MCG/100 ML MLS IVC SCH ×2 (05:30→20:16)
[2018-04-04] MEDS: Famotidine 20 MG/2 ML VIAL IVP SCH ×2 (05:31→18:34)
[2018-04-04] MEDS: *HR* LORazepam 2 MG/ML VIAL IVP PRN ×2 (05:31→23:39)
[2018-04-04] MEDS: *HR* Enoxaparin 40 MG/0.4 ML SYRINGE SQ SCH (08:20)
[2018-04-04] MEDS: Levofloxacin 750 MG/150 ML 750 MG/150 ML BAG IVPB SCH (08:20)
[2018-04-04] MEDS ORDERED: *HR* OxyCODONE Immed Rel 5 MG TABLET PO PRN (09:46)
[2018-04-04] MEDS: Gabapentin 300 MG CAPSULE PO SCH ×3 (10:02→20:24)
--- NOTE | 2018-04-04 13:55 | Pulmonology Progress Note ---
<Douglas Coughlin - Last Filed: 04/04/18 13:53> Date of Encounter: 04/04/18 Time of Encounter: 07:58 Assessment and Plan (1) Sepsis Current Visit: No Status: Acute Systems based plan: - Patient seen and examined. - Labs, radiology, chart personally reviewed. 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 CTA- chest was negative for PE. Will continue txt for PNA Cardiovascular: Has been hemodynamically stable. We will monitor closely GI: Nutrition per dietary and GI prophylaxis per routine Heme: DVT prophylaxis covered currently by the therapeutic Lovenox ID: Worsening neutropenia, thrombocytopenia, and mild anemia. Oncology following as welll, did not recommend and stimulating factor at this time. Continue antibiotics and plan to de-escalation Renal: Trend Endorcine: Monitor blood glucose Lines: all lines checked and no evidence of infections Skin: skin care to prevent pressure ulcers per nursing routine care Overall prognosis is poor 1. Worsening Neutropenia, likely related to her receiving chemotherapy but superimposed PNA cannot be ruled out, continue current triple ABX. Plan to deescalate once cultures result. 2. When necessary boluses of fluid if she becomes hypotensive Qualifiers: Sepsis type: sepsis due to unspecified organism Qualified Code(s): A41.9 - Sepsis, unspecified organism (2) Lung cancer Current Visit: Yes Status: Acute 1. 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 Oncology following Qualifiers: Laterality: unspecified laterality Lung location: unspecified part of lung Qualified Code(s): C34.90 - Malignant neoplasm of unspecified part of unspecified bronchus or lung (3) Acute and chronic respiratory failure with hypoxia Current Visit: Yes Status: Acute 1. Multifactorial related to severe COPD and new lung cancer. Patient was placed on BiPAP due hypercapnic respiratory failure. We will continue BiPAP at night but patient is refusing. (4) DVT prophylaxis Current Visit: Yes Status: Acute 1. Lovenox for concern over PE, will de-escalate once PE is ruled out 2. Is becoming more thrombocytopenic and is plts < 30, will discontinue lovenox and reevaluate. Subjective Principal diagnosis: sepsis Interval history: Doing well overnight, is being noncompliant with her BiPAP at night. Has been quite anxious Objective PUL Vital signs: Last Vital Signs Temp 99.2 F 04/04/18 11:37 Pulse 110 04/04/18 12:00 Resp 24 04/04/18 13:00 BP 141/92 04/04/18 12:00 Pulse Ox 96 04/04/18 13:00 General appearance: other (anxious ) Eyes: nonicteric ENT: oropharynx dry Neck: supple Effort: normal Auscultation: bilateral: diminished breath sounds Cardiovascular: regular rate and rhythm Gastrointestinal: normoactive bowel sounds, non-distended Integumentary: normal Extremities: no cyanosis Musculoskeletal: no deformities normal mental status, non-focal exam anxious Results - Laboratory Findings CBC and BMP: 04/04/18 03:25 04/04/18 03:25 ABG ABG pH 7.33 pH Units (7.32-7.45) 04/02/18 03:37 ABG pCO2 87 mmHg (35-45) H* D 04/02/18 03:37 ABG pO2 103 mmHg (85-104) D 04/02/18 03:37 ABG O2 Saturation 97 % (95-98) 04/02/18 03:37 PT/INR, D-dimer PT 10.7 Seconds (9.4-12.1) 04/03/18 03:33 Abnormal lab findings: Abnormal lab results WBC 0.1 K/mcL (4.3-11.1) L* 04/04/18 03:25 RBC 2.52 M/mcL (3.82-4.97) L 04/04/18 03:25 Hgb 7.3 g/dL (11.5-15.4) L 04/04/18 03:25 Hct 21.7 % (35.3-44.9) L 04/04/18 03:25 RDW 14.9 % (11.5-14.5) H 04/04/18 03:25 Plt Count 39 K/mcL (140-400) L 04/04/18 03:25 Neutrophils # 0.1 K/mcL (1.6-8.9) L 04/04/18 03:25 Lymphocytes # 0.0 K/mcL (0.6-4.6) L 04/04/18 03:25 Toxic Granulation Present (Not Present) A 04/02/18 03:35 Platelet Estimate Decreased (Normal) L 04/04/18 03:25 Large Platelets Present (Not Present) A 04/04/18 03:25 Anisocytosis 1+ (Not Present) A 04/02/18 03:35 ABG pCO2 87 mmHg (35-45) H* D 04/02/18 03:37 ABG HCO3 46 mEq/L (21-27) H 04/02/18 03:37 ABG Total CO2 49 mEq/L (20-26) H 04/02/18 03:37 ABG Base Excess 17 mEq/L (-2 to 3) H 04/02/18 03:37 Sodium 134 mEq/L (136-145) L 04/04/18 03:25 Chloride 91 mEq/L (98-107) L 04/04/18 03:25 Carbon Dioxide 39 mEq/L (23-29) H 04/04/18 03:25 Creatinine 0.57 mg/dL (0.60-1.20) L 04/04/18 03:25 BUN/Creatinine Ratio 35 (6-26) H 04/04/18 03:25 Glucose 159 mg/dL (70-105) H 04/04/18 03:25 POC Glucose 147 mg/dL (70-99) H 04/02/18 06:48 Calcium 8.4 mg/dL (8.6-10.3) L 04/04/18 03:25 AST 12 Units/L (13-39) L 04/03/18 03:33 Serum Total Protein 5.0 g/dL (6.4-8.9) L 04/03/18 03:33 Albumin 3.2 g/dL (3.5-5.7) L 04/03/18 03:33 Globulin 1.8 g/dL (2.4-3.5) L 04/03/18 03:33 Ur Squamous Epith Cells Moderate per lpf (None-Few) H 04/03/18 12:18 Vancomycin Trough 15 mcg/mL (5-10) H 04/03/18 21:58 - Microbiology Findings Microbiology Findings: Microbiology, Last 48 Hours 04/03/18 20:35 Sputum Culture - Preliminary Sputum - Clinical Findings Intake & Output: Intake & Output 04/03/18 04/04/18 04/04/18 23:59 07:59 15:59 Intake Total 304 / 304 450 / 450 514 / 514 Output Total 750 / 750 900 / 900 Balance 304 / 304 -300 / -300 -386 / -386 Weight 72.8 kg Consult Discharge Plan - Plan Referrals: NONE,PCP [Primary Care Provider] - <Emmanuel Contreras - Last Filed: 04/04/18 22:03> Date of Encounter: 04/04/18 Objective PUL Vital signs: Last Vital Signs Temp 98.5 F 04/04/18 19:44 Pulse 105 04/04/18 21:01 Resp 21 04/04/18 20:47 BP 122/81 04/04/18 21:01 Pulse Ox 96 04/04/18 20:47 Results - Laboratory Findings CBC and BMP: 04/04/18 03:25 04/04/18 03:25 ABG ABG pH 7.33 pH Units (7.32-7.45) 04/02/18 03:37 ABG pCO2 87 mmHg (35-45) H* D 04/02/18 03:37 ABG pO2 103 mmHg (85-104) D 04/02/18 03:37 ABG O2 Saturation 97 % (95-98) 04/02/18 03:37 PT/INR, D-dimer PT 10.7 Seconds (9.4-12.1) 04/03/18 03:33 Abnormal lab findings: Abnormal lab results WBC 0.1 K/mcL (4.3-11.1) L* 04/04/18 03:25 RBC 2.52 M/mcL (3.82-4.97) L 04/04/18 03:25 Hgb 7.3 g/dL (11.5-15.4) L 04/04/18 03:25 Hct 21.7 % (35.3-44.9) L 04/04/18 03:25 RDW 14.9 % (11.5-14.5) H 04/04/18 03:25 Plt Count 39 K/mcL (140-400) L 04/04/18 03:25 Neutrophils # 0.1 K/mcL (1.6-8.9) L 04/04/18 03:25 Lymphocytes # 0.0 K/mcL (0.6-4.6) L 04/04/18 03:25 Toxic Granulation Present (Not Present) A 04/02/18 03:35 Platelet Estimate Decreased (Normal) L 04/04/18 03:25 Large Platelets Present (Not Present) A 04/04/18 03:25 Anisocytosis 1+ (Not Present) A 04/02/18 03:35 ABG pCO2 87 mmHg (35-45) H* D 04/02/18 03:37 ABG HCO3 46 mEq/L (21-27) H 04/02/18 03:37 ABG Total CO2 49 mEq/L (20-26) H 04/02/18 03:37 ABG Base Excess 17 mEq/L (-2 to 3) H 04/02/18 03:37 Sodium 134 mEq/L (136-145) L 04/04/18 03:25 Chloride 91 mEq/L (98-107) L 04/04/18 03:25 Carbon Dioxide 39 mEq/L (23-29) H 04/04/18 03:25 Creatinine 0.57 mg/dL (0.60-1.20) L 04/04/18 03:25 BUN/Creatinine Ratio 35 (6-26) H 04/04/18 03:25 Glucose 159 mg/dL (70-105) H 04/04/18 03:25 POC Glucose 147 mg/dL (70-99) H 04/02/18 06:48 Calcium 8.4 mg/dL (8.6-10.3) L 04/04/18 03:25 AST 12 Units/L (13-39) L 04/03/18 03:33 Serum Total Protein 5.0 g/dL (6.4-8.9) L 04/03/18 03:33 Albumin 3.2 g/dL (3.5-5.7) L 04/03/18 03:33 Globulin 1.8 g/dL (2.4-3.5) L 04/03/18 03:33 Ur Squamous Epith Cells Moderate per lpf (None-Few) H 04/03/18 12:18 Vancomycin Trough 15 mcg/mL (5-10) H 04/03/18 21:58 - Microbiology Findings Microbiology Findings: Microbiology, Last 48 Hours 04/03/18 20:35 Sputum Culture - Preliminary Sputum - Clinical Findings Intake & Output: Intake & Output 04/04/18 04/04/18 04/04/18 07:59 15:59 23:59 Intake Total 450 / 450 614 / 614 86 / 86 Output Total 750 / 750 1100 / 1100 1050 / 1050 Balance -300 / -300 -486 / -486 -964 / -964 Weight 72.8 kg - Attending Attestation - Attending Attestation I saw and evaluated this patient and my medical decision-making was reviewed with the Resident Physician. I agree with the documented findings, disposition and treatment plan as described except to the extent set forth below. We independently had [id number] contact with the patient Except for few additional assesment Patient seen and examined at bedside Labs, radiology, chart personally reviewed. Management was reviewed during multidisciplinary critical care rounds. BRICK MOLDER HAND:Patient is conscious oriented , Patient is following commands , she is anxious still on precedex . Pulm: Patient has acute exacerbation of COPD she started to vomit may be she aspirated led to flare up of COPD she was recently discharged that is yesterday from the hospital for COPD exacerbation , few days ago she was ruled out for PE at that time since the sudden onset of symptoms will empirically treat for PE . To continue steroids , bronchodilators , antibiotics for HAP . Patient has acceptable oxygenation BIPAP . Patient to continue BIPAP for Acute on Chronic hypoxic and hypercapnic respiratory failure. 04/03 Patient has Acute on Chronic hypercapnic respiratory failure stable for now will give her a break see how she does in the night she should go no BIPAP 04/04 Acute on Chronic hypercapnic respiratory patient wore few hrs of BIPAP in the night Cards: Patient is hemodynamically stable . FEN-GI:Can Advance diet as tolerated . Renal: Labs and output reviewed ID: Patient had tachycardia and tachypnea it all looks like her COPD flare up i doubt she has sepsis at this point . Since she is neutropenic will do Broad spectrum antibiotic and cultures . Patient lactate was normal 04/03 Patient is Neutropenic to continue broad spectrum antibiotics concern for aspiration pneumonia . Heme/Onc:Patient small cell lung ca now on chemo and radiation Endo: Glucose Monitored Integ/MSK: Skin Care per routine ICU Nursing Protocol to prevent ulcers. Lines: All lines examined without evidence of infection : Dispo: Critically ill high chance of endotracheal intubation . CODE:Full Code
--- NOTE | 2018-04-04 14:55 | Oncology Inp Progress Note ---
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 Treatment placed on hold until stable and acute issues resolve-tentatively resume 04/14 She has needed intermittent bipap for her hypercapnic respiratory failure with the plan to wean as tolerated. (2) Neutropenia Current Visit: Yes Status: Acute Assessment and plan: Continued to have pancytopenia with severe neutropenia ANC 100 secondary to marilynn from carboplatin/etoposide s/p cycle #3 on 03/24/2018. Treatment to remain supportive, no role for CSF at this time-patient is receiving concurrent chemoradiation and she has no indication of severe sepsis at this time. Agree with broad spectrum ATB coverage with de-escalation per ICU provider team. She has been afebrile since admission. She has no evidence of bleeding, her coags are normal. Qualifiers: Neutropenia type: unspecified Qualified Code(s): D70.9 - Neutropenia, unspecified (3) DVT prophylaxis Current Visit: No Status: Acute Assessment and plan: CTA negative for PE ICU team has placed lovenox on hold due to her down trending thrombocytopenia secondary to chemotherapy Platelet count 39 today, hgb stable Once thrombocytopenia stabilizes or improves, will then plan to resume anticoagulation for DVT prophylaxis Oncology: Subj Interval history: Ms. Marie is sating well on nasal cannula. She has been off of the bipap since about 10 am yesterday. On exam she remains in mild distress and tachypneic. She has recently received pain medication which is helping to relieve her back pain. - Constitutional Vitals: Vital Signs Temp Pulse Resp BP Pulse Ox 04/04/18 13:00 24 96 04/04/18 12:00 110 18 141/92 94 04/04/18 11:37 99.2 F 04/04/18 11:35 16 98 04/04/18 11:00 98 24 126/78 94 04/04/18 09:00 110 26 151/98 97 04/04/18 08:10 98.2 F 04/04/18 08:00 78 04/04/18 07:55 16 96 04/04/18 07:00 82 24 148/88 97 04/04/18 06:00 79 26 138/91 96 04/04/18 05:00 79 26 146/97 95 04/04/18 04:54 97.9 F 04/04/18 04:05 28 99 04/04/18 04:00 68 25 155/96 100 04/04/18 03:00 71 26 154/84 98 04/04/18 02:00 69 26 148/95 97 04/04/18 01:00 70 19 153/100 98 04/04/18 00:51 97.8 F 04/04/18 00:12 28 97 04/04/18 00:00 73 26 142/89 97 04/03/18 23:00 66 24 153/88 97 04/03/18 22:00 69 16 155/95 96 04/03/18 21:00 73 18 141/90 92 04/03/18 20:32 98.4 F 04/03/18 20:09 16 98 04/03/18 20:00 73 22 150/97 100 04/03/18 19:00 70 24 152/99 98 04/03/18 18:00 77 18 128/78 95 04/03/18 17:00 73 22 159/89 95 04/03/18 15:59 97.9 F 04/03/18 15:55 18 100 04/03/18 15:00 71 24 148/101 100 Intake and Output 04/03/18 04/04/18 04/04/18 23:59 07:59 15:59 Intake Total 304 / 304 450 / 450 514 / 514 Output Total 750 / 750 900 / 900 Balance 304 / 304 -300 / -300 -386 / -386 Intake: IV Fluids 304 / 304 450 / 450 514 / 514 PRECEDEX Premix 400 mcg In 100 100 / 100 100 / 100 14 / 14 ml @ 0.2 MCG/KG/HR 3.78 mls/hr IVC .Q24H [facility] Rx#:[id number] Levaquin Premix 750mg/150 mL 150 / 150 750 mg In 150 ml @ 100 mls/hr IVPB DAILY [facility] Rx#:[id number] Zosyn 3.375 GM In 0.9 % Sodium 100 / 100 100 / 100 100 / 100 Chloride (Mini-Bag +) 100 ML @ 25 mls/hr IVPB Q8H [facility] Rx#: [id number] Vancocin 1,000 MG In 0.9 % 250 / 250 250 / 250 Sodium Chloride 250 ML @ 166. 667 mls/hr IVPB Q12H [facility] Rx#: [id number] Oral 0 / 0 0 / 0 Output: Urine 750 / 750 900 / 900 Other: # Voids 1 2 Weight 72.8 kg Patient Weight 04/04/18 23:59 Weight 72.8 kg General appearance: cooperative, mild distress, no febrile - Head Head exam: Present: atraumatic - ENT ENT exam: Present: mucous membranes moist - Respiratory Respiratory exam: Present: decreased breath sounds, wheezes. Absent: respiratory distress - Cardiovascular Cardiovascular exam: Present: RRR, +S1, +S2 - GI/Abdominal GI/Abdominal exam: Present: normal bowel sounds, soft. Absent: guarding, rebound, tenderness - Extremities Exam Extremities exam: Present: normal inspection. Absent: calf tenderness - Neurological Exam Neurological exam: Present: alert, oriented X3, no focal deficits, strengths equal and symetr throughout - Psychiatric Psychiatric exam: Present: normal affect, normal mood - Skin Skin exam: Present: dry, intact, normal color, warm Oncology: Obj Data - Labs CBC & Chem 7: 04/04/18 03:25 04/04/18 03:25 Labs: Laboratory Results - last 24 hr 04/03/18 04/04/18 04/04/18 21:58 03:25 03:25 WBC 0.1 L* RBC 2.52 L Hgb 7.3 L Hct 21.7 L MCV 86.1 MCH 29.0 MCHC 33.6 RDW 14.9 H Plt Count 39 L MPV 10.9 Immature Gran % 0.0 Seg Neutrophils % 64.3 Lymphocytes % 21.4 Monocytes % 14.3 Eosinophils % 0.0 Basophils % 0.0 Neutrophils # 0.1 L Lymphocytes # 0.0 L Monocytes # 0.0 Eosinophils # 0.0 Basophils # 0.0 Platelet Estimate Decreased L Large Platelets Present A Sodium 134 L Potassium 4.2 Chloride 91 L Carbon Dioxide 39 H BUN 20 Creatinine 0.57 L Est GFR ( Amer) > 60 Est GFR (Non-Af Amer) > 60 BUN/Creatinine Ratio 35 H Glucose 159 H Calculated Osmolality 284 Calcium 8.4 L Magnesium 1.7 Vancomycin Trough 15 H - Impressions Impressions Chest CTA 04/03/18 10:38 IMPRESSION: No evidence of pulmonary embolism or acute pulmonary abnormality. D/ / 04/03/2018 13:08:55 Phuc Andre MD / anjali Interpreting Provider: Phuc Andre MD - ABG Interpretation ABG results: ABG ABG pH 7.33 pH Units (7.32-7.45) 04/02/18 03:37 ABG pCO2 87 mmHg (35-45) H* D 04/02/18 03:37 ABG pO2 103 mmHg (85-104) D 04/02/18 03:37 ABG O2 Saturation 97 % (95-98) 04/02/18 03:37 PT/INR, D-dimer PT 10.7 Seconds (9.4-12.1) 04/03/18 03:33 Consult Discharge Plan - Plan Referrals: NONE,PCP [Primary Care Provider] -
[2018-04-04] MEDS: *HR* OxyCODONE Immed Rel 5 MG TABLET PO PRN ×2 (15:02→20:24)
[2018-04-05] MEDS: MethylPREDNISolone 40 MG/ML VIAL IVP SCH ×2 (03:17→10:18)
[2018-04-05] MEDS: Piperacillin/Tazobactam 3.375 GM in 0.9 % Sodium Chloride Mini Bag 100 ML IVPB SCH ×3 (03:17→18:00)
[2018-04-05 03:47] LABS: Hematocrit 21.7 % (35.3-44.9); Hemoglobin 7.3 g/dL (11.5-15.4); Lymphocytes % 30.8 %; Mean Corpuscular HGB Conc 33.6 g/dL (31.6-35.5); Mean Corpuscular Hemoglobin 29.9 pg (28.0-33.3); Mean Corpuscular Volume 88.9 fL (83.0-100.0); Monocytes % 30.8 %; Red Blood Count 2.44 M/mcL (3.82-4.97); Red Cell Distribution Width 15.5 % (11.5-14.5); Segmented Neutrophils % 38.4 %
[2018-04-05 03:55] LABS: BUN/Creatinine Ratio 22 (6-26); Blood Urea Nitrogen 14 mg/dL (6-20); Calcium 8.6 mg/dL (8.6-10.3); Carbon Dioxide 38 mEq/L (23-29); Chloride 92 mEq/L (98-107); Glucose 153 mg/dL (70-105); Osmolality,Calculated 286 (280-300); Platelet Count 13 K/mcL (140-400); Potassium 3.6 mEq/L (3.5-5.1); Sodium 136 mEq/L (136-145); eGFR For African Americans > 60 (> 60); eGFR For Non-African Americans > 60 (> 60)
[2018-04-05 04:18] LABS: Platelet Estimate Decreased (Normal)
[2018-04-05 04:19] LABS: Hypochromasia Present (Not Present)
[2018-04-05] MEDS: Ipratropium/Albuterol Neb 3 ML IH SCH ×6 (04:41→23:50)
[2018-04-05] MEDS: *HR* OxyCODONE Immed Rel 5 MG TABLET PO PRN ×3 (05:19→17:59)
[2018-04-05] MEDS: Famotidine 20 MG/2 ML VIAL IVP SCH ×2 (05:19→17:59)
[2018-04-05] MEDS: *HR* Enoxaparin 40 MG/0.4 ML SYRINGE SQ SCH (07:37)
[2018-04-05] MEDS: Gabapentin 300 MG CAPSULE PO SCH ×3 (07:37→20:10)
[2018-04-05] MEDS: Levofloxacin 750 MG/150 ML 750 MG/150 ML BAG IVPB SCH (08:54)
--- NOTE | 2018-04-05 09:09 | Pulmonology Progress Note ---
<Douglas Coughlin - Last Filed: 04/05/18 10:17> Date of Encounter: 04/05/18 Time of Encounter: 09:07 Assessment and Plan (1) Sepsis Current Visit: No Status: Acute TXF to 2NE today. Systems based plan: - Patient seen and examined. - Labs, radiology, chart personally reviewed. 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 Patient wanting to transfer to floor today so will stop Precedex and will increase ativan to 1mg Q6hr. We restarted some home meds yesterday as well which has seemed to help. Pulmonary: Severe COPD, which is further complicated by her malignancy. CTA- chest was negative for PE. Will continue txt for PNA. Prelim resp cultures showing "fungal elements" but will hold off on any anti-fungal coverage until culture results. She is at very increased risk for Aspergillus but would avoid Vorizonazole due to side effect profile unless comes back positive. Cardiovascular: Has been hemodynamically stable. We will monitor closely GI: Nutrition per dietary and GI prophylaxis per routine Heme: DVT prophylaxis held due to worsening thrombocytopenia. 1 pool PLTS ordered for today. recheck this afternoon ID: Worsening neutropenia, thrombocytopenia, and mild anemia. Oncology following as welll, did not recommend any stimulating factor at this time. Continue antibiotics and plan to de-escalation Renal: Trend Endorcine: Monitor blood glucose Lines: all lines checked and no evidence of infections Skin: skin care to prevent pressure ulcers per nursing routine care Overall prognosis is poor 1. Worsening Neutropenia, likely related to her receiving chemotherapy but superimposed PNA cannot be ruled out, continue current ABX. Plan to deescalate once cultures result. 2. When necessary boluses of fluid if she becomes hypotensive but has been quite stable Qualifiers: Sepsis type: sepsis due to unspecified organism Qualified Code(s): A41.9 - Sepsis, unspecified organism (2) Lung cancer Current Visit: Yes Status: Acute 1. 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 Oncology following, no CSF at this time. Continue to monitor Qualifiers: Laterality: unspecified laterality Lung location: unspecified part of lung Qualified Code(s): C34.90 - Malignant neoplasm of unspecified part of unspecified bronchus or lung (3) Acute and chronic respiratory failure with hypoxia Current Visit: Yes Status: Acute 1. Multifactorial related to severe COPD and new lung cancer. Patient was placed on BiPAP due hypercapnic respiratory failure but that was significantly improved. Has been off BiPAP for > 24 hours (patient refusing), doing well. (4) DVT prophylaxis Current Visit: Yes Status: Acute 1. Held today due to severe thrombocytopenia, getting PLTS today, will resume when > 50. Subjective Principal diagnosis: sepsis Interval history: Doing well overnight, has not needed BiPAP and remains slightly anxious. Her back pain is better after restarting her on medications. Patient is requesting to transfer out of ICU today and states that she would like to go to [address] [place] [address] Objective PUL Vital signs: Last Vital Signs Temp 98.4 F 04/05/18 07:00 Pulse 96 04/05/18 07:00 Resp 18 04/05/18 07:00 BP 137/85 04/05/18 07:00 Pulse Ox 100 04/05/18 07:00 General appearance: no acute distress Eyes: nonicteric ENT: oropharynx moist Neck: supple Effort: mildly labored Auscultation: bilateral: diminished breath sounds, wheezes (faint) Cardiovascular: regular rate and rhythm Gastrointestinal: normoactive bowel sounds, non-distended Integumentary: normal Extremities: no cyanosis, no edema, no clubbing Musculoskeletal: no deformities normal mental status, non-focal exam Results - Laboratory Findings CBC and BMP: 04/05/18 03:20 04/05/18 03:20 ABG ABG pH 7.33 pH Units (7.32-7.45) 04/02/18 03:37 ABG pCO2 87 mmHg (35-45) H* D 04/02/18 03:37 ABG pO2 103 mmHg (85-104) D 04/02/18 03:37 ABG O2 Saturation 97 % (95-98) 04/02/18 03:37 PT/INR, D-dimer PT 10.7 Seconds (9.4-12.1) 04/03/18 03:33 Abnormal lab findings: Abnormal lab results WBC 0.1 K/mcL (4.3-11.1) L* 04/05/18 03:20 RBC 2.44 M/mcL (3.82-4.97) L 04/05/18 03:20 Hgb 7.3 g/dL (11.5-15.4) L 04/05/18 03:20 Hct 21.7 % (35.3-44.9) L 04/05/18 03:20 RDW 15.5 % (11.5-14.5) H 04/05/18 03:20 Plt Count 13 K/mcL (140-400) L* D 04/05/18 03:20 Neutrophils # 0.0 K/mcL (1.6-8.9) L 04/05/18 03:20 Lymphocytes # 0.0 K/mcL (0.6-4.6) L 04/05/18 03:20 Toxic Granulation Present (Not Present) A 04/02/18 03:35 Platelet Estimate Decreased (Normal) L 04/05/18 03:20 Large Platelets Present (Not Present) A 04/04/18 03:25 Hypochromasia Present (Not Present) A 04/05/18 03:20 Anisocytosis 1+ (Not Present) A 04/02/18 03:35 ABG pCO2 87 mmHg (35-45) H* D 04/02/18 03:37 ABG HCO3 46 mEq/L (21-27) H 04/02/18 03:37 ABG Total CO2 49 mEq/L (20-26) H 04/02/18 03:37 ABG Base Excess 17 mEq/L (-2 to 3) H 04/02/18 03:37 Chloride 92 mEq/L (98-107) L 04/05/18 03:20 Carbon Dioxide 38 mEq/L (23-29) H 04/05/18 03:20 Glucose 153 mg/dL (70-105) H 04/05/18 03:20 POC Glucose 147 mg/dL (70-99) H 04/02/18 06:48 AST 12 Units/L (13-39) L 04/03/18 03:33 Serum Total Protein 5.0 g/dL (6.4-8.9) L 04/03/18 03:33 Albumin 3.2 g/dL (3.5-5.7) L 04/03/18 03:33 Globulin 1.8 g/dL (2.4-3.5) L 04/03/18 03:33 Ur Squamous Epith Cells Moderate per lpf (None-Few) H 04/03/18 12:18 Vancomycin Trough 15 mcg/mL (5-10) H 04/03/18 21:58 - Microbiology Findings Microbiology Findings: Microbiology, Last 48 Hours 04/03/18 20:35 Sputum Culture - Preliminary Sputum Fungal Elements - Clinical Findings Intake & Output: Intake & Output 04/04/18 04/05/18 04/05/18 23:59 07:59 15:59 Intake Total 686 / 686 450 / 450 Output Total 1200 / 1200 1800 / 1800 Balance -514 / -514 -1350 / -1350 Weight 71.3 kg Consult Discharge Plan - Plan Referrals: NONE,PCP [Primary Care Provider] - <Emmanuel Contreras - Last Filed: 04/06/18 00:06> Date of Encounter: 04/06/18 Objective PUL Vital signs: Last Vital Signs Temp 97.9 F 04/05/18 23:55 Pulse 106 04/05/18 23:55 Resp 18 04/05/18 23:55 BP 132/78 04/05/18 23:55 Pulse Ox 100 04/05/18 23:55 Results - Laboratory Findings CBC and BMP: 04/05/18 03:20 04/05/18 03:20 ABG ABG pH 7.33 pH Units (7.32-7.45) 04/02/18 03:37 ABG pCO2 87 mmHg (35-45) H* D 04/02/18 03:37 ABG pO2 103 mmHg (85-104) D 04/02/18 03:37 ABG O2 Saturation 97 % (95-98) 04/02/18 03:37 PT/INR, D-dimer PT 10.7 Seconds (9.4-12.1) 04/03/18 03:33 Abnormal lab findings: Abnormal lab results WBC 0.1 K/mcL (4.3-11.1) L* 04/05/18 03:20 RBC 2.44 M/mcL (3.82-4.97) L 04/05/18 03:20 Hgb 7.3 g/dL (11.5-15.4) L 04/05/18 03:20 Hct 21.7 % (35.3-44.9) L 04/05/18 03:20 RDW 15.5 % (11.5-14.5) H 04/05/18 03:20 Plt Count 13 K/mcL (140-400) L* D 04/05/18 03:20 Neutrophils # 0.0 K/mcL (1.6-8.9) L 04/05/18 03:20 Lymphocytes # 0.0 K/mcL (0.6-4.6) L 04/05/18 03:20 Toxic Granulation Present (Not Present) A 04/02/18 03:35 Platelet Estimate Decreased (Normal) L 04/05/18 03:20 Large Platelets Present (Not Present) A 04/04/18 03:25 Hypochromasia Present (Not Present) A 04/05/18 03:20 Anisocytosis 1+ (Not Present) A 04/02/18 03:35 ABG pCO2 87 mmHg (35-45) H* D 04/02/18 03:37 ABG HCO3 46 mEq/L (21-27) H 04/02/18 03:37 ABG Total CO2 49 mEq/L (20-26) H 04/02/18 03:37 ABG Base Excess 17 mEq/L (-2 to 3) H 04/02/18 03:37 Chloride 92 mEq/L (98-107) L 04/05/18 03:20 Carbon Dioxide 38 mEq/L (23-29) H 04/05/18 03:20 Glucose 153 mg/dL (70-105) H 04/05/18 03:20 POC Glucose 147 mg/dL (70-99) H 04/02/18 06:48 AST 12 Units/L (13-39) L 04/03/18 03:33 Serum Total Protein 5.0 g/dL (6.4-8.9) L 04/03/18 03:33 Albumin 3.2 g/dL (3.5-5.7) L 04/03/18 03:33 Globulin 1.8 g/dL (2.4-3.5) L 04/03/18 03:33 Ur Squamous Epith Cells Moderate per lpf (None-Few) H 04/03/18 12:18 Vancomycin Trough 15 mcg/mL (5-10) H 04/03/18 21:58 - Microbiology Findings Microbiology Findings: Microbiology, Last 48 Hours 04/03/18 20:35 Sputum Culture - Preliminary Sputum Fungal Elements - Clinical Findings Intake & Output: Intake & Output 04/05/18 04/05/18 04/06/18 15:59 23:59 07:59 Intake Total 907 / 907 1071 / 1071 Output Total 350 / 350 600 / 600 Balance 557 / 557 471 / 471 Weight 66.82 kg - Attending Attestation I saw and evaluated this patient and my medical decision-making was reviewed with the Resident Physician. I agree with the documented findings, disposition and treatment plan as described except to the extent set forth below. We independently had [id number] contact with the patient Except for few additional assesment Patient seen and examined at bedside Labs, radiology, chart personally reviewed. Management was reviewed during multidisciplinary critical care rounds. SMALLTALK DEVELOPER:Patient is conscious oriented , Patient is following commands , she is anxious still on precedex will try to liberate today Pulm: Patient has acute exacerbation of COPD she started to vomit may be she aspirated led to flare up of COPD she was recently discharged that is yesterday from the hospital for COPD exacerbation , few days ago she was ruled out for PE at that time since the sudden onset of symptoms will empirically treat for PE . To continue steroids , bronchodilators , antibiotics for HAP . Patient has acceptable oxygenation BIPAP . Patient to continue BIPAP for Acute on Chronic hypoxic and hypercapnic respiratory failure. 04/03 Patient has Acute on Chronic hypercapnic respiratory failure stable for now will give her a break see how she does in the night she should go no BIPAP 04/04 Acute on Chronic hypercapnic respiratory patient wore few hrs of BIPAP in the night . 04/05 Patient should continue BIPAP at night will need overnight BIPAP qualification for chronic hypercapnic respiratory failure Cards: Patient is hemodynamically stable . FEN-GI:Can Advance diet as tolerated . Renal: Labs and output reviewed ID: Patient had tachycardia and tachypnea it all looks like her COPD flare up i doubt she has sepsis at this point . Since she is neutropenic will do Broad spectrum antibiotic and cultures . Patient lactate was normal 04/03 Patient is Neutropenic to continue broad spectrum antibiotics concern for aspiration pneumonia . 04/05 Patient is growing fungal elements with only 10 colonies will closely follow up clinical deterioration as these patients are more prone for invasive aspergillosis . Heme/Onc:Patient small cell lung ca now on chemo and radiation . Oncology following . Endo: Glucose Monitored Integ/MSK: Skin Care per routine ICU Nursing Protocol to prevent ulcers. Lines: All lines examined without evidence of infection : Dispo: Can be transferred to Medical telemetry. CODE:Full Code
[2018-04-05] MEDS ORDERED: *HR* LORazepam 2 MG/ML VIAL IVP PRN (10:12)
[2018-04-05] MEDS ORDERED: 0.9 % Sodium Chloride 250 ML ONE (10:43)
[2018-04-05] MEDS ORDERED: Naloxone 0.4 MG/ML INJ IVP PRN (14:38)
[2018-04-05] MEDS: Artificial Tears SOLN 15 ML BOTTLE BOTH EYES PRN (20:12)
[2018-04-05] MEDS: *HR* Promethazine 25 MG/ML VIAL IVP PRN (23:24)
[2018-04-06] MEDS: *HR* LORazepam 2 MG/ML VIAL IVP PRN ×3 (04:05→23:58)
[2018-04-06] MEDS: Piperacillin/Tazobactam 3.375 GM in 0.9 % Sodium Chloride Mini Bag 100 ML IVPB SCH ×3 (04:05→20:49)
[2018-04-06 04:15] LABS: Hematocrit 24.6 % (35.3-44.9); Hemoglobin 8.1 g/dL (11.5-15.4); Mean Corpuscular HGB Conc 32.9 g/dL (31.6-35.5); Mean Corpuscular Hemoglobin 29.6 pg (28.0-33.3); Mean Corpuscular Volume 89.8 fL (83.0-100.0); Mean Platelet Volume 9.7 fL (9.4-12.4); Red Blood Count 2.74 M/mcL (3.82-4.97); Red Cell Distribution Width 15.8 % (11.5-14.5)
[2018-04-06 04:16] LABS: Platelet Count 36 K/mcL (140-400)
[2018-04-06] MEDS: Ipratropium/Albuterol Neb 3 ML IH SCH ×6 (04:23→23:07)
[2018-04-06 04:32] LABS: BUN/Creatinine Ratio 13 (6-26); Blood Urea Nitrogen 12 mg/dL (6-20); Calcium 8.7 mg/dL (8.6-10.3); Carbon Dioxide 40 mEq/L (23-29); Chloride 94 mEq/L (98-107); Glucose 127 mg/dL (70-105); Osmolality,Calculated 289 (280-300); Sodium 139 mEq/L (136-145); eGFR For African Americans > 60 (> 60); eGFR For Non-African Americans > 60 (> 60)
[2018-04-06] MEDS: Famotidine 20 MG/2 ML VIAL IVP SCH ×2 (06:34→16:56)
[2018-04-06] MEDS: *HR* Promethazine 25 MG/ML VIAL IVP PRN (06:42)
[2018-04-06] MEDS: Potassium Chloride Elixir 20 MEQ/15 ML UDC PO SCH ×2 (08:16→12:30)
[2018-04-06] MEDS: *HR* OxyCODONE Immed Rel 5 MG TABLET PO PRN ×2 (08:16→20:56)
[2018-04-06] MEDS: Gabapentin 300 MG CAPSULE PO SCH ×3 (08:16→20:48)
[2018-04-06] MEDS: Levofloxacin 750 MG/150 ML 750 MG/150 ML BAG IVPB SCH (08:16)
[2018-04-06] MEDS: *HR* Metoprolol 5 MG/5 ML VIAL IVP PRN ×2 (09:56→16:56)
[2018-04-06] MEDS ORDERED: Aminoglycoside Consult 1 EACH MC ONE (14:03)
--- NOTE | 2018-04-06 16:35 | Internal Med Progress Note ---
Date of Encounter: 04/06/18 Time of Encounter: 09:20 - Assessment and plan (1) Acute and chronic respiratory failure with hypoxia Current Visit: Yes Status: Acute Assessment and plan: Patient is on 2L/min O2 via NC at home; now requiring almost 5L/min and noted to be in distress; due to acute COPD and underlying lung cancer; plan as below; (2) Acute exacerbation of chronic obstructive airways disease Current Visit: Yes Status: Acute Assessment and plan: start IV steroids; continue PRN breathing treatments, supplemental O2 and BiPAP support as needed; empiric IV antibiotics; ICS; repeat ABG in am; (3) Lung cancer Current Visit: Yes Status: Chronic Assessment and plan: h/o- right lung small cell carcinoma; follows with Oncology as outpatient, has been receiving concurrent chemoradiation with dose reduced Carboplatin and Etoposide, probably causing neutropenia; outpatient chemotherapy per Oncology; appreciate recommendations; Qualifiers: Laterality: right Lung location: unspecified part of lung Qualified Code( s): C34.91 - Malignant neoplasm of unspecified part of right bronchus or lung (4) Neutropenia Current Visit: Yes Status: Chronic Assessment and plan: WBC 2000, ANC has been <300 so far; neutropenic precautions; Qualifiers: Neutropenia type: unspecified Qualified Code(s): D70.9 - Neutropenia, unspecified (5) Pneumonia Current Visit: Yes Status: Suspected Assessment and plan: CTA chest with no e/o infection; on broad spectrum IV antibiotics due to neutropenia- Levaquin, Zosyn and Vancomycin; blood cultures negative; sputum culture grows fungal elements, likely due to neutropenia and antibiotic use; will d/w Pulm if treatment with Fluconazole is warranted; Qualifiers: Pneumonia type: due to unspecified organism Laterality: unspecified laterality Lung location: lower lobe of lung Qualified Code(s): J18.1 - Lobar pneumonia, unspecified organism (6) Sepsis Current Visit: Yes Status: Acute Assessment and plan: presented with leukocytosis and tachycardia; low grade fever 100.5 last night; continue antibiotics for now, consider ID consult; Qualifiers: Sepsis type: sepsis due to unspecified organism Qualified Code(s): A41.9 - Sepsis, unspecified organism - Time Spent With Patient Total time spent is greater than 50% in coordination of care (as documented) at patient's floor/unit and/or counseling patient: - Subjective Interval history: Patient is noted to be in mild distress, with coughing spell, tachycardia, shortness of breath, nausea and dry heaving; O2 requirements higher than baseline; she reports no chest pain; to be transferred to step down ICU for closer monitoring; - Constitutional Vitals: Temp Pulse Resp BP Pulse Ox 99.4 F 112 32 123/70 93 04/06/18 15:06 04/06/18 15:06 04/06/18 15:06 04/06/18 15:06 04/06/18 15:06 General appearance: Present: mild distress, A&O X 3, answers questions appropriately - Respiratory Respiratory exam: Present: CTAB (coarse breath sounds B/L). Absent: accessory muscle use, rales, rhonchi, wheezes - Cardiovascular Cardiovascular exam: Present: RRR, +S1, +S2, tachycardia. Absent: diastolic murmur, gallop, rubs, systolic murmur - GI/Abdominal GI/Abdominal exam: Present: normal bowel sounds, soft, no peritoneal signs. Absent: distended, tenderness - Extremities Exam Extremities exam: Present: full ROM, warm, radial pulses palpable and symmetrical. Absent: calf tenderness, cyanotic, pedal edema - Neurological Exam Neurological exam: Present: CN II-XII intact, oriented X3, no focal deficits. Absent: pronater drift, facial droop, speech deficit Internal Medicine: Result - Labs CBC & Chem 7: 04/06/18 03:55 04/06/18 03:55 Labs: Short CBC 04/06/18 Range/Units 03:55 WBC 0.2 L* D (4.3-11.1) K/mcL Hgb 8.1 L (11.5-15.4) g/dL Hct 24.6 L (35.3-44.9) % Plt Count 36 L D (140-400) K/mcL BMP 04/06/18 03:55 Sodium 139 Potassium 3.0 L Chloride 94 L Carbon Dioxide 40 H* BUN 12 Creatinine 0.89 Glucose 127 H Calcium 8.7 - ABG Interpretation ABG results: ABG ABG pH 7.33 pH Units (7.32-7.45) 04/02/18 03:37 ABG pCO2 87 mmHg (35-45) H* D 04/02/18 03:37 ABG pO2 103 mmHg (85-104) D 04/02/18 03:37 ABG O2 Saturation 97 % (95-98) 04/02/18 03:37 PT/INR, D-dimer PT 10.7 Seconds (9.4-12.1) 04/03/18 03:33 Consult Discharge Plan - Plan Referrals: NONE,PCP [Primary Care Provider] -
[2018-04-06] MEDS: MethylPREDNISolone 40 MG/ML VIAL IVP SCH ×2 (16:57→23:59)
[2018-04-07] MEDS: Ipratropium/Albuterol Neb 3 ML IH SCH ×5 (03:52→20:21)
[2018-04-07] MEDS: Piperacillin/Tazobactam 3.375 GM in 0.9 % Sodium Chloride Mini Bag 100 ML IVPB SCH ×3 (03:52→19:36)
[2018-04-07] MEDS: Famotidine 20 MG/2 ML VIAL IVP SCH ×2 (05:33→17:24)
[2018-04-07 05:56] LABS: ABG Base Excess 16 mEq/L (-2 to 3); ABG HCO3 42 mEq/L (21-27); ABG Oxygen Saturation 93 % (95-98); ABG PCO2 64 mmHg (35-45); ABG PH 7.42 pH Units (7.32-7.45); ABG PO2 68 mmHg (85-104); ABG TCO2 43 mEq/L (20-26); Blood Gas Modality BiLevel
[2018-04-07 06:16] LABS: Red Blood Count 2.47 M/mcL (3.82-4.97)
[2018-04-07 06:18] LABS: Hematocrit 21.7 % (35.3-44.9); Hemoglobin 7.1 g/dL (11.5-15.4); Immature Granulocytes % 6.3 % (0-4); Lymphocytes # 0.1 K/mcL (0.6-4.6); Lymphocytes % 21.9 %; Mean Corpuscular HGB Conc 32.7 g/dL (31.6-35.5); Mean Corpuscular Hemoglobin 28.7 pg (28.0-33.3); Mean Corpuscular Volume 87.9 fL (83.0-100.0); Monocytes # 0.1 K/mcL (0.0-1.3); Monocytes % 18.8 %; Neutrophils # 0.2 K/mcL (1.6-8.9); Red Cell Distribution Width 15.4 % (11.5-14.5)
[2018-04-07 06:22] LABS: BUN/Creatinine Ratio 18 (6-26); Blood Urea Nitrogen 16 mg/dL (6-20); Calcium 8.9 mg/dL (8.6-10.3); Carbon Dioxide 37 mEq/L (23-29); Chloride 93 mEq/L (98-107); Glucose 173 mg/dL (70-105); Osmolality,Calculated 291 (280-300); Sodium 138 mEq/L (136-145); eGFR For African Americans > 60 (> 60); eGFR For Non-African Americans > 60 (> 60)
[2018-04-07 06:30] LABS: Platelet Count 20 K/mcL (140-400)
[2018-04-07 06:47] LABS: Hypochromasia Present (Not Present); Platelet Estimate Marked Decrease (Normal)
[2018-04-07] MEDS: Gabapentin 300 MG CAPSULE PO SCH ×3 (09:09→20:58)
[2018-04-07] MEDS: *HR* OxyCODONE Immed Rel 5 MG TABLET PO PRN ×2 (09:09→19:35)
[2018-04-07] MEDS: Levofloxacin 750 MG/150 ML 750 MG/150 ML BAG IVPB SCH (09:10)
[2018-04-07] MEDS: MethylPREDNISolone 40 MG/ML VIAL IVP SCH ×3 (09:10→23:05)
[2018-04-07] MEDS ORDERED: Mag Hydrox/Al Hydrox/Simeth 30 ML UDC PO PRN (10:09)
--- NOTE | 2018-04-07 12:40 | Infectious Disease Consult ---
Date of Encounter: 04/07/18 Time of Encounter: 12:39 Assessment and Plan (1) Neutropenic fever Status: Acute Assessment and plan: Patient's ANC under 500 Had one fever yesterday with a MAXIMUM TEMPERATURE of 100.5 Fahrenheit Source of fever not clear. Concern for sinusitis or ear infection versus intra- abdominal. Patient is a on broad-spectrum antibiotics including vancomycin, Zosyn and levofloxacin Workup reviewed. Imaging of the chest noted. No signs of pneumonia. I will DC the vancomycin and levofloxacin and discontinue Zosyn for now Get a CT abdomen and pelvis to rule out Typhlitis or intra-abdominal process. Follow up on cultures Duration of treatment depends on the clinical picture (2) Ear ache Status: Acute Assessment and plan: Symptoms nonspecific. Patient is immunosuppressed I do wonder about mastoiditis versus middle ear infection Consider ENT consult Get CT of the head (3) Sinus pressure Status: Acute Assessment and plan: No signs of sinusitis and physical exam Get CT head (4) Sepsis Status: Acute Assessment and plan: Source not clear. Could be secondary to infection of the head and neck versus intra-abdominal process versus other Qualifiers: Sepsis type: sepsis due to unspecified organism Qualified Code(s): A41.9 - Sepsis, unspecified organism (5) COPD (chronic obstructive pulmonary disease) Status: Chronic Qualifiers: COPD type: unspecified COPD Qualified Code(s): J44.9 - Chronic obstructive pulmonary disease, unspecified (6) Chronic respiratory failure Status: Chronic Assessment and plan: Patient tells me that every time she goes home she was back to smoking and us when she has respiratory failure again Qualifiers: Respiratory failure complication: hypoxia Qualified Code(s): J96.11 - Chronic respiratory failure with hypoxia (7) Small cell carcinoma Status: Chronic Assessment and plan: Diagnosed in January 2018 Currently on chemotherapy third session was on 03/24 We will discuss with hematology/oncology to see when the marilynn neutrophil is and one to expect the WBCs to start improving (8) Tobacco abuse Status: Chronic Infectious Disease HPI - Data of Consult Patient: new to practice Consult date: 04/07/18 Requesting Physician: Trudi Glaser MD Primary Care Provider: PCP NONE - Consult Narrative Reason for consult: Neutropenic fever History of present illness: Current is a 52 year old female Patient is a 52-year-old woman who presented to [facility] on 04/02 complaining of shortness of breath, we are consult head on 04/29 neutropenic patient with shortness of breath and sputum culture with fungal elements. Patient is a 52-year-old woman who has an extensive past medical history including small cell lung cancer diagnosed in January 2018 by biopsy and BAL who is being treated with carboplatin and etoposide who received cycle #3 on . On 03/03 patient presented to [facility] with shortness of breath and cough. [facility] infectious panel was done at that time it came back negative. Urine legionella and pneumococcal antigen were also negative. Patient was treated with levofloxacin 750 mg daily 7 days. On 03/29/18 patient presented to [facility] with shortness of breath with intermittent cough but no sputum production. At that time patient was evaluated with a CT chest which read no pulmonary embolism. Mucous plugging in the left lower lobe with complete opacification of the right middle lobe bronchus. There is near complete atelectasis of the right middle lobe. Advance centrilobular emphysema. Stable fibrotic changes. Apparent decrease in the size of pulmonary nodules in the right lower lobe. Blood cultures were obtained at that time and were negative. And was discharged on levofloxacin and prednisone to finish a 7 day course. No causative organism was identified Every time patient gets discharged home, she gets more short of breath and comes back to the emergency department. I spoke with the patient and I asked her what really that she feels. She tells me as soon as she does want to start smoking again and her breathing deteriorates significantly. Patient also states that she gets cough with sputum production. She denies any other symptoms. Patient is on home O2 nasal cannula. During the hospital stay, his MAXIMUM TEMPERATURE was 100.5 Fahrenheit, patient was tachycardic and tachypneic. Presenting WBC was 0.4 with ANC of 300. Patients blood chemistry revealed elevated bicarbonate and normal creatinine. A urinalysis was obtained which was negative. CTA of the chest on 04/03 revealed no evidence of pulmonary embolism or acute pulmonary abnormality. Blood cultures were obtained on 04/02 and are no growth to date. Sputum culture on 04/03 revealed few yeast on the Gram stain and culture is reading as fungal elements sparse less than 10 colonies. I did call microbiology and discuss the lab findings with them. The fungal elements is not yeast better grew a - normal plate. The cultures were sent up on the and grew on April 06. Patient was started empirically on levofloxacin, Zosyn and vancomycin and we were asked to evaluate the patients make further recommendations. Currently, patient is lying in bed. Appears comfortable no acute distress. Patient review of system is positive for left ear ache and sinus pressure. Patient denies any toothache or gum disease. Patient does not have any teeth and she is not wearing dentures. Patient shortness of breath is at baseline with green sputum production that is intermittent. No hemoptysis. Patient denies any nausea or vomiting. No abdominal pain. No diarrhea. No urinary symptoms. She has multiple skin bruising. CC: Trudi Glaser MD Past Med Surg Social Fam HX - Past Medical History Medical history: asthma, cancer, COPD, hyperlipidemia, hypertension Additional medical history: lung CA Psychiatric history: anxiety, depression - Past Surgical History Surgical History: appendectomy, , cholecystectomy Additional surgical history: x3 - Social History Smoking Status: Former smoker Smokeless Tobacco Status: No Alcohol use: none Drug use: none - Family History Mother Living Status: Hx Family Cardiac Disorders: No Hx Family Respiratory Disorders: Yes (COPD) Hx Family Cancer: No Hx Family GI Disorders: Yes (hernia) Hx Family Endocrine Disorder: Yes (thyriod) Hx Family Neuromuscular Disorders: No Hx Family Neurologic Disorders: No Hx Family HEENT Disorders: No Hx Family Autoimmune Disorders: No Father Living Status: Hx Family Cardiac Disorders: Yes Hx Family Respiratory Disorders: Yes (COPD) Hx Family Cancer: Yes (colon cancer) Hx Family GI Disorders: No Hx Family Endocrine Disorder: No Hx Family Neuromuscular Disorders: No Hx Family Neurologic Disorders: No Hx Family HEENT Disorders: No Hx Family Autoimmune Disorders: No Infectious Disease-CN:Meds Albuterol Neb [AccuNeb] 0.63 mg IH Q6H PRN 11/27/17 [History] Albuterol Sulfate [Ventolin Hfa] 2 puff IH Q4H PRN 11/27/17 [History] Atenolol [Tenormin] 25 mg PO DAILY 11/27/17 [History] Diclofenac Sodium [Voltaren] 1 appl TP 5XD 11/27/17 [History] Gabapentin [Neurontin] 600 mg PO TID 11/27/17 [History] Ipratropium/Albuterol Sulfate [Combivent Respimat 20-100 Mcg] 1 puff IH QID [History] Loratadine [Claritin] 10 mg PO DAILY 11/27/17 [History] Montelukast [Singulair] 10 mg PO HS 11/27/17 [History] Omeprazole [PriLOSEC] 20 mg PO DAILY 11/27/17 [History] Oxybutynin [Ditropan] 2.5 mg PO DAILY 11/27/17 [History] Oxygen 2 l NS AD 11/27/17 [History] Spironolactone [Aldactone] 25 mg PO BID 11/27/17 [History] DULoxetine [Cymbalta] 30 mg PO DAILY 11/29/17 [History] Ipratropium/Albuterol Neb [Duoneb] 3 ml IH [id number] PRN #100 inhsol 02/25/18 [Rx] Docusate [Colace] 100 mg PO BID PRN capsule 03/07/18 [Rx] ALPRAZolam [Xanax 0.5 MG Tablet] 0.5 mg PO QID PRN 30 Days #120 tablet 03/17/18 [Rx] OxyCODONE Immed Rel [Roxicodone 5 MG] 5 - 10 mg PO Q4H PRN 30 Days #240 tablet 03/17/18 [Rx] levoFLOXacin [Levaquin] 500 mg PO DAILY #3 tablet 04/01/18 [Rx] predniSONE [PredniSONE] 40 mg PO DAILY 2 Days #4 tablet 04/01/18 [Rx] Fluticasone/Salmeterol [Advair 250-50 Diskus] 1 puff IH BID 04/02/18 [History] Fluticasone/Vilanterol [Breo Ellipta 100-25 Mcg INH] 1 puff IH DAILY 04/02/18 [ History] Nicotine Patch [Nicoderm] 21 mg TD DAILY 04/02/18 [History] 3 Allergy/AdvReac Type Severity Reaction Status Date / Time budesonide [From Symbicort] AdvReac Chest Pain Verified 03/04/18 07:38 Formoterol [From Symbicort] AdvReac Chest Pain Verified 03/04/18 07:38 Review of systems: 10 point review of systems done, negative other for what mentioned in the history of present illness Exam - Constitutional Vitals: Temp Pulse Resp BP Pulse Ox 97.8 F 90 20 126/107 93 04/07/18 11:31 04/07/18 11:31 04/07/18 11:31 04/07/18 11:31 04/07/18 11:31 General appearance: cooperative, no acute distress, no febrile - Head Head exam: Present: atraumatic, normocephalic - Eye Eye exam: Present: EOMI, PERRL, sclera anicteric. Absent: conjunctival injection - ENT Additional comments: Mucous membranes moist. No oral thrush. Patient has no teeth and no dentures. No obvious gum disease. - Neck Neck exam: Present: full ROM. Absent: meningismus - Respiratory Respiratory exam: Present: CTAB. Absent: rhonchi, wheezes - Cardiovascular Cardiovascular exam: Present: RRR, +S1, +S2. Absent: systolic murmur - GI/Abdominal GI/Abdominal exam: Present: normal bowel sounds, soft. Absent: guarding, tenderness - Rectal Rectal exam: Present: normal inspection (No perirectal abscess) - Back Exam Back exam: Absent: CVA tenderness (L), CVA tenderness (R), vertebral tenderness - Neurological Exam Neurological exam: Present: alert, oriented X3. Absent: no focal deficits - Psychiatric Psychiatric exam: Present: normal affect, normal mood - Skin Skin exam: Present: normal color Infectious Disease CN: Results - Labs CBC & Chem 7: 04/07/18 05:43 04/07/18 05:43 Cultures: Cultures 04/03/18 20:35 Sputum Culture - Preliminary Sputum Fungal Elements Serology: Serology 04/03/18 Range/Units 12:18 Urine Color Yellow (Yellow) Urine Clarity Clear (Clear) Urine pH 7.5 (5.0-8.0) pH Units Ur Specific [place] 1.019 (1.010-1.025) Urine Protein Trace (Neg-Trace) mg/dL Urine Glucose (UA) Normal (Normal) mg/dL Urine Ketones Negative (Negative) mg/dL Urine Blood Negative (Negative) Urine Nitrite Negative (Negative) Urine Bilirubin Negative (Negative) Urine Urobilinogen Normal (Normal) mg/dL Ur Leukocyte Esterase Negative (Negative) Urine Microscopic RBC 0-3 (0-3) per hpf Urine Microscopic WBC 0-3 (0-3) per hpf Ur Squamous Epith Cells Moderate H (None-Few) per lpf Urine Bacteria None Seen (None-Few) per hpf Hyaline Casts None Seen (None-Few) per lpf Ur Culture Indicated? NO (NO) Consult Discharge Plan - Plan Referrals: Jhonny Perdomo MD [Partnered Physician] - 04/14/18 10:45 am
[2018-04-07] MEDS: Artificial Tears SOLN 15 ML BOTTLE BOTH EYES PRN (13:10)
--- NOTE | 2018-04-07 16:28 | Oncology Inp Progress Note ---
<Syeda Ann E - Last Filed: 04/07/18 16:47> Date of Encounter: 04/07/18 Time of Encounter: 16:24 (1) Pancytopenia due to antineoplastic chemotherapy Current Visit: Yes Status: Acute Assessment and plan: Neutropenia- continue precautions. Temp elevation 04/06/18 100.5, has been afebrile since that time. Continue Zosyn. Anemia- is receiving packed cells Thrombocytopenia- receiving platelets. She received cycle#3 Carbo/ Etoposide- 03/24 with a 25 % reduction in carboplatin. TWYLA usually occurs about 14 days after this treatment is given. Continue supportive care as needed. (2) Lung cancer Current Visit: Yes Status: Chronic Assessment and plan: Will need to f/u with Dr. Adams regarding further treatment recommendations upon discharge. Qualifiers: Laterality: right Lung location: unspecified part of lung Qualified Code( s): C34.91 - Malignant neoplasm of unspecified part of right bronchus or lung (3) Anemia Current Visit: No Status: Chronic Assessment and plan: continue pulmonary toilet as per pulmonary and zosyn as per ID. Qualifiers: Anemia type: unspecified type Qualified Code(s): D64.9 - Anemia, unspecified (4) COPD exacerbation Current Visit: No Status: Acute Oncology: Subj Interval history: Patient is currently receiving packed cells HGB 7.1. Reports continued weakness and shortness of breath, Continues to expectorate yellowish mucous. States not really feeling much better however she is no longer on bipap is on 5 LPM O2 per nasal cannula. Sating at 96%. Appetite remains poor. - Constitutional Vitals: Vital Signs Temp Pulse Resp BP Pulse Ox 04/07/18 16:06 98.2 F 117 20 135/70 96 04/07/18 15:11 98.4 F 107 16 135/70 94 04/07/18 15:04 98.1 F 112 16 131/92 04/07/18 11:31 97.8 F 90 20 126/107 93 04/07/18 07:39 16 90 04/07/18 07:18 97.8 F 94 20 118/60 92 04/07/18 03:55 25 97 04/07/18 03:36 97.6 F 87 20 122/77 96 04/07/18 03:30 85 04/07/18 00:12 20 94 07/02/18 00:10 88 04/06/18 23:16 98.3 F 85 26 133/83 96 04/06/18 23:10 18 99 04/06/18 20:05 98.8 F 98 26 110/66 97 04/06/18 19:51 24 90 04/06/18 16:38 32 123/70 92 Intake and Output 04/07/18 04/07/18 04/07/18 07:59 15:59 23:59 Intake Total 350 / 350 100 / 100 Output Total 1000 / 1000 Balance 350 / 350 -900 / -900 Intake: IV Fluids 350 / 350 100 / 100 Zosyn 3.375 GM In 0.9 % Sodium 100 / 100 100 / 100 Chloride (Mini-Bag +) 100 ML @ 25 mls/hr IVPB Q8H [facility] Rx#: [id number] Vancocin 1,000 MG In 0.9 % 250 / 250 Sodium Chloride 250 ML @ 166. 667 mls/hr IVPB Q12H [facility] Rx#: [id number] Blood Product 0 / 0 Rbcs Leuko Poor As-1 Unit 0 / 0 [id number] Output: Urine 1000 / 1000 Other: Stool Size Small Stool Consistency soft Stool Color Brown # Voids 1 # Bowel Movements 1 Weight 68.9 kg Patient Weight 04/07/18 23:59 Weight 68.9 kg General appearance: cooperative, mild distress - Head Head exam: Present: normocephalic - ENT ENT exam: Present: mucous membranes moist ( no evidence of thrush or mucositis) - Neck Neck exam: Present: normal inspection - Respiratory Respiratory exam: Present: prolonged expiratory phase, rhonchi, wheezes - Cardiovascular Cardiovascular exam: Present: RRR, tachycardia - GI/Abdominal GI/Abdominal exam: Present: normal bowel sounds, soft ( non tender) - Extremities Exam Extremities exam: Present: normal capillary refill, normal inspection (Multiple bruises on upper extremities, previous IV sites. Iv in R upper arm.) - Neurological Exam Neurological exam: Present: alert - Psychiatric Psychiatric exam: Present: normal affect, normal mood - Skin Skin exam: Present: intact, pallor Oncology: Obj Data - Labs CBC & Chem 7: 04/07/18 05:43 04/07/18 05:43 Labs: Laboratory Results - last 24 hr 04/05/18 04/06/18 04/07/18 09:00 21:33 05:40 WBC RBC Hgb Hct MCV MCH MCHC RDW Plt Count MPV Immature Gran % Seg Neutrophils % Lymphocytes % Monocytes % Eosinophils % Basophils % Neutrophils # Lymphocytes # Monocytes # Eosinophils # Basophils # Platelet Estimate Hypochromasia Sample Site L Radial ABG pH 7.42 ABG pCO2 64 H ABG pO2 68 L ABG HCO3 42 H ABG Total CO2 43 H ABG O2 Saturation 93 L ABG Base Excess 16 H Yuri Test Positive O2 Delivery Device BiPAP Blood Gas Modality BiLevel Inspired O2 40.0 Sodium Potassium Chloride Carbon Dioxide BUN Creatinine Est GFR ( Amer) Est GFR (Non-Af Amer) BUN/Creatinine Ratio Glucose Calculated Osmolality Calcium Vancomycin Trough 19 H Blood Type A POSITIVE Antibody Screen NEGATIVE Crossmatch See Detail 04/07/18 04/07/18 05:43 05:43 WBC 0.3 L* RBC 2.47 L Hgb 7.1 L Hct 21.7 L MCV 87.9 MCH 28.7 MCHC 32.7 RDW 15.4 H Plt Count 20 L* MPV 10.0 Immature Gran % 6.3 H Seg Neutrophils % 53.0 Lymphocytes % 21.9 Monocytes % 18.8 Eosinophils % 0.0 Basophils % 0.0 Neutrophils # 0.2 L Lymphocytes # 0.1 L Monocytes # 0.1 Eosinophils # 0.0 Basophils # 0.0 Platelet Estimate Marked Decrease L Hypochromasia Present A Sample Site ABG pH ABG pCO2 ABG pO2 ABG HCO3 ABG Total CO2 ABG O2 Saturation ABG Base Excess Yuri Test O2 Delivery Device Blood Gas Modality Inspired O2 Sodium 138 Potassium 4.0 Chloride 93 L Carbon Dioxide 37 H BUN 16 Creatinine 0.87 Est GFR ( Amer) > 60 Est GFR (Non-Af Amer) > 60 BUN/Creatinine Ratio 18 Glucose 173 H Calculated Osmolality 291 Calcium 8.9 Vancomycin Trough Blood Type Antibody Screen Crossmatch - ABG Interpretation ABG results: ABG ABG pH 7.42 pH Units (7.32-7.45) 04/07/18 05:40 ABG pCO2 64 mmHg (35-45) H 04/07/18 05:40 ABG pO2 68 mmHg (85-104) L 04/07/18 05:40 ABG O2 Saturation 93 % (95-98) L 04/07/18 05:40 PT/INR, D-dimer PT 10.7 Seconds (9.4-12.1) 04/03/18 03:33 Consult Discharge Plan - Plan Referrals: Jhonny Perdomo MD [Primary Care Provider] - 04/14/18 10:45 am <Julio Cesar,Shae Ca - Last Filed: 04/08/18 19:55> Date of Encounter: 04/08/18 - Constitutional Vitals: Vital Signs Temp Pulse Resp BP Pulse Ox 04/08/18 19:30 98.7 F 78 18 131/60 96 04/08/18 15:31 87 04/08/18 15:20 98.7 F 91 18 132/68 95 04/08/18 11:24 16 94 04/08/18 11:22 87 04/08/18 11:02 98.1 F 87 18 138/63 95 04/08/18 07:49 18 96 04/08/18 07:48 83 04/08/18 07:11 97.6 F 83 15 125/75 92 04/08/18 03:49 97.6 F 82 18 132/60 95 04/08/18 03:07 17 92 04/08/18 01:20 98.2 F 82 18 147/80 04/08/18 00:12 20 96 04/07/18 23:36 97.7 F 93 20 120/70 95 04/07/18 23:18 97.9 F 96 22 141/83 93 04/07/18 22:54 98.5 F 102 16 110/61 95 04/07/18 20:27 98.3 F 107 16 125/69 94 04/07/18 20:24 16 96 04/07/18 20:12 98.5 F 103 20 107/65 93 04/07/18 19:57 98.4 F 101 22 132/70 91 Intake and Output 04/08/18 04/08/18 04/08/18 07:59 15:59 23:59 Intake Total 1190 / 1190 580 / 580 120 / 120 Output Total 500 / 500 1050 / 1050 Balance 690 / 690 -470 / -470 120 / 120 Intake: IV Fluids 200 / 200 100 / 100 Zosyn 3.375 GM In 0.9 % Sodium 200 / 200 100 / 100 Chloride (Mini-Bag +) 100 ML @ 25 mls/hr IVPB Q8H [facility] Rx#: [id number] Oral 640 / 640 480 / 480 120 / 120 Blood Product 350 / 350 Rbcs Leuko Poor As-1 Unit 350 / 350 [id number] Output: Urine 500 / 500 1050 / 1050 Other: Meal Lunch Dinner Percent of Meal Consumed 25% 95% Weight 69 kg Patient Weight 04/08/18 23:59 Weight 69 kg Oncology: Obj Data - Labs CBC & Chem 7: 04/08/18 03:25 04/08/18 09:20 Labs: Laboratory Results - last 24 hr 04/05/18 04/06/18 04/08/18 09:00 03:55 03:25 WBC 0.5 L* D RBC 2.85 L Hgb 8.1 L Hct 23.8 L MCV 83.5 MCH 28.4 MCHC 34.0 RDW 15.6 H Plt Count 22 L* MPV 11.0 Immature Gran % 4.0 Seg Neutrophils % 64.0 Lymphocytes % 14.0 Monocytes % 18.0 Eosinophils % 0.0 Basophils % 0.0 Neutrophils # 0.3 L Lymphocytes # 0.1 L Monocytes # 0.1 Eosinophils # 0.0 Basophils # 0.0 Platelet Estimate Marked Decrease L Hypochromasia Present A Sodium Potassium Chloride Carbon Dioxide BUN Creatinine Est GFR ( Amer) Est GFR (Non-Af Amer) BUN/Creatinine Ratio Glucose Calculated Osmolality Calcium A. galactomannan Ag NEGATIVE A. galactomannan Ag Idx 0.06 Blood Type A POSITIVE Antibody Screen NEGATIVE Crossmatch See Detail 04/08/18 09:20 WBC RBC Hgb Hct MCV MCH MCHC RDW Plt Count MPV Immature Gran % Seg Neutrophils % Lymphocytes % Monocytes % Eosinophils % Basophils % Neutrophils # Lymphocytes # Monocytes # Eosinophils # Basophils # Platelet Estimate Hypochromasia Sodium 134 L Potassium 3.5 Chloride 92 L Carbon Dioxide 34 H BUN 14 Creatinine 0.88 Est GFR ( Amer) > 60 Est GFR (Non-Af Amer) > 60 BUN/Creatinine Ratio 16 Glucose 196 H Calculated Osmolality 284 Calcium 8.6 A. galactomannan Ag A. galactomannan Ag Idx Blood Type Antibody Screen Crossmatch - Impressions Impressions Abdomen/Pelvis CT 04/08/18 12:00 IMPRESSION: 1. No definite intra-abdominal abnormality to explain the patient's symptoms. 2. Partial visualization of right infrahilar consolidation, right base opacity, and small effusion. Findings may represent infection in the appropriate clinical setting. 3. Status post cholecystectomy. 4. Moderate diverticulosis. D/ / 04/08/2018 13:14:52 Kelsey Sunshine MD / norah Interpreting Provider: Kelsey Sunshine MD Sinuses CT 04/08/18 12:00 IMPRESSION: No evidence of acute or chronic sinusitis. Clear ostiomeatal units. Midline septum. Normal size of the turbinates. No abnormality seen within either ear. D/ / Byorn Ryder MD / Byron Ryder MD Interpreting Provider: Byron Ryder MD - ABG Interpretation ABG results: ABG ABG pH 7.42 pH Units (7.32-7.45) 04/07/18 05:40 ABG pCO2 64 mmHg (35-45) H 04/07/18 05:40 ABG pO2 68 mmHg (85-104) L 04/07/18 05:40 ABG O2 Saturation 93 % (95-98) L 04/07/18 05:40 PT/INR, D-dimer PT 10.7 Seconds (9.4-12.1) 04/03/18 03:33 - Attending Attestation I examined this patient and my medical decision-making was reviewed with the Advanced Practice Nurse. I agree with the documented findings, disposition and treatment plan as described except to the extent set forth below. 1. Lung cancer status post concurrent chemoradiation. Chemotherapy/cycle 3 on 03/24/2018 Since she received thoracic radiation she may take longer for the bone marrow to recover Overall neutrophil count improved to 200. Agree with packed RBC transfusion and platelet transfusion as necessary I expect the County improved within next 2 days or so. Currently she is on Zosyn and afebrile
--- NOTE | 2018-04-07 16:33 | Internal Med Progress Note ---
Date of Encounter: 04/07/18 Time of Encounter: 10:00 - Assessment and plan (1) Acute and chronic respiratory failure with hypoxia Current Visit: Yes Status: Acute Assessment and plan: Patient is on 2L/min O2 via NC at home; now requiring almost 5L/min; due to acute COPD and underlying lung cancer; plan as below; (2) Acute exacerbation of chronic obstructive airways disease Current Visit: Yes Status: Acute Assessment and plan: continue IV steroids; continue PRN breathing treatments, supplemental O2 and BiPAP support as needed; empiric IV antibiotics; ICS; repeat ABG shows compensated pH 7.42, improved PCO2 64, PO2 68. PT/OT evaluation; patient lives with her who is sick with terminal cancer, and she takes care of him; (3) Lung cancer Current Visit: Yes Status: Chronic Assessment and plan: h/o- right lung small cell carcinoma; follows with Oncology as outpatient, has been receiving concurrent chemoradiation with dose reduced Carboplatin and Etoposide, probably causing neutropenia; outpatient chemotherapy per Oncology; appreciate recommendations; Qualifiers: Laterality: right Lung location: unspecified part of lung Qualified Code( s): C34.91 - Malignant neoplasm of unspecified part of right bronchus or lung (4) Neutropenia Current Visit: Yes Status: Chronic Assessment and plan: WBC 3000, ANC 200; neutropenic precautions; Case discussed with oncology. Patient continues to have worsening anemia and thrombocytopenia along with neutropenia. Will give 2 units PRBC and 2 units platelet transfusion. Qualifiers: Neutropenia type: unspecified Qualified Code(s): D70.9 - Neutropenia, unspecified (5) Pneumonia Current Visit: Yes Status: Suspected Assessment and plan: CTA chest with no e/o infection; on broad spectrum IV antibiotics due to febrile neutropenia- Levaquin, Zosyn and Vancomycin; blood cultures negative; sputum culture grows fungal elements, likely due to neutropenia and antibiotic use; will consult infectious diseases for further recommendations. Qualifiers: Pneumonia type: due to unspecified organism Laterality: unspecified laterality Lung location: lower lobe of lung Qualified Code(s): J18.1 - Lobar pneumonia, unspecified organism (6) Sepsis Current Visit: Yes Status: Acute Assessment and plan: presented with leukocytosis and tachycardia; low grade fever 100.5 2 nights ago ; continue antibiotics for now, will f/up ID consult; Qualifiers: Sepsis type: sepsis due to unspecified organism Qualified Code(s): A41.9 - Sepsis, unspecified organism - Time Spent With Patient Total time spent is greater than 50% in coordination of care (as documented) at patient's floor/unit and/or counseling patient: - Subjective Interval history: Patient is irritable today; reports "bloating and indigestion". No chest or abdominal pain, improved shortness of breath; continues to have intermittent cough, had low grade fever overnight; - Constitutional Vitals: Temp Pulse Resp BP Pulse Ox 98.4 F 107 16 135/70 94 04/07/18 15:11 04/07/18 15:11 04/07/18 15:11 04/07/18 15:11 04/07/18 15:11 General appearance: Present: A&O X 3, answers questions appropriately - Respiratory Respiratory exam: Present: CTAB (coarse breath sounds B/L). Absent: accessory muscle use, rales, rhonchi, wheezes - Cardiovascular Cardiovascular exam: Present: RRR, +S1, +S2. Absent: diastolic murmur, gallop, rubs, systolic murmur - GI/Abdominal GI/Abdominal exam: Present: normal bowel sounds, soft, no peritoneal signs. Absent: distended, tenderness - Extremities Exam Extremities exam: Present: full ROM, pedal edema, warm, radial pulses palpable and symmetrical. Absent: calf tenderness, cyanotic Internal Medicine: Result - Labs CBC & Chem 7: 04/07/18 05:43 04/07/18 05:43 Labs: Short CBC 04/07/18 Range/Units 05:43 WBC 0.3 L* (4.3-11.1) K/mcL Hgb 7.1 L (11.5-15.4) g/dL Hct 21.7 L (35.3-44.9) % Plt Count 20 L* (140-400) K/mcL Neutrophils # 0.2 L (1.6-8.9) K/mcL BMP 04/07/18 05:43 Sodium 138 Potassium 4.0 Chloride 93 L Carbon Dioxide 37 H BUN 16 Creatinine 0.87 Glucose 173 H Calcium 8.9 - ABG Interpretation ABG results: ABG ABG pH 7.42 pH Units (7.32-7.45) 04/07/18 05:40 ABG pCO2 64 mmHg (35-45) H 04/07/18 05:40 ABG pO2 68 mmHg (85-104) L 04/07/18 05:40 ABG O2 Saturation 93 % (95-98) L 04/07/18 05:40 PT/INR, D-dimer PT 10.7 Seconds (9.4-12.1) 04/03/18 03:33 Consult Discharge Plan - Plan Referrals: Jhonny Perdomo MD [Partnered Physician] - 04/14/18 10:45 am
[2018-04-07] MEDS: 0.9 % Sodium Chloride 250 ML ONE ×2 (18:57→20:50)
[2018-04-07] MEDS ORDERED: 0.9 % Sodium Chloride 250 ML ONE (19:50)
[2018-04-07 23:32] LABS: A.galactomannan Ag Index 0.06
[2018-04-08] MEDS: Ipratropium/Albuterol Neb 3 ML IH SCH ×6 (00:10→20:17)
[2018-04-08] MEDS: Piperacillin/Tazobactam 3.375 GM in 0.9 % Sodium Chloride Mini Bag 100 ML IVPB SCH ×3 (03:31→18:50)
[2018-04-08 04:02] LABS: Hematocrit 23.8 % (35.3-44.9); Hemoglobin 8.1 g/dL (11.5-15.4); Lymphocytes # 0.1 K/mcL (0.6-4.6); Mean Corpuscular Hemoglobin 28.4 pg (28.0-33.3); Mean Corpuscular Volume 83.5 fL (83.0-100.0); Monocytes # 0.1 K/mcL (0.0-1.3); Neutrophils # 0.3 K/mcL (1.6-8.9); Red Blood Count 2.85 M/mcL (3.82-4.97); Red Cell Distribution Width 15.6 % (11.5-14.5)
[2018-04-08 04:18] LABS: Platelet Count 22 K/mcL (140-400)
[2018-04-08 05:04] LABS: Hypochromasia Present (Not Present); Platelet Estimate Marked Decrease (Normal)
[2018-04-08] MEDS: Famotidine 20 MG/2 ML VIAL IVP SCH (06:02)
[2018-04-08] MEDS: MethylPREDNISolone 40 MG/ML VIAL IVP SCH ×2 (07:39→19:55)
[2018-04-08] MEDS: Artificial Tears SOLN 15 ML BOTTLE BOTH EYES PRN ×2 (07:39→20:00)
[2018-04-08] MEDS: Gabapentin 300 MG CAPSULE PO SCH ×3 (07:39→19:55)
[2018-04-08] MEDS: *HR* OxyCODONE Immed Rel 5 MG TABLET PO PRN ×3 (07:46→19:58)
--- NOTE | 2018-04-08 09:06 | Infectious Disease Progress No ---
Date of Encounter: 04/08/18 Time of Encounter: 09:04 - Assessment and Plan (1) Neutropenic fever Current Visit: Yes Status: Acute Patients white count this morning is 0.5 - Had one fever on 04/06 with TMAX of 100.5; temp today is 97.6 - Blood CX 04/02 negative 11/08 - Source of fever unclear at this time; possibly sinusitis or ear infection versus intra-abdominal. - Currently on Zosyn; recommend that on discharge, patient be given oral levaquin 750 mg; complete 7 day antibiotic course - CT abdomen and pelvis pending; r/o out Typhlitis or intra-abdominal process - Oncology is on board (2) Ear ache Current Visit: Yes Status: Acute Patient complained of left ear pain and sinus pressure - Possibly secondary to mastoiditis or ear infection - CT of the head is pending (3) Sinus pressure Current Visit: Yes Status: Acute CT head demonstrated: - No evidence of acute or chronic sinusitis, clear ostiomeatal units, midline septum, normal size of the turbinates, no abnormality seen within either ear Pain is resolved (4) Sepsis Current Visit: Yes Status: Acute Source unclear at this time CT scan shows no infection source Qualifiers: Sepsis type: sepsis due to unspecified organism Qualified Code(s): A41.9 - Sepsis, unspecified organism (5) Small cell carcinoma Current Visit: No Status: Chronic Diagnosed in January 2018 - Currently on chemotherapy third session was on 03/24 - Oncology on board (6) COPD (chronic obstructive pulmonary disease) Current Visit: No Status: Chronic - Currently on duoneb and solumedrol Qualifiers: COPD type: unspecified COPD Qualified Code(s): J44.9 - Chronic obstructive pulmonary disease, unspecified (7) Tobacco abuse Current Visit: No Status: Chronic - Subjective Interval history: Patient seen and examined at bedside this morning. Reports having mild shortness of breath, but that this is relatively normal for her. Reports continued yellow mucous production. Notes that she had a headache yesterday, but that this has since sibsided. Denies fever, chills, abdominal pain, cough, chest pain, or fatigue. Currently on 5 L O2 via NC. no complaints at this time. Infect Dis PN-Objective Data - Labs CBC & Chem 7: 04/08/18 03:25 07/03/18 09:20 Labs: Laboratory Results - last 24 hr 04/05/18 04/06/18 04/08/18 09:00 03:55 03:25 WBC 0.5 L* D RBC 2.85 L Hgb 8.1 L Hct 23.8 L MCV 83.5 MCH 28.4 MCHC 34.0 RDW 15.6 H Plt Count 22 L* MPV 11.0 Immature Gran % 4.0 Seg Neutrophils % 64.0 Lymphocytes % 14.0 Monocytes % 18.0 Eosinophils % 0.0 Basophils % 0.0 Neutrophils # 0.3 L Lymphocytes # 0.1 L Monocytes # 0.1 Eosinophils # 0.0 Basophils # 0.0 Platelet Estimate Marked Decrease L Hypochromasia Present A A. galactomannan Ag NEGATIVE A. galactomannan Ag Idx 0.06 Blood Type A POSITIVE Antibody Screen NEGATIVE Crossmatch See Detail Cultures: Cultures 04/03/18 20:35 Sputum Culture - Preliminary Sputum Fungal Elements Serology 04/06/18 04/03/18 Range/Units 03:55 12:18 Urine Color Yellow (Yellow) Urine Clarity Clear (Clear) Urine pH 7.5 (5.0-8.0) pH Units Ur Specific [place] 1.019 (1.010-1.025) Urine Protein Trace (Neg-Trace) mg/dL Urine Glucose (UA) Normal (Normal) mg/dL Urine Ketones Negative (Negative) mg/dL Urine Blood Negative (Negative) Urine Nitrite Negative (Negative) Urine Bilirubin Negative (Negative) Urine Urobilinogen Normal (Normal) mg/dL Ur Leukocyte Esterase Negative (Negative) Urine Microscopic RBC 0-3 (0-3) per hpf Urine Microscopic WBC 0-3 (0-3) per hpf Ur Squamous Epith Cells Moderate H (None-Few) per lpf Urine Bacteria None Seen (None-Few) per hpf Hyaline Casts None Seen (None-Few) per lpf Ur Culture Indicated? NO (NO) A. galactomannan Ag NEGATIVE (Negative) A. galactomannan Ag Idx 0.06 Exam - Constitutional Vitals: Temp Pulse Resp BP Pulse Ox 97.6 F 83 18 125/75 96 04/08/18 07:11 04/08/18 07:48 04/08/18 07:49 04/08/18 07:11 04/08/18 07:49 General appearance: mild distress - Head Head exam: Present: atraumatic, normal inspection - Respiratory Respiratory exam: Present: prolonged expiratory phase, wheezes (Expiratory wheezes are present bilaterally in all lung arvizu). Absent: decreased breath sounds, rales, rhonchi - Expanded Respiratory Exam Location: wheezes: Left, Right, Upper, Lower (Expiratory) - Cardiovascular Cardiovascular exam: Present: RRR, +S1, +S2. Absent: bradycardia, diastolic murmur, gallop, irregular rhythm, systolic murmur - GI/Abdominal GI/Abdominal exam: Present: soft. Absent: tenderness - Extremities Exam Extremities exam: Present: normal capillary refill Additional comments: Multiple bruises on upper extremities - Psychiatric Psychiatric exam: Present: normal affect, normal mood - Skin Skin exam: Present: dry, intact - VTE Documentation of Mechanical Device: Intermittent pneumatic compression device Consult Discharge Plan - Plan Referrals: Jhonny Perdomo MD [Primary Care Provider] - 04/14/18 10:45 am - Attending Attestation I examined this patient and my medical decision-making was reviewed with the Resident Physician. I agree with the documented findings, disposition and treatment plan as described except to the extent set forth below.
--- NOTE | 2018-04-08 09:08 | Internal Med Progress Note ---
Date of Encounter: 04/08/18 Time of Encounter: 11:00 - Assessment and plan (1) Neutropenic fever Current Visit: Yes Status: Acute Assessment and plan: Infectious disease following with recommendations to continue IV Zosyn Recommendations for CT abdomen/pelvis TO r/o out Typhlitis or intra-abdominal process Oncology following as well Appreciate any further recommendations (2) Acute and chronic respiratory failure with hypoxia Current Visit: Yes Status: Acute Assessment and plan: Patient is on 2L/min O2 via NC at home but now requiring almost 5L/min due to acute COPD and underlying lung cancer (3) Acute exacerbation of chronic obstructive airways disease Current Visit: Yes Status: Acute Assessment and plan: Continue IV steroids, DuoNeb's and supplemental O2; BiPAP support as needed (4) Sepsis Current Visit: Yes Status: Acute Assessment and plan: Patient presented with leukocytosis and tachycardia; low grade fever 100.5 Continue antibiotics for now, will f/up ID consult; Qualifiers: Sepsis type: sepsis due to unspecified organism Qualified Code(s): A41.9 - Sepsis, unspecified organism (5) Lung cancer Current Visit: Yes Status: Chronic Assessment and plan: h/o- right lung small cell carcinoma; follows with Oncology as outpatient, has been receiving concurrent chemoradiation with dose reduced Carboplatin and Etoposide, probably causing neutropenia; outpatient chemotherapy per Oncology; appreciate recommendations; Qualifiers: Laterality: right Lung location: unspecified part of lung Qualified Code( s): C34.91 - Malignant neoplasm of unspecified part of right bronchus or lung (6) Neutropenia Current Visit: Yes Status: Chronic Assessment and plan: WBC 3000, ANC 200; neutropenic precautions Oncology following and appreciate recommendations Qualifiers: Neutropenia type: unspecified Qualified Code(s): D70.9 - Neutropenia, unspecified (7) Pancytopenia due to antineoplastic chemotherapy Current Visit: Yes Status: Acute Assessment and plan: Oncology following as above and appreciate recommendations - Time Spent With Patient Total time spent is greater than 50% in coordination of care (as documented) at patient's floor/unit and/or counseling patient: - Subjective Interval history: Patient with continued pancytopenia in addition to require high amounts of O2 supplementation - Constitutional Vitals: Temp Pulse Resp BP Pulse Ox 97.6 F 83 18 125/75 96 04/08/18 07:11 04/08/18 07:48 04/08/18 07:49 04/08/18 07:11 04/08/18 07:49 General appearance: Present: A&O X 3, no acute distress, answers questions appropriately - Respiratory Respiratory exam: Present: CTAB. Absent: accessory muscle use, rales, rhonchi, wheezes - Cardiovascular Cardiovascular exam: Present: RRR, +S1, +S2. Absent: diastolic murmur, gallop, rubs, systolic murmur Internal Medicine: Result - Labs CBC & Chem 7: 04/08/18 03:25 04/08/18 09:20 Labs: Short CBC 04/08/18 Range/Units 03:25 WBC 0.5 L* D (4.3-11.1) K/mcL Hgb 8.1 L (11.5-15.4) g/dL Hct 23.8 L (35.3-44.9) % Plt Count 22 L* (140-400) K/mcL Neutrophils # 0.3 L (1.6-8.9) K/mcL - ABG Interpretation ABG results: ABG ABG pH 7.42 pH Units (7.32-7.45) 04/07/18 05:40 ABG pCO2 64 mmHg (35-45) H 04/07/18 05:40 ABG pO2 68 mmHg (85-104) L 04/07/18 05:40 ABG O2 Saturation 93 % (95-98) L 04/07/18 05:40 PT/INR, D-dimer PT 10.7 Seconds (9.4-12.1) 04/03/18 03:33 - VTE Documentation of Mechanical Device: Intermittent pneumatic compression device Consult Discharge Plan - Plan Referrals: Jhonny Perdomo MD [Primary Care Provider] - 04/14/18 10:45 am
[2018-04-08 10:02] LABS: Blood Urea Nitrogen 14 mg/dL (6-20); Calcium 8.6 mg/dL (8.6-10.3); Carbon Dioxide 34 mEq/L (23-29); Chloride 92 mEq/L (98-107); Glucose 196 mg/dL (70-105); Osmolality,Calculated 284 (280-300); Potassium 3.5 mEq/L (3.5-5.1); Sodium 134 mEq/L (136-145)
[2018-04-08 10:48] LABS: BUN/Creatinine Ratio 16 (6-26); eGFR For African Americans > 60 (> 60); eGFR For Non-African Americans > 60 (> 60)
--- NOTE | 2018-04-08 14:47 | Oncology Inp Progress Note ---
Date of Encounter: 04/08/18 Time of Encounter: 14:45 (1) Pancytopenia due to antineoplastic chemotherapy Current Visit: Yes Status: Acute Assessment and plan: Neutropenia- continue precautions. Afebrile. White count and ANC slight increase. Hopeful that she has reached marilynn we will see him bone marrow recovery. Did speak with Dr. Orosco from infectious disease he is going to start scaling back on antibiotics. Anemia- is receiving packed cells-hemoglobin 8.1 she did receive packed cells yesterday. Thrombocytopenia- weight was 22,000 with no evidence of active bleeding. She did receive platelet transfusion yesterday. She received cycle#3 Carbo/ Etoposide- 03/24 with a 25 % reduction in carboplatin. MARILYNN usually occurs about 14 days after this treatment is given. Continue supportive care as needed. (2) Lung cancer Current Visit: Yes Status: Chronic Assessment and plan: Will need to f/u with Dr. Adams regarding further treatment recommendations upon discharge. Qualifiers: Laterality: right Lung location: unspecified part of lung Qualified Code( s): C34.91 - Malignant neoplasm of unspecified part of right bronchus or lung (3) Anemia Current Visit: No Status: Chronic Assessment and plan: continue pulmonary toilet as per pulmonary and zosyn as per ID. Qualifiers: Anemia type: unspecified type Qualified Code(s): D64.9 - Anemia, unspecified (4) COPD exacerbation Current Visit: No Status: Acute Assessment and plan: Overall improvement in respiratory status. She does continue to use O2 percannula 5 L minute however her lung arvizu are much clearer. She reports that her breathing is less labored. Continue current pulmonary toilet. Oncology: Subj Interval history: States she is starting to feel better. She is asking when she gets to go home. Her breathing has improved, cough decreased and fills less short of breath. - Constitutional Vitals: Vital Signs Temp Pulse Resp BP Pulse Ox 04/08/18 11:24 16 94 04/08/18 11:22 87 04/08/18 11:02 98.1 F 87 18 138/63 95 04/08/18 07:49 18 96 04/08/18 07:48 83 04/08/18 07:11 97.6 F 83 15 125/75 92 04/08/18 03:49 97.6 F 82 18 132/60 95 04/08/18 03:07 17 92 04/08/18 01:20 98.2 F 82 18 147/80 04/08/18 00:12 20 96 04/07/18 23:36 97.7 F 93 20 120/70 95 04/07/18 23:18 97.9 F 96 22 141/83 93 04/07/18 22:54 98.5 F 102 16 110/61 95 04/07/18 20:27 98.3 F 107 16 125/69 94 04/07/18 20:24 16 96 04/07/18 20:12 98.5 F 103 20 107/65 93 04/07/18 19:57 98.4 F 101 22 132/70 91 04/07/18 19:51 98.2 F 97 16 127/72 90 04/07/18 18:50 97.9 F 108 16 122/54 93 04/07/18 16:06 98.2 F 117 20 135/70 96 04/07/18 15:11 98.4 F 107 16 135/70 94 04/07/18 15:04 98.1 F 112 16 131/92 Intake and Output 04/07/18 04/08/18 04/08/18 23:59 07:59 15:59 Intake Total 920 / 920 1190 / 1190 480 / 480 Output Total 350 / 350 500 / 500 1050 / 1050 Balance 570 / 570 690 / 690 -570 / -570 Intake: IV Fluids 100 / 100 200 / 200 Zosyn 3.375 GM In 0.9 % Sodium 100 / 100 200 / 200 Chloride (Mini-Bag +) 100 ML @ 25 mls/hr IVPB Q8H [facility] Rx#: [id number] Oral 240 / 240 640 / 640 480 / 480 Blood Product 580 / 580 350 / 350 Platelet Pheresis Lp Irr 2nd 270 / 270 Unit [id number] Rbcs Leuko Poor As-1 Unit 0 / 0 350 / 350 [id number] Rbcs Leuko Poor As-1 Unit 310 / 310 [id number] Output: Urine 350 / 350 500 / 500 1050 / 1050 Other: Meal Lunch Percent of Meal Consumed 25% Stool Size Small Stool Consistency soft # Bowel Movements 1 Weight 69 kg Patient Weight 04/08/18 23:59 Weight 69 kg General appearance: cooperative, no acute distress - Head Head exam: Present: normal inspection - Respiratory Additional comments: Slight crackles in right base otherwise clear-great improvement since previous exam. She remains at 5 L/m with saturation at 94%. - Cardiovascular Cardiovascular exam: Present: RRR - GI/Abdominal GI/Abdominal exam: Present: normal bowel sounds, soft - Extremities Exam Extremities exam: Present: normal capillary refill, normal inspection - Neurological Exam Neurological exam: Present: alert - Psychiatric Psychiatric exam: Present: normal affect, normal mood Oncology: Obj Data - Labs CBC & Chem 7: 04/08/18 03:25 04/08/18 09:20 Labs: Laboratory Results - last 24 hr 04/05/18 04/06/18 04/08/18 09:00 03:55 03:25 WBC 0.5 L* D RBC 2.85 L Hgb 8.1 L Hct 23.8 L MCV 83.5 MCH 28.4 MCHC 34.0 RDW 15.6 H Plt Count 22 L* MPV 11.0 Immature Gran % 4.0 Seg Neutrophils % 64.0 Lymphocytes % 14.0 Monocytes % 18.0 Eosinophils % 0.0 Basophils % 0.0 Neutrophils # 0.3 L Lymphocytes # 0.1 L Monocytes # 0.1 Eosinophils # 0.0 Basophils # 0.0 Platelet Estimate Marked Decrease L Hypochromasia Present A Sodium Potassium Chloride Carbon Dioxide BUN Creatinine Est GFR ( Amer) Est GFR (Non-Af Amer) BUN/Creatinine Ratio Glucose Calculated Osmolality Calcium A. galactomannan Ag NEGATIVE A. galactomannan Ag Idx 0.06 Blood Type A POSITIVE Antibody Screen NEGATIVE Crossmatch See Detail 04/08/18 09:20 WBC RBC Hgb Hct MCV MCH MCHC RDW Plt Count MPV Immature Gran % Seg Neutrophils % Lymphocytes % Monocytes % Eosinophils % Basophils % Neutrophils # Lymphocytes # Monocytes # Eosinophils # Basophils # Platelet Estimate Hypochromasia Sodium 134 L Potassium 3.5 Chloride 92 L Carbon Dioxide 34 H BUN 14 Creatinine 0.88 Est GFR ( Amer) > 60 Est GFR (Non-Af Amer) > 60 BUN/Creatinine Ratio 16 Glucose 196 H Calculated Osmolality 284 Calcium 8.6 A. galactomannan Ag A. galactomannan Ag Idx Blood Type Antibody Screen Crossmatch - Impressions Impressions Abdomen/Pelvis CT 04/08/18 12:00 IMPRESSION: 1. No definite intra-abdominal abnormality to explain the patient's symptoms. 2. Partial visualization of right infrahilar consolidation, right base opacity, and small effusion. Findings may represent infection in the appropriate clinical setting. 3. Status post cholecystectomy. 4. Moderate diverticulosis. D/ / 04/08/2018 13:14:52 Kelsey Sunshine MD / norah Interpreting Provider: Kelsey Sunshine MD Sinuses CT 04/08/18 12:00 IMPRESSION: No evidence of acute or chronic sinusitis. Clear ostiomeatal units. Midline septum. Normal size of the turbinates. No abnormality seen within either ear. D/ / Byron Ryder MD / Byron Ryder MD Interpreting Provider: Byron Ryder MD - ABG Interpretation ABG results: ABG ABG pH 7.42 pH Units (7.32-7.45) 04/07/18 05:40 ABG pCO2 64 mmHg (35-45) H 04/07/18 05:40 ABG pO2 68 mmHg (85-104) L 04/07/18 05:40 ABG O2 Saturation 93 % (95-98) L 04/07/18 05:40 PT/INR, D-dimer PT 10.7 Seconds (9.4-12.1) 04/03/18 03:33 Consult Discharge Plan - Plan Referrals: Jhonny Perdomo MD [Primary Care Provider] - 04/14/18 10:45 am
[2018-04-09] MEDS: Ipratropium/Albuterol Neb 3 ML IH SCH ×4 (00:07→11:12)
[2018-04-09] MEDS: Piperacillin/Tazobactam 3.375 GM in 0.9 % Sodium Chloride Mini Bag 100 ML IVPB SCH ×2 (03:36→11:17)
[2018-04-09] MEDS: *HR* OxyCODONE Immed Rel 5 MG TABLET PO PRN (03:38)
[2018-04-09] MEDS: MethylPREDNISolone 40 MG/ML VIAL IVP SCH (07:28)
[2018-04-09] MEDS: Gabapentin 300 MG CAPSULE PO SCH (07:28)
[2018-04-09 09:57] LABS: Red Blood Count 3.29 M/mcL (3.82-4.97)
[2018-04-09 09:58] LABS: Hematocrit 27.1 % (35.3-44.9); Hemoglobin 9.2 g/dL (11.5-15.4); Lymphocytes # 0.1 K/mcL (0.6-4.6); Mean Corpuscular HGB Conc 33.9 g/dL (31.6-35.5); Mean Corpuscular Volume 82.4 fL (83.0-100.0); Mean Platelet Volume 11.4 fL (9.4-12.4); Monocytes # 0.1 K/mcL (0.0-1.3); Monocytes % 19.4 %; Neutrophils # 0.5 K/mcL (1.6-8.9); Red Cell Distribution Width 15.3 % (11.5-14.5); Segmented Neutrophils % 71.6 %
[2018-04-09 10:02] LABS: Platelet Count 14 K/mcL (140-400)
[2018-04-09 10:20] LABS: BUN/Creatinine Ratio 12 (6-26); Blood Urea Nitrogen 10 mg/dL (6-20); Calcium 8.9 mg/dL (8.6-10.3); Carbon Dioxide 39 mEq/L (23-29); Chloride 91 mEq/L (98-107); Glucose 188 mg/dL (70-105); Osmolality,Calculated 284 (280-300); Potassium 3.3 mEq/L (3.5-5.1); Sodium 135 mEq/L (136-145); eGFR For African Americans > 60 (> 60); eGFR For Non-African Americans > 60 (> 60)
[2018-04-09 10:26] LABS: Platelet Estimate Decreased (Normal)
[2018-04-09 11:14] VITALS: BP 146/77
--- NOTE | 2018-04-09 11:44 | Discharge Summary ---
- NOTES TO OUTPATIENT PROVIDER Notes to Outpatient Provider: Follow-up with hematology oncology Date of Encounter: 04/09/18 Time of Encounter: 11:00 - Discharge Diagnosis (1) Neutropenic fever Priority: Primary Status: Acute (2) Acute and chronic respiratory failure with hypoxia Priority: Primary Status: Acute (3) Acute exacerbation of chronic obstructive airways disease Priority: Primary Status: Acute (4) Sepsis Priority: Primary Status: Acute Qualifiers: Sepsis type: sepsis due to unspecified organism Qualified Code(s): A41.9 - Sepsis, unspecified organism (5) Lung cancer Priority: Secondary Status: Chronic Qualifiers: Laterality: right Lung location: unspecified part of lung Qualified Code( s): C34.91 - Malignant neoplasm of unspecified part of right bronchus or lung (6) Neutropenia Priority: Secondary Status: Chronic Qualifiers: Neutropenia type: unspecified Qualified Code(s): D70.9 - Neutropenia, unspecified (7) Pancytopenia due to antineoplastic chemotherapy Priority: Secondary Status: Acute Hospital course: Patient is a 52-year-old female with past medical history significant for O2 dependent COPD, hyperlipidemia, hypertension and small cell lung carcinoma who presented to the ER on 04/02/18 due to shortness of breath. Patient presented to the ER with shortness of breath just one day after being discharged from the hospital for COPD exacerbation. Patient also complained of increased sputum production which she had prior to previous admission that had resolved with treatment as an inpatient. In the ER, patient was found to be somnolent and was placed on BiPAP due to being in hypercapnic respiratory failure. She was admitted to ICU for treatment for sepsis secondary to right lower lobe pneumonia and acute respiratory failure. During patients hospital stay patient was noted to be pancytopenic secondary to chemotherapy for small cell lung carcinoma. Patients symptoms improved on IV Zosyn. Hematology oncology was consulted with recommendations for supportive care for pancytopenia due to antineoplastic chemotherapy. Infectious disease was also consulted with recommendations to discharge patient to complete a seven-day course of Levaquin. - Time Spent with Patient Total time spent providing and/or coordinating discharge services: Less than 30 minutes - Discharge Medications Prescriptions: levoFLOXacin [Levaquin] 750 mg PO DAILY #7 tablet Home Medications: Albuterol Neb [AccuNeb] 0.63 mg IH Q6H PRN 11/27/17 [History] Albuterol Sulfate [Ventolin Hfa] 2 puff IH Q4H PRN 11/27/17 [History] Atenolol [Tenormin] 25 mg PO DAILY 11/27/17 [History] Diclofenac Sodium [Voltaren] 1 appl TP 5XD 11/27/17 [History] Gabapentin [Neurontin] 600 mg PO TID 11/27/17 [History] Ipratropium/Albuterol Sulfate [Combivent Respimat 20-100 Mcg] 1 puff IH QID [History] Loratadine [Claritin] 10 mg PO DAILY 11/27/17 [History] Montelukast [Singulair] 10 mg PO HS 11/27/17 [History] Omeprazole [PriLOSEC] 20 mg PO DAILY 11/27/17 [History] Oxybutynin [Ditropan] 2.5 mg PO DAILY 11/27/17 [History] Oxygen 2 l NS AD 11/27/17 [History] Spironolactone [Aldactone] 25 mg PO BID 11/27/17 [History] DULoxetine [Cymbalta] 30 mg PO DAILY 11/29/17 [History] Ipratropium/Albuterol Neb [Duoneb] 3 ml IH [id number] PRN #100 inhsol 02/25/18 [Rx] Docusate [Colace] 100 mg PO BID PRN capsule 03/07/18 [Rx] ALPRAZolam [Xanax 0.5 MG Tablet] 0.5 mg PO QID PRN 30 Days #120 tablet 03/17/18 [Rx] OxyCODONE Immed Rel [Roxicodone 5 MG] 5 - 10 mg PO Q4H PRN 30 Days #240 tablet 03/17/18 [Rx] predniSONE [PredniSONE] 40 mg PO DAILY 2 Days #4 tablet 04/01/18 [Rx] Fluticasone/Salmeterol [Advair 250-50 Diskus] 1 puff IH BID 04/02/18 [History] Fluticasone/Vilanterol [Breo Ellipta 100-25 Mcg INH] 1 puff IH DAILY 04/02/18 [ History] Nicotine Patch [Nicoderm] 21 mg TD DAILY 04/02/18 [History] levoFLOXacin [Levaquin] 750 mg PO DAILY #7 tablet 04/09/18 [Rx] Allergies/Adverse Reactions: 3 Allergy/AdvReac Type Severity Reaction Status Date / Time budesonide [From Symbicort] AdvReac Chest Pain Verified 03/04/18 07:38 Formoterol [From Symbicort] AdvReac Chest Pain Verified 03/04/18 07:38 Date of admission: 04/02/18 21:59 Primary care physician: Jhonny Perdomo MD Consults: 04/03/18 07:56 Consult to Oncology [CONS] Stat Consulting Provider: [facility] [place] Reason for Consult: R small cell lung CA, currently getting rad, neutropenia Time Notified: 07:56 Call Completed: Yes 04/03/18 10:41 Consult to Invasive Line Access Team [CONS] Routine Reason for Consult: powerglide insertion Line Type: EPIV 04/06/18 16:44 Consult to Occupational Therapy [CONS] Routine Comment: Evaluate, develop and implement POC Reason for Consult: Generalized weakness, respiratory distress Does patient have active BEDREST order?: No Is patient medically & hemodynamically stable?: No Patient assessed for mobility or mobilized this visit?: No Consult to Physical Therapy [CONS] Routine Comment: Evaluate, develop and implement POC Reason for Consult: Generalized weakness, respiratory distress Does patient have active BEDREST order?: No Is patient medically & hemodynamically stable?: No Patient assessed for mobility or mobilized this visit?: No 04/07/18 09:27 Consult to Infectious Diseases [CONS] Routine Consulting Provider: Infectious Disease Cheryl Reason for Consult: SOB, Neutropenia, sputum culture with fungal elements; on multiple broad spectrum antibiotics; Call Completed: Yes - Constitutional Vitals: Temp Pulse Resp BP Pulse Ox 98.2 F 98 18 146/77 95 04/09/18 11:12 04/09/18 11:21 04/09/18 11:15 04/09/18 11:12 04/09/18 11:15 General appearance: Present: A&O X 3, no acute distress, answers questions appropriately - Patient Status Disposition: Home, Self-Care Condition: Critical - Discharge Instructions Instructions: Acute Respiratory Distress Syndrome (DC), Chronic Obstructive Pulmonary Disease (DC) Follow Up With: Jhonny Perdomo MD [Primary Care Provider] - 04/14/18 10:45 am - VTE Documentation of Mechanical Device: Intermittent pneumatic compression device
== END 2018-04-09 14:04 | disposition home or self-care (01) | DRG 720 ==
LOC: EMEROO 01:35 → ICNU 01:35 → SUATTDRO 21:59 → ICNU 04-03 12:18 → 2NENU 04-05 14:33 → 2NNU 04-06 14:54
PROVIDERS: ADMIT Internal Medicine Pulmonary Disease; ATTEND Hospitalist